=== PATIENT | female | born 1935 | race Caucasian/White ===

== ENCOUNTER 2016-04-28 05:53 | Outpatient (CLI) | payer MEDICARE ==
[~2016-04-28] VITALS: Ht 162.6 cm; Wt 103.6 kg
[~2016-04-28 05:53] MED LIST: ACET-461 PO; ASP81CT PO; ASP81TEC PO; ATEN25TA PO; ATEN50TA PO; ATN25T PO; Atorvastatin Calcium PO; BUDE6HFA IH; CALC-80 PO; CEFD300C3 PO; CEPH500C; CHOL50003 PO; CITA10TA70 PO; CLCX200C; D50KC PO; DIPH1TAB25 PO; DIPH1TAB29 PO; ESCT10T; FEXO180T PO; FISH OIL 1,2001 EAC1 PO; FLC1T PO; FOLI0.4T2 PO; FOLI1TAB11 PO; GMFB600T; HYDR-3714 PO; HYDR-3812 PO; IRON150C6 PO; LMTL2.5TRX PO; MTX2.5T PO; MULT-608 PO; NITR-65 PO; OMEG1CAP58 PO; ONDA4TAB11 PO; ONDA8TAB2; PHEN200T27 PO; ROPI0.5T2; SENN1TAB76 PO; TRHC5025; TRIA1TAB2 PO; VIT B12 PO; WARF2.5T PO; WARF5TAB PO; WARF7.5T PO; WRF10T PO; WRF5T PO
--- OUTSIDE RECORDS SUMMARY | 2016-04-28 05:57 | XMS REPORT | Continuity of Care Document ---
Author Author [facility] Organization [facility] Address Unknown Phone Unavailable Care Team Providers Care Safemaker Name Role Phone GUMARO HILL MD PCP Insurance Providers Payer Name Policy Number Subscriber Name Relationship Wps Medicare [id number] Jessi Loay 18 Self / Same As Patient Blue Cross [facility] Supp [id number] Jessi Loya Self / Same As Patient Advance Directives Directive Response Recorded Date/Time Advance Directives No 02/03/14 5:55pm Health Care Power of Zoogler No 02/03/14 5:55pm Organ Donor No 02/03/14 5:55pm Resuscitation Status Full Code 02/03/14 5:55pm Problems Medical Problems Problem Onset Date Status Right upper quadrant pain Unknown Active Nausea Unknown Active Biliary sludge Unknown Active Medications Medication Dose Route Sig Days/Qty Instructions Order Date Discontinued Date Status Celecoxib 06/04/07 12/04/09 Discontinued Methotrexate 10 Mg PO WEEKLY ON Mondays06/04/07 Active Warfarin Sodium 5 Mg PO MON,MON,MON,SUN 06/04/07 04/08/10 Discontinued Warfarin Sodium 7.5 Mg PO ,,Mon06/04/07 04/08/10 Discontinued Gemfibrozil 06/04/07 12/04/09 Discontinued Escitalopram Oxalate 06/04/07 12/04/09 Discontinued Atenolol 1 Tab PO THREE TIMES A DAY 06/04/07 12/04/09 Discontinued Triamterene/HCTZ 06/04/07 12/04/09 Discontinued Triamterene/Hctz 37.5 Mg PO DAILY 12/04/09 Active Fexofenadine HCl 1 Tab PO TWICE A DAY 12/04/09 12/04/09 Discontinued Diphenhydra/Phenyleph/Acetamin 1 Each PO DAILY 12/04/09 12/04/09 Discontinued Atenolol 50 Mg PO TWICE A DAY 12/04/09 Active Atenolol 25 Mg PO EVENING 12/04/09 12/05/09 Discontinued Citalopram Hydrobromide 10 Mg PO DAILY 12/04/09 Active Folic Acid 2 Each PO DAILY 12/04/09 04/08/10 Discontinued Calcium Carbonate/Vitamin D3 1 Each PO TWICE A DAY 12/04/09 Active Colbert-3 Fatty Acids/Fish Oil 1 Each PO TWICE A DAY 12/04/09 Active Diphenoxylate/Atropine 1 Ea PO TWICE A DAY PRN 12/04/09 Active [Vit B12] 1,000 Mcg PO DAILY 12/04/09 Active Folic Acid/Mv,Fe,Other Min 1 Mg PO DAILY 12/04/09 04/08/10 Discontinued Acetaminophen 500 - 1000 Mg PO EVERY 4HRS PRN 04/08/10 Active Multivitamins 1 Tab PO DAILY 04/08/10 05/01/12 Discontinued Colbert-3/Colbert-6/Colbert-9 Fatty Acids (Lovaza) 1 Each PO 04/08/10 Discontinued Senna 1 Ea PO TWICE A DAY 04/08/10 05/01/12 Discontinued Folic Acid 1 Mg PO DAILY 04/08/10 Active Warfarin Sodium 7.5 Mg PO Garcia,Tu,Th,Sa 04/08/10 Active Warfarin Sodium 5 Mg PO [email or web address] 05/01/12 Active Cholecalciferol 5,000 Unit PO DAILY 05/01/12 Active Ergocalciferol 50,000 Unit PO 2X month 05/01/12 Active Aspirin 81 Mg PO DAILY 05/29/12 Active Ondansetron 4 Mg PO EVERY 6 HOURS PRN NAUSEA/VOMITING 10 Qty 01/28/14 Active Hydrocodone Bit/Acetaminophen 0.5-1 Tab PO EVERY 4HRS PRN PAIN 14 Qty 01/28/14 Active Social History Social History Problem Response Recorded Date/Time Alcohol Use Occasionally Uses 02/03/2014 6:07pm Recreational Drug Use No 02/03/2014 6:07pm Recent Foreign Travel No 02/03/2014 6:07pm Recent Infectious Disease Exposure No 02/03/2014 6:07pm Hospitalization with Isolation Denies 02/04/2014 4:04pm Sexually Transmitted Disease No 02/03/2014 6:07pm HIV/AIDS No 02/03/2014 6:07pm Smoking Status Former Smoker 02/03/2014 5:57pm Do you dip or chew tobacco? No 02/03/2014 5:57pm Query Response Start Date Stop Date Smoking Status Former Smoker 02/13/1977 Hospital Discharge Instructions Patient Instructions Physician Instructions New, Converted or Re-Newed RX: RX on Chart Plan of Care/Instructions/FU: Dressings off in a.m.(02/04). Incentive spirometry for at least 1 week. Follow up in 3 weeks. Activity as Tolerated: Yes Discharge Diet: Regular Diet Plan of Care Discharge Date 02/04/14 3:25pm Disposition 01 HOME, SELF-CARE Instructions/Education Provided Laparoscopic Cholecystectomy (DC) Forms Provided PDI Surgical Prescriptions See Medications Section Referrals JOSESITO VERONICA MD (Unspecified) Address: [address] [place] [address] Reason(s) for Referral: FOLLOW UP APPOINTMENT: February AT 2:15PM WITH DR. VERONICA. Functional Status Query Response Date Recorded Patient Orientation Person Place Time Situation Normal For Age February 04, 2014 4:04pm Allergies, Adverse Reactions, Alerts Allergen Type Severity Reaction Status Last Updated No Known Drug Allergies Active 06/04/07 Immunizations Name Given Type Date of Pneumonia Vaccine 02/14/08 Historical Date of Influenza Vaccine 11/27/13 Historical Vital Signs Acute Vital Signs Vital Response Date/Time Temperature (Fahrenheit) 97.7 degrees F (97.6 - 99.5) Temperature (Calculated Celsius) 36.18280 degrees C (36.4 - 37.5) Temperature Source Tympanic Pulse Rate (adult) 53 bpm (60 - 90) Respiratory Rate 18 bpm (12 - 24) O2 Sat by Pulse Oximetry 92 % (88 - 100) Blood Pressure 121/65 mm Hg Pain Pain Intensity 1 Height (Feet) 5 feet Height (Inches) 4.00 inches Height (Calculated Centimeters) 162.880656 cm Weight (Pounds) 216 pounds Weight (Ounces) 6.0 oz Weight (Calculated Grams) 28801.050 gm Weight (Calculated Kilograms) 98.959577 kilograms Calculated BMI 37.07 Results Laboratory Results Test Name Result Units Flags Reference Collection Date/Time Result Date/ Time Comments White Blood Count 3.5 10^3/uL L 4.3-11.0 01/28/2014 11:38am 01/28/2014 11 :57am Red Blood Count 4.34 10^6/uL L 4.35-5.85 01/28/2014 11:38am 01/28/2014 11 :57am Hemoglobin 13.7 G/DL 11.5-16.0 01/28/2014 11:38am 01/28/2014 11:57am Hematocrit 42 % 35-52 01/28/2014 11:38am 01/28/2014 11:57am Mean Corpuscular Volume 96 FL 80-99 01/28/2014 11:38am 01/28/2014 11: 57am Mean Corpuscular Hemoglobin 32 PG 25-34 01/28/2014 11:38am 01/28/2014 11:57am Mean Corpuscular Hemoglobin Concent 33 G/DL 32-36 01/28/2014 11:38am 11:57am Red Cell Distribution Width 15.7 % H 10.0-14.5 01/28/2014 11:38am 2013 11:57am Platelet Count 121 10^3/uL L 130-400 01/28/2014 11:38am 01/28/2014 11: 57am Mean Platelet Volume 11.3 FL H 7.4-10.4 01/28/2014 11:38am 01/28/2014 11: 57am Neutrophils (%) (Auto) 56 % 42-75 01/28/2014 11:38am 01/28/2014 11: 57am Lymphocytes (%) (Auto) 34 % 12-44 01/28/2014 11:38am 01/28/2014 11: 57am Monocytes (%) (Auto) 9 % 0-12 01/28/2014 11:38am 01/28/2014 11:57am Eosinophils (%) (Auto) 1 % 0-10 01/28/2014 11:38am 01/28/2014 11:57am Basophils (%) (Auto) 1 % 0-10 01/28/2014 11:38am 01/28/2014 11:57am Neutrophils # (Auto) 1.9 X 10^3 1.8-7.8 01/28/2014 11:38am 01/28/2014 11:57am Lymphocytes # (Auto) 1.2 X 10^3 1.0-4.0 01/28/2014 11:38am 01/28/2014 11:57am Monocytes # (Auto) 0.3 X 10^3 0.0-1.0 01/28/2014 11:38am 01/28/2014 11: 57am Eosinophils # (Auto) 0.0 10^3/uL 0.0-0.3 01/28/2014 11:38am 01/28/2014 11:57am Basophils # (Auto) 0.0 10^3/uL 0.0-0.1 01/28/2014 11:38am 01/28/2014 11 :57am Prothrombin Time 22.1 SEC H 12.2-14.7 01/28/2014 11:38am 01/28/2014 12: 04pm INR Comment 2.0 H 0.8-1.4 01/28/2014 11:38am 01/28/2014 12:04pm INTERPRETIVE DATA SUGGESTED THERAPEUTIC RANGE FOR INR'S: VENOUS THROMBOSIS, PULMONARY EMBOLISM, OR PREVENTION OF SYSTEMIC EMBOLISM (EG. IN ATRIAL FIBRILLATION): 2.0 - 3.0 MECHANICAL PROSTHETIC HEART VALVES: 2.5 - 3.5* *NOTE: INR'S UP TO 4.5 MAY BE NECESSARY IN SELECTED GROUPS OF HIGH RISK PATIENTS. [employer] [place] COL[employer] OF CHEST PHYSICIANS CONSENSUS CONFERENCE ON ANTITHROMBOTIC THERAPY (2000). Activated Partial Thromboplast Time 37 SEC H 24-35 01/28/2014 11:38am 12:04pm Urine Color YELLOW 01/28/2014 11:08am 01/28/2014 12:04pm Urine Clarity CLEAR 01/28/2014 11:08am 01/28/2014 12:04pm Urine pH 7 5-9 01/28/2014 11:08am 01/28/2014 12:04pm Urine Specific [place] 1.010 * 1.016-1.022 01/28/2014 11:08am 2013 12:04pm Urine Protein NEGATIVE NEGATIVE 01/28/2014 11:08am 01/28/2014 12: 04pm Urine Glucose (UA) NEGATIVE NEGATIVE 01/28/2014 11:08am 01/28/2014 12 :04pm Urine RBC (Auto) NEGATIVE NEGATIVE 01/28/2014 11:08am 01/28/2014 12: 04pm Urine Ketones NEGATIVE NEGATIVE 01/28/2014 11:08am 01/28/2014 12: 04pm Urine Nitrite NEGATIVE NEGATIVE 01/28/2014 11:08am 01/28/2014 12: 04pm Urine Bilirubin NEGATIVE NEGATIVE 01/28/2014 11:08am 01/28/2014 12: 04pm Urine Urobilinogen NORMAL MG/DL NORMAL 01/28/2014 11:08am 01/28/2014 12 :04pm Urine Leukocyte Esterase NEGATIVE NEGATIVE 01/28/2014 11:08am 2013 12:04pm Urine RBC NONE /HPF 01/28/2014 11:08am 01/28/2014 12:04pm Urine WBC NONE /HPF 01/28/2014 11:08am 01/28/2014 12:04pm Urine Bacteria NEGATIVE /HPF 01/28/2014 11:08am 01/28/2014 12:04pm Urine Squamous Epithelial Cells RARE /HPF 01/28/2014 11:08am 2013 12:04pm Urine Crystals NONE /LPF 01/28/2014 11:08am 01/28/2014 12:04pm Urine Casts NONE /LPF 01/28/2014 11:08am 01/28/2014 12:04pm Urine Mucus NEGATIVE /LPF 01/28/2014 11:08am 01/28/2014 12:04pm Urine Culture Indicated NO 01/28/2014 11:08am 01/28/2014 12:04pm Sodium Level 139 MMOL/L 135-145 01/28/2014 11:38am 01/28/2014 12:10pm Potassium Level 4.7 MMOL/L 3.6-5.0 01/28/2014 11:38am 01/28/2014 12: 10pm Chloride Level 102 MMOL/L 98-107 01/28/2014 11:38am 01/28/2014 12:10pm Carbon Dioxide Level 27 MMOL/L 21-32 01/28/2014 11:38am 01/28/2014 12: 10pm Blood Urea Nitrogen 18 MG/DL 7-18 01/28/2014 11:38am 01/28/2014 12: 10pm Creatinine 0.77 MG/DL 0.60-1.30 01/28/2014 11:38am 01/28/2014 12:10pm BUN/Creatinine Ratio 23 01/28/2014 11:38am 01/28/2014 12:10pm Estimat Glomerular Filtration Rate > 60 01/28/2014 11:38am 2013 12:10pm GFR INTERPRETIVE DATA UNITS FOR ESTIMATED GFR (eGFR): mL/min/1.73 M2 REFERENCE RANGE FOR ESTIMATED GFR (eGFR) eGFR NORMAL eGFR >60 MODERATELY DECREASED eGFR 30-59 SEVERLY DECREASED eGFR 15-29 KIDNEY FAILURE <15 (OR DIALYSIS) Glucose Level 100 MG/DL 70-105 01/28/2014 11:38am 01/28/2014 12:10pm Calcium Level 9.1 MG/DL 8.5-10.1 01/28/2014 11:38am 01/28/2014 12:10pm Total Bilirubin 0.7 MG/DL 0.1-1.0 01/28/2014 11:38am 01/28/2014 12: 10pm Alkaline Phosphatase 43 U/L 40-136 01/28/2014 11:38am 01/28/2014 12: 10pm Aspartate Amino Transf (AST/SGOT) 24 U/L 5-34 01/28/2014 11:38am 2013 12:10pm Alanine Aminotransferase (ALT/SGPT) 21 U/L 0-55 01/28/2014 11:38am 12:10pm Total Protein 6.7 G/DL 6.4-8.2 01/28/2014 11:38am 01/28/2014 12:10pm Albumin 3.9 G/DL 3.2-4.5 01/28/2014 11:38am 01/28/2014 12:10pm Lipase 14 U/L 8-78 01/28/2014 11:38am 01/28/2014 12:10pm Procedures Procedure Status Date Provider(s) Laparoscopic cholecystectomy completed 02/03/14 JOSESITO VERONICA MD Tracing only of electrocardiogram completed 02/03/14 JOSESITO VERONICA MD Encounters Encounter Location Date/Time Discharged Inpatient Via [facility] 02/03/14 5:11pm Registered Clinic [facility] 01/29/14 2:32pm Departed Emergency Room [facility] 01/28/14 11:02am Registered Clinic [facility] 01/24/14 9:52am
[2016-04-28] MEDS ORDERED: PARO20TA5 PO (10:45)
== END 2016-04-28 11:07 ==
LOC: PREOP 05:53
PROVIDERS: ATTEND Surgery
DX: Z01.818 Encounter for other preprocedural examination (principal); Z12.11 Encounter for screening for malignant neoplasm of colon

== ENCOUNTER 2016-05-02 10:23 | Day surgery (SDC) | payer MEDICARE ==
[~2016-05-02] VITALS: Ht 162.6 cm; Wt 103.6 kg
[~2016-05-02 10:23] MED LIST changes: +PARO20TA5 PO
--- OUTSIDE RECORDS SUMMARY | 2016-05-02 10:28 | XMS REPORT | Continuity of Care Document ---
Author Author [facility] Organization [facility] Address Unknown Phone Unavailable Care Team Providers Care Parachute Inspector Name Role Phone GUMARO HILL MD PCP Insurance Providers Payer Name Policy Number Subscriber Name Relationship Wps Medicare [id number] Jessi Loya 18 Self / Same As Patient Blue Cross [facility] Supp [id number] Jessi Loya Self / Same As Patient Advance Directives Directive Response Recorded Date/Time Advance Directives No 02/03/14 5:55pm Health Care Power of Stab Setter And Driller No 02/03/14 5:55pm Organ Donor No 02/03/14 [...] Each PO TWICE A DAY 12/04/09 Active [place]-3 Fatty Acids/Fish Oil 1 Each PO TWICE A DAY 12/04/09 Active Diphenoxylate/Atropine 1 Ea PO TWICE A DAY PRN 12/04/09 Active [Vit B12] 1,000 Mcg PO DAILY 12/04/09 Active Folic Acid/Mv,Fe,Other Min 1 Mg PO DAILY 12/04/09 04/08/10 Discontinued Acetaminophen 500 - 1000 Mg PO EVERY 4HRS PRN 04/08/10 Active Multivitamins 1 Tab PO DAILY 04/08/10 05/01/12 Discontinued [place]ier-3/Whittier-6/[place]ittier-9 Fatty Acids (Lovaza) 1 Each PO 04/08/10 [...] Section Referrals JOSESITO VERONICA MD (Unspecified) Address: [address] [place] [address] Reason(s) for Referral: FOLLOW UP APPOINTMENT: February [...] F (97.6 - 99.5) Temperature (Calculated Celsius) 36.25112 degrees C (36.4 - 37.5) Temperature Source Tympanic Pulse Rate (adult) 53 bpm (60 - 90) Respiratory Rate 18 bpm (12 - 24) O2 Sat by Pulse Oximetry 92 % (88 - 100) Blood Pressure 121/65 mm Hg Pain Pain Intensity 1 Height (Feet) 5 feet Height (Inches) 4.00 inches Height (Calculated Centimeters) 162.981448 cm Weight (Pounds) 216 pounds Weight (Ounces) 6.0 oz Weight (Calculated Grams) 14147.050 gm Weight (Calculated Kilograms) 98.572412 kilograms Calculated BMI 37.07 Results Laboratory Results [...] SELECTED GROUPS OF HIGH RISK PATIENTS. [employer] [place] [employer] CONSENSUS CONFERENCE ON ANTITHROMBOTIC THERAPY (2000). Activated Partial Thromboplast Time 37 SEC H 24-35 01/28/2014 11:38am 12:04pm Urine Color YELLOW 01/28/2014 11:08am 01/28/2014 12:04pm Urine Clarity CLEAR 01/28/2014 11:08am 01/28/2014 12:04pm Urine pH 7 5-9 01/28/2014 11:08am 01/28/2014 12:04pm Urine Specific [place] 1.010 * 1.016-1.022 01/28/2014 11:08am 2013 12:04pm [...] Encounters Encounter Location Date/Time Discharged Inpatient [facility] 02/03/14 5:11pm Registered Clinic [facility] 01/29/14 2:32pm Departed Emergency Room Via [facility] 01/28/14 11:02am Registered Clinic [facility] 01/24/14 9:52am
--- OUTSIDE RECORDS SUMMARY | 2016-05-02 10:29 | XMS REPORT | Continuity of Care Document ---
Author Author [facility] Organization [facility] Address Unknown Phone Unavailable Care Team Providers Care Application Tester Name Role Phone GUMARO HILL MD PCP Insurance Providers Payer Name Policy Number Subscriber Name Relationship Wps Medicare [id number] Jessi Loya 18 Self / Same As Patient Blue Cross [facility] Supp [id number] Jessi Loya Self / Same As Patient Advance Directives Directive Response Recorded Date/Time Advance Directives No 02/03/14 5:55pm Health Care Power of Shop Girl No 02/03/14 5:55pm Organ Donor No 02/03/14 [...] Each PO TWICE A DAY 12/04/09 Active Melbeta-3 Fatty Acids/Fish Oil 1 Each PO TWICE A DAY 12/04/09 Active Diphenoxylate/Atropine 1 Ea PO TWICE A DAY PRN 12/04/09 Active [Vit B12] 1,000 Mcg PO DAILY 12/04/09 Active Folic Acid/Mv,Fe,Other Min 1 Mg PO DAILY 12/04/09 04/08/10 Discontinued Acetaminophen 500 - 1000 Mg PO EVERY 4HRS PRN 04/08/10 Active Multivitamins 1 Tab PO DAILY 04/08/10 05/01/12 Discontinued Melbeta-3/Melbeta-6/Melbeta-9 Fatty Acids (Lovaza) 1 Each PO 04/08/10 [...] Section Referrals JOSESITO VERONICA MD (Unspecified) Address: [address] [place] [address] Reason(s) for Referral: FOLLOW UP APPOINTMENT: February [...] F (97.6 - 99.5) Temperature (Calculated Celsius) 36.19973 degrees C (36.4 - 37.5) Temperature Source Tympanic Pulse Rate (adult) 53 bpm (60 - 90) Respiratory Rate 18 bpm (12 - 24) O2 Sat by Pulse Oximetry 92 % (88 - 100) Blood Pressure 121/65 mm Hg Pain Pain Intensity 1 Height (Feet) 5 feet Height (Inches) 4.00 inches Height (Calculated Centimeters) 162.001645 cm Weight (Pounds) 216 pounds Weight (Ounces) 6.0 oz Weight (Calculated Grams) 69291.050 gm Weight (Calculated Kilograms) 98.068132 kilograms Calculated BMI 37.07 Results Laboratory Results [...] SELECTED GROUPS OF HIGH RISK PATIENTS. [employer] [place] [employer] CONSENSUS CONFERENCE ON ANTITHROMBOTIC THERAPY (2000). Activated Partial Thromboplast Time 37 SEC H 24-35 01/28/2014 11:38am 12:04pm Urine Color YELLOW 01/28/2014 11:08am 01/28/2014 12:04pm Urine Clarity CLEAR 01/28/2014 11:08am 01/28/2014 12:04pm Urine pH 7 5-9 01/28/2014 11:08am 01/28/2014 12:04pm Urine Specific [place] 1.010 * 1.016-1.022 01/28/2014 11:08am 2013 12:04pm [...] Encounter Location Date/Time Discharged Inpatient [facility] 02/03/14 5:11pm Registered Clinic [facility] 01/29/14 2:32pm Departed Emergency Room [facility] 01/28/14 11:02am Registered Clinic [facility] 01/24/14 9:52am
[2016-05-02 10:45] VITALS: BP 128/76
[2016-05-02] MEDS ORDERED: NS IV 500 ML 500 ML IV PRN (10:45)
[2016-05-02] MEDS ORDERED: FLUMAZENIL (ROMAZICON) 0.1 MG/ML 5 ML VIAL INJ PRN (10:45)
[2016-05-02] MEDS ORDERED: NALOXONE 0.4 MG/ML 1 ML (NARCAN) VIAL IVP PRN (10:45)
[2016-05-02] MEDS ORDERED: fentaNYL INJECTION 100 MCG/2 ML AMP ONE ×2 (10:56)
[2016-05-02] MEDS ORDERED: MIDAZOLAM 2 MG/2 ML (VERSED) VIAL ONE ×4 (10:56)
--- NOTE | 2016-05-02 11:00 | Pre-Op Note & Conscious Sedat ---
Pre-Operative Progress Note H&P Reviewed The H&P was reviewed, patient examined and no changes noted. Date H&P Reviewed: May 02, 2016 Time H&P Reviewed: 10:59 Pre-Op Diagnosis: screening Conscious Sedation Pre-Proced ASA Class: 2 Airway Mallampati Classification: ([place] appropriate class) I. II. III, IV Lungs Heart ASA score ASA 1: a normal healthy patient ASA 2: a patient with a mild systemic disease (mid diabetes, controlled hypertension, obesity ASA 3: a patient with a severe systemic disease that limits activity (angina , COPD, prior Myocardial infarction) ASA 4: a patient with an incapacitating disease that is a constant threat to life (CHF, renal failure) ASA 5: a moribund patient not expected to survive 24 hrs. (ruptured aneurysm) ASA 6: a declared brain patient whose organs are being harvested. For emergent operations, add the letter E after the classification Grade 1 Sedation Plan: Discussed options with patient/fam Note The patient is an appropriate candidate to undergo the planned procedure, sedation, and anesthesia. The patient immediately re-assessed prior to indication. JOSESITO VERONICA MD May 02, 2016 10:59 am
[2016-05-02] MEDS: fentaNYL INJECTION 100 MCG/2 ML AMP IVP PRN ×4 (11:30→11:44)
[2016-05-02] MEDS: MIDAZOLAM 2 MG/2 ML (VERSED) VIAL IVP PRN ×3 (11:31→11:41)
--- NOTE | 2016-05-02 11:54 | Progress Note-Post Operative ---
Post-Operative Progess Note Pre-Operative Diagnosis screening Post-Operative Diagnosis scattered diverticula Post-Op Procedure Note Date of Procedure: May 02, 2016 Name of Procedure: colonoscopy to cecum Anesthesia Type sedation JOSESITO VERONICA MD May 02, 2016 11:54 am
--- NOTE | 2016-05-02 11:55 | Discharge Inst-Simple/Standard ---
Discharge Inst-Standard Discharge Medications New, Converted or Re-Newed RX: Other Patient Instructions/Follow Up Plan of Care/Instructions/FU: please provide printed information on high fiber diet and diverticulosis Activity as Tolerated: Yes Discharge Diet: No Restrictions JOSESITO VERONICA MD May 02, 2016 11:55 am
[2016-05-02 12:15] VITALS: BP 117/62
[2016-05-02 12:45] VITALS: BP 129/58
[2016-05-02 13:00] VITALS: BP 129/58
--- NOTE | 2016-05-03 09:27 | PROCEDURE REPORT ---
PROCEDURE PHYSICIAN: JOSESITO VERONICA DATE OF PROCEDURE: 05/02/2016 PROCEDURE: Screening colonoscopy. SURGEON: Dr. Veronica. INDICATION FOR THE PROCEDURE: This lady came in for screening colonoscopy. She denied any family history of colon cancer or polyps. Informed consent was obtained after reviewing the procedure in detail. DESCRIPTION OF PROCEDURE: She was placed in left lateral decubitus position and her vital signs were monitored. Conscious sedation was achieved using Versed and fentanyl. Digital rectal examination was unremarkable. The colonoscope was then introduced into the rectum and advanced all the way up to the cecum. It was then withdrawn slowly and the mucosa examined in a systematic fashion. FINDINGS: 1. Scattered diverticulae. 2. No polyps were found. She tolerated the procedure well and was taken back to the nursing area in a stable condition. IMPRESSION: 1. Screening colonoscopy. 2. No polyps. Job ID: [id number] Dictated Date: 05/02/2016 11:49:52 Processing Analyst Date: 05/03/2016 09:24:24 / james JADE
== END 2016-05-02 13:00 | disposition home or self-care (01) ==
LOC: ENDO 10:23
PROVIDERS: ATTEND Surgery
DX: Z12.11 Encounter for screening for malignant neoplasm of colon (principal); K57.90 Diverticulosis of intestine, part unspecified, without perforation or abscess without bleeding

== ENCOUNTER 2016-07-26 19:20 | Emergency (ER) | payer MEDICARE ==
[~2016-07-26] VITALS: Ht 162.6 cm; Wt 104.3 kg
--- NOTE | 2016-07-26 20:10 | Diagnostic Imaging Report ---
Clinical indication: Patient status post fall with knot over left eye. Exams: 1: Axial Head CT without IV contrast. 2: Axial Maxillofacial CT scan without IV contrast with sagittal and coronal reformations. Comparison: CT scan of the head and cervical spine dated 03/25/2015. Findings: Head CT: There is no evidence of acute cerebral infarct, intracranial hemorrhage, or gross mass effect. Again seen focal and patchy areas of low-attenuation white matter changes seen throughout both cerebral hemispheres, likely representing chronic small vessel ischemic disease. There is normal watson-white matter distinction. The brain parenchymal volume appears appropriate for patient's age. There is no significant midline shift or herniation. There is no evidence of hydrocephalus. The basal cisterns are unremarkable. Maxillofacial CT: There is subtle bony irregularity involving the bilateral nasal bones near the nasomaxillary suture regions which may represent a fracture of unknown age. This area was not imaged on the prior CT scan. Clinical correlation for pain in this region would help better evaluate. Otherwise, there is no maxillofacial fracture. There is interval development of a small amount of extracranial soft tissue swelling in the left periorbital region. There is no associated skull fracture. There is no globe or retrobulbar abnormality. Otherwise, the skull, extracranial soft tissue, and orbits are unremarkable. There is a small mucous retention cyst and/or polyp in the sphenoid sinus again seen which is partially calcified. Mastoid air cells show no acute finding. Impression: 1: Again seen age-related brain parenchymal changes with chronic small vessel ischemic disease. There is no evidence of acute intracranial process or intracranial hemorrhage. 2: There is small amount of extracranial soft tissue swelling in the left periorbital region. There is no adjacent skull fracture or acute globe abnormality. 3: There is subtle bony disruption involving the bilateral nasal bones in the region of the bilateral nasal maxillary sutures. These likely represent fractures of unknown age. Clinical correlation for pain in this region would help better evaluate. 4: Again seen small polyp or mucous retention cyst involving the sphenoid sinus. Dictated by: Dictated on workstation # [id number]
--- NOTE | 2016-07-26 20:26 | ED Head Injury ---
General Chief Complaint: Trauma-Non Activation Stated Complaint: FALL Nursing Triage Note: PT TO ED PER EMS W/ C/O LT FACE PAIN R/T FALL. SEE TRAUMA ASSESSMENT Source: patient, EMS Exam Limitations: no limitations History of Present Illness Time seen by provider: 19:20 Initial Comments 80-year-old female patient presents to the emergency department with complaints tripping and falling onto her left face. Complains of swelling, bruising and pain to the left forehead/eyebrow. Also complains of pain to the left hand and bilateral knees. Denies loss of consciousness, dizziness, n/v, neck pain or back pain. Location Injury Occurred: HOME Occurred: just prior to arrival Location: frontal (left forehead/eyebrow) Method of Injury: fell Loss of Consciousness: no loss of consciousness Allergies and Home Medications Allergies Coded Allergies: No Known Drug Allergies (Verified , 06/04/07) Home Medications Acetaminophen 500 Mg Tablet, 500-1,000 MG PO Q4H PRN for PAIN, (Reported) Aspirin 81 Mg Chew, 81 MG PO DAILY, (Reported) Atenolol 50 Mg Tablet, 50 MG PO BID, (Reported) Calcium Carbonate/Vitamin D3 1 Each Tablet, 1 EACH PO BID, (Reported) Cholecalciferol 5,000 Unit Tablet, 5,000 UNIT PO DAILY, (Reported) Diphenoxylate HCl/Atropine 1 Each Tablet, 1 TAB PO TID PRN for DIARRHEA, ( Reported) Ergocalciferol 50,000 Unit Capsule, 50,000 UNIT PO 2X month, (Reported) [place]-3 Fatty Acids/Fish Oil 1 Each Capsule, 1 EACH PO BID, (Reported) Paroxetine HCl 20 Mg Tablet, 20 MG PO DAILY, (Reported) Warfarin Sodium 2.5 Mg Tablet, 7.5 MG PO SUN,E,,SAT, (Reported) take 1 1/2 of 5mg tab for total of 7.5mg Warfarin Sodium 5 Mg Tablet, 5 MG PO Mon, (Reported) Constitutional: No dizziness, No weakness Eyes: See HPI, Denies Blurred Vision, Denies Drainage, Pain (left eyebrow), Denies Photophobia, Denies Vision Changes Ears, Nose, Mouth, Throat: denies ear pain, denies ear discharge, denies nose pain, denies nose discharge, denies epistaxis, denies mouth pain, denies throat pain Respiratory: no symptoms reported Cardiovascular: no symptoms reported Gastrointestinal: no symptoms reported Genitourinary: no symptoms reported Musculoskeletal: see HPI, No back pain, joint pain, No neck pain Skin: change in color (bruising to the left eyebrow/forehead, left hand, and knees) Psychiatric/Neurological: Denies Cognitive Dysfunction, Denies Headache, Denies Numbness, Denies [place] Seizures, Denies Tingling, Denies Tonic Clonic Seizures, Denies Unable to Move Lower Ext, Denies Unable to Move Upper Ext, Denies Weakness All Other Systems Reviewed Negative Unless Noted: Yes (Negative excepted noted.) Past Bdbwqgg-Qivnvu-Yocosl Hx Patient Social History Alcohol Use: Denies Use Recreational Drug Use: No Smoking Status: Never a Smoker Former Smoker/When Quit: Feb 13, 1966 Recent Foreign Travel: No Contact w/Someone Who Travel: No Recent Infectious Disease Expo: No Recent Hopitalizations: No Immunizations Up To Date Date of Pneumonia Vaccine: Feb 14, 2008 Date of Influenza Vaccine: Dec 07, 2015 Seasonal Allergies Seasonal Allergies: No Surgeries HX Surgeries: Yes (R THR, R ANKLE ORIF, CYST NECK, Lt TKR) Surgeries: Cardiac, CABG, Gallbladder, Joint Replacement, Orthopedic Respiratory Hx Respiratory Disorders: No Cardiovascular Hx Cardiac Disorders: Yes (SINUS NODE DYSFUCTION HX) Cardiac Disorders: Atrial Fibrillation, Coronary Artery Disease, High Cholesterol, Hypertension Neurological Hx Neurological Disorders: No 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 System Hx 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 Disorders: No Sexually Transmitted Disease: No HIV/AIDS: No Female 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 Disorders: Denies 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 Genitourinary Hx Genitourinary Disorders: Yes Genitourinary Disorders: Bladder Infection Gastrointestinal Hx Gastrointestinal Disorders: Yes Gastrointestinal Disorders: Gastroesophageal Reflux, Irritable Bowel Musculoskeletal Hx Musculoskeletal Disorders: Yes (FX R ANKLE, R Hip Replacement, Lt knee) Musculoskeletal Disorders: Arthritis, Rheumatoid Arthritis, Fractures Endocrine Hx Endocrine Disorders: No HEENT HX ENT Disorders: Yes HEENT Disorders: Cataract Loss of Vision: Denies Hearing Impairment: Denies Cancer Hx Cancer: No Psychosocial Hx Psychiatric Problems: Yes Behavioral Health Disorders: Depression Integumentary HX Skin/Integumentary Disorder: No Blood Transfusions Hx Blood Disorders: No Adverse Reaction to a Blood Tr: No Reviewed Nursing Assessment Reviewed/Agree w Nursing PMH: Yes Family Medical History Significant Family History: Heart Disease, Cancer, Hypertension, Stroke Family Medial History: Cardiovascular disease G8 SISTER Completed stroke 19 MOTHER G8 SISTER FH: blood disorder 19 FATHER FH: lung cancer G8 SISTER FH: ovarian cancer G8 SISTER FHx: obesity G8 SISTER G8 SISTER G8 SISTER Hypertension 19 MOTHER Physical Exam Vital Signs Vital Sign - Last 12Hours 07/26/16 19:20 Temp 97.0 Pulse 63 Resp 18 B/P (MAP) 195/93 Pulse Ox 97 O2 Delivery Room Air Capillary Refill : Less Than 3 Seconds General Appearance: WD/WN, no apparent distress HEENT: PERRL/EOMI, normal ENT inspection, TMs normal, pharynx normal, other ( swelling, tenderness, and ecchymosis left supraorbital ridge.) Neck: non-tender, full range of motion, supple, normal inspection Cardiovascular: normal peripheral pulses, regular rate, rhythm, no murmur Respiratory: lungs clear, normal breath sounds, no respiratory distress Gastrointestinal: normal bowel sounds, non tender, soft, No distended Back: normal inspection, no vertebral tenderness Extremities: normal range of motion, normal capillary refill, pelvis stable, other (left hand shows ecchymosis to the martinez surface with soft tissue tenderness only. bilateral anterior knees show mild ecchymosis and tenderness w /o deformity.) Psychiatric: alert, oriented x 3, other (appropriate affect) Crainal Nerves: normal hearing, normal speech, PERRL Coordination/Gait: normal finger to nose, negative Romberg's sign, other ( patient walks with a limp.) Motor/Sensory: no motor deficit, no sensory deficit, no pronator drift Skin: ecchymosis (left hand shows ecchymosis to the martinez surface with soft tissue tenderness only. bilateral anterior knees show mild ecchymosis and tenderness w/o deformity. ecchymosis, swelling and tenderness left supraorbital ridge.) Darleen Coma Score Best Eye Response: (4) Open Spontaneously Best Verbal Response: (5) Oriented Best Motor Response: (6) Obeys Commands [place] Total: 15 Progress/Results/Core Measures Results/Orders My Orders Orders - NICKOLAS SCHREIBER Ct Head/Maxillofacial Wo (07/26/16 19:33) Knee, 3 Views, Bilateral (07/26/16 19:33) Vital Signs/I&O Vital Sign - Last 12Hours 07/26/16 19:20 Temp 97.0 Pulse 63 Resp 18 B/P (MAP) 195/93 Pulse Ox 97 O2 Delivery Room Air Blood Pressure Mean: 127 Departure Impression Impression: Primary Impression: Minor head injury without loss of consciousness Qualified Codes: S09.90XA - Unspecified injury of head, initial encounter Additional Impressions: Contusion of hand(s) Contusion of knee, right Contusion of knee, left Disposition: 01 HOME, SELF-CARE Condition: Improved Departure-Patient Inst. Decision time for Depature: 21:28 Referrals: GUMARO HILL MD (PCP) Primary Care Physician Patient Instructions: Contusion (DC), Minor Head Injury (DC) Add. Discharge Instructions: All discharge instructions reviewed with patient and/or family. Voiced understanding. Continue usual home medications. Tylenol Extra Strength over- the-counter as directed for pain. Follow-up with Dr. Hill tomorrow in his office, call first thing in the morning for appointment time. Ice pack for 20 minute intervals 2-3 days as needed for pain. Then use a heating pad or pack if needed. No heavy lifting, pushing, pulling, twisting, bending, climbing, or activities which may result and head injury 7 days after headache resolves. Return to the emergency department immediately for worsened pain, dizziness, changes in vision, slurred speech, changes in behavior, neck pain, back pain, shortness of air, chest pain, seizure, vomiting, bowel incontinence, bladder incontinence, or any other concerns. NICKOLAS SCHREIBER Jul 26, 2016 20:26
--- NOTE | 2016-07-26 21:15 | Diagnostic Imaging Report ---
INDICATION: Fall. Knee pain. COMPARISON: Left knee dated 10/12/2014 FINDINGS: 3 views of both knees are obtained. Left knee: There are postoperative changes of prior left knee arthroplasty. No unusual lucency or reaction is seen about the prosthetic components which appear stable in alignment. No acute fracture or new osseous abnormality is demonstrated. Right knee: No acute fracture, malalignment or osseous destructive process is seen. Joint spaces appear preserved. Soft tissues appear unremarkable. IMPRESSION: 1. No acute fracture or acute osseous abnormality is seen bilaterally. 2. Stable postoperative changes of prior left knee arthroplasty Dictated by: Dictated on workstation # [id number]
[2016-07-26 21:58] VITALS: BP 210/94
== END 2016-07-26 21:58 | disposition home or self-care (01) ==
LOC: EDUNIT# 19:21 → ER 19:24
DX: S60.221A Contusion of right hand, initial encounter (principal); S60.222A Contusion of left hand, initial encounter; S80.01XA Contusion of right knee, initial encounter; S80.02XA Contusion of left knee, initial encounter; S09.90XA Unspecified injury of head, initial encounter; I48.91 Unspecified atrial fibrillation; I25.10 Atherosclerotic heart disease of native coronary artery without angina pectoris; I10 Essential (primary) hypertension; M06.9 Rheumatoid arthritis, unspecified; Z79.01 Long term (current) use of anticoagulants; Z95.1 Presence of aortocoronary bypass graft; Z79.82 Long term (current) use of aspirin; W01.0XXA Fall on same level from slipping, tripping and stumbling without subsequent striking against object, initial encounter
CPT/HCPCS: 70450; 70486; 99283

== ENCOUNTER → 2016-09-15 | Outpatient (CLI) | payer MEDICARE ==
--- NOTE | 2016-09-15 13:48 | Diagnostic Imaging Report ---
PROCEDURE: US Thyroid. TECHNIQUE: Multiple real-time grayscale images were obtained of the thyroid in various projections. INDICATION: Abnormal thyroid function test. COMPARISON: None. DISCUSSION: The thyroid gland is normal in echotexture and size. The right thyroid measures 2.7 x 1.4 x 1.2 cm. The left thyroid measures 2.2 x 1.4 x 0.9 cm. There is a solid round hypoechoic nodule within the posterior mid right thyroid gland which measures 0.8 x 1.3 x 1.2 cm. This could represent an partially exophytic thyroid nodule or an adjacent posterior parathyroid adenoma. At a minimum, recommend six-month sonographic followup to document stability. A nuclear medicine thyroid uptake scan could also be performed to assess for a hot or cold nodule. If the patient has symptoms of hyperparathyroidism, a parathyroid uptake scan could also be performed. No abnormal adjacent lymph nodes identified. IMPRESSION: 1. Solid hypoechoic nodule along the posterior aspect of the right thyroid gland could represent an exophytic thyroid nodule or an adjacent parathyroid adenoma. See above discussion and recommendations. Dictated by: Dictated on workstation # [id number]
== END ==
LOC: RAD 12:20
PROVIDERS: ATTEND Allergy & Immunology
DX: E04.1 Nontoxic single thyroid nodule (principal); R94.6 Abnormal results of thyroid function studies
CPT/HCPCS: 76536

== ENCOUNTER 2016-09-29 10:30 | Outpatient (RCR) | payer MEDICARE | END 2016-09-29 11:22 | disposition home or self-care (01) | DX: R53.1 Weakness (principal); F32.9 Major depressive disorder, single episode, unspecified; M81.0 Age-related osteoporosis without current pathological fracture; Z96.651 Presence of right artificial knee joint; Z96.652 Presence of left artificial knee joint ==

== ENCOUNTER → 2016-10-27 | Outpatient (CLI) | payer MEDICARE | LOC: CARD 13:29 | PROVIDERS: ATTEND Nurse Practitioner Family | DX: I25.10 Atherosclerotic heart disease of native coronary artery without angina pectoris (principal); I10 Essential (primary) hypertension; I48.0 Paroxysmal atrial fibrillation; E78.5 Hyperlipidemia, unspecified; I35.8 Other nonrheumatic aortic valve disorders; Z79.01 Long term (current) use of anticoagulants | CPT/HCPCS: 93306 ==

== ENCOUNTER → 2017-03-28 | Outpatient (CLI) | payer MEDICARE ==
[~2017-03-28] MED LIST changes: +ACHD5005 PO; -HYDR-3812 PO
--- NOTE | 2017-03-28 15:23 | Diagnostic Imaging Report ---
PROCEDURE: US Thyroid. TECHNIQUE: Multiple real-time grayscale images were obtained of the thyroid in various projections. INDICATION: Thyroid nodule. Correlation is made with prior thyroid ultrasound from 09/15/2016. FINDINGS: The right lobe of the thyroid measures 2.6 x 1.0 x 1.3 cm and left lobe measures 2.2 x 1.1 x 0.8 cm. The previously noted solid nodule in the right lobe of the thyroid measures 1.5 x 1.2 x 1.0 cm compared with 1.3 x 1.2 x 0.8 cm. No new thyroid mass is identified. IMPRESSION: Mild increase in size of right lobe solid thyroid nodule when compared with examination from 09/15/2016. Fine-needle aspiration could be performed for further evaluation, if clinically indicated. Dictated by: Dictated on workstation # [id number]
== END ==
LOC: RAD 13:50
DX: E04.1 Nontoxic single thyroid nodule (principal)
CPT/HCPCS: 76536

== ENCOUNTER 2017-07-12 16:20 | Outpatient (RCR) | payer MEDICARE | END 2017-07-12 16:52 | disposition home or self-care (01) | PROVIDERS: ATTEND Orthopaedic Surgery | DX: M25.811 Other specified joint disorders, right shoulder (principal) ==

== ENCOUNTER 2017-12-11 13:50 | Outpatient (RCR) | payer MEDICARE | END 2017-12-28 08:41 | disposition home or self-care (01) | PROVIDERS: ATTEND Nurse Practitioner Family | DX: Z47.1 Aftercare following joint replacement surgery (principal); Z96.651 Presence of right artificial knee joint ==

== ENCOUNTER → 2018-01-09 | Outpatient (CLI) | payer MEDICARE ==
--- NOTE | 2018-01-10 13:34 | Diagnostic Imaging Report ---
INDICATION: Thyroid nodule. TECHNIQUE: Patient was administered 194 ?Ci of I-123 orally and a 4-hour and 24-hour thyroid uptake was performed. Thyroid scan was also performed. COMPARISON: Correlation is made with prior thyroid ultrasound from 03/28/2017. FINDINGS: 4-hour uptake is 12% and 24-hour uptake is 31%. 24-hour uptake is upper limits to slightly increased with normal ranges of 10-30%. The scan does demonstrate fairly homogeneous uptake of activity throughout both lobes of the thyroid gland. There is questionable mild photopenia along the lower pole of the right lobe which likely corresponds to the known solid nodule at this location on prior ultrasound. No other areas of hot or cold nodules are seen. IMPRESSION: Fairly normal thyroid uptake. There is questionable cold defect at the lower pole of the right lobe corresponding to the solid nodule noted sonographically. A repeat thyroid ultrasound and possible thyroid FNA could be performed for further evaluation. Dictated by: Dictated on workstation # [id number]
== END ==
LOC: CARD 11:46
DX: E04.1 Nontoxic single thyroid nodule (principal)
CPT/HCPCS: 78014

== ENCOUNTER → 2018-03-02 | Outpatient (CLI) | payer MEDICARE ==
--- NOTE | 2018-03-02 14:04 | Diagnostic Imaging Report ---
INDICATION: Lump in the left breast. COMPARISON: 01/18/2018 and 12/21/2011. TECHNIQUE: Unilateral left 2D and 3D diagnostic mammography was performed including CC, MLO, and 90 degree lateral views with CAD. FINDINGS: A BB marker was placed at the area of palpable abnormality in the left breast. There are scattered fibroglandular densities in the left breast. The overall parenchymal pattern appears to be stable. There are benign-appearing parenchymal and vascular calcifications. No mass or malignant appearing microcalcifications are seen. The left axilla is unremarkable. IMPRESSION: No mammographic features suspicious for malignancy. Even so, sonographic interrogation of the area of palpable abnormality in the left breast is recommended and will be performed today. ACR BI-RADS Category 0: Incomplete. (Needs additional imaging evaluation). Result letter will be mailed to the patient. Note: At least 10% of breast cancer is not imaged by mammography. Dictated by: Dictated on workstation # [id number]
--- NOTE | 2018-03-02 18:11 | Diagnostic Imaging Report ---
INDICATION: Lump in the left breast. EXAMINATION: Sonographic interrogation of the area of lump at the 3 o'clock location in the left breast was performed. FINDINGS: No sonographic abnormality is seen. No solid or cystic mass is detected. IMPRESSION: No sonographic abnormality is seen. Clinical followup is recommended. ACR BI-RADS Category 1: Negative. Result letter will be mailed to the patient. Note: At least 10% of breast cancer is not imaged by mammography. Dictated by: Dictated on workstation # [id number]
== END ==
LOC: RAD 12:51
PROVIDERS: ATTEND Nurse Practitioner Family
DX: N63.20 Unspecified lump in the left breast, unspecified quadrant (principal); D48.62 Neoplasm of uncertain behavior of left breast
CPT/HCPCS: 76642

== ENCOUNTER 2018-03-16 13:42 | Outpatient (RCR) | payer MEDICARE | END 2018-03-17 | disposition home or self-care (01) | LOC: CR3 13:42 | DX: Z29.8 Encounter for other specified prophylactic measures (principal) ==

== ENCOUNTER 2018-04-24 06:00 | Outpatient (RCR) | payer MEDICARE | END 2018-04-26 | disposition home or self-care (01) | LOC: CR3 06:00 | DX: Z29.8 Encounter for other specified prophylactic measures (principal) ==

== ENCOUNTER 2018-05-25 13:22 | Outpatient (RCR) | payer MEDICARE | END 2018-05-27 | disposition home or self-care (01) | LOC: CR3 13:22 | DX: Z29.8 Encounter for other specified prophylactic measures (principal) ==

== ENCOUNTER 2018-05-29 06:00 | Outpatient (RCR) | payer MEDICARE | END 2018-06-28 | disposition home or self-care (01) | LOC: CR3 06:00 | DX: Z29.8 Encounter for other specified prophylactic measures (principal) ==

== ENCOUNTER → 2018-06-12 | Outpatient (CLI) | payer MEDICARE ==
[~2018-06-12] VITALS: Ht 162.6 cm; Wt 95.7 kg
[~2018-06-12] MED LIST changes: +CATHETER FLUSH 10 ML SYR IV PRN; +REGADENOSON 0.4 MG/5 ML SYR (LEXISCAN) IV ONE
[2018-06-12 09:34] VITALS: BP 157/87
[2018-06-12 09:39] VITALS: BP 150/82
--- NOTE | 2018-06-14 15:29 | STRESS TEST ---
DATE OF SERVICE: 06/12/2018 RESTING AND POST REGADENOSON TECHNETIUM-99M TETROFOSMIN SPECT CT IMAGING ORDERING PHYSICIAN: Dr. Sadler. PRIMARY PHYSICIAN: Dr. Vallejo. CLINICAL DIAGNOSIS: Coronary artery disease. Baseline images were carried out after injection of 10.71 mCi of technetium-99m Tetrofosmin. This was followed by 0.4 mg of Regadenoson and 28.4 mCi of technetium-99m Tetrofosmin for stress imaging. The electrocardiogram showed sinus rhythm at baseline. The electrocardiogram did not change significantly with Regadenoson infusion. The patient noted some neck discomfort and flushing with Regadenoson infusion, which resolved in a few minutes. Overall, she tolerated the procedure well. Review of images at rest and following stress does not indicate distinct perfusion defects consistent with significant myocardial ischemia or infarction. Gated images show normal global left ventricular systolic function with normal regional wall motion. Left ventricular ejection fraction is calculated to be 65%. Left ventricular end diastolic volume is 57 mL. TID is absent (1.06). CONCLUSIONS: 1. No evidence of any significant myocardial ischemia or infarction on this study. 2. Normal regional wall motion. 3. Normal global left ventricular systolic function with a calculated ejection fraction of 65%. Job ID: [id number] DocumentID: [id number] Dictated Date: 06/14/2018 13:03:27 Solid Waste Collection Worker Date: 06/14/2018 15:28:53 Dictated By: ZIA SADLER MD, MA, FACP, FACC,
== END ==
LOC: CARD 08:02
PROVIDERS: ATTEND Internal Medicine Cardiovascular Disease
DX: I25.10 Atherosclerotic heart disease of native coronary artery without angina pectoris (principal); I77.9 Disorder of arteries and arterioles, unspecified; I10 Essential (primary) hypertension; E78.5 Hyperlipidemia, unspecified; I48.0 Paroxysmal atrial fibrillation; Z79.01 Long term (current) use of anticoagulants
CPT/HCPCS: 78452; 93017

== ENCOUNTER 2018-11-10 08:31 | Emergency (ER) | payer MEDICARE ==
[~2018-11-10] VITALS: Ht 162.5 cm; Wt 84.1 kg
[~2018-11-10 08:31] MED LIST changes: -CATHETER FLUSH 10 ML SYR IV PRN; -REGADENOSON 0.4 MG/5 ML SYR (LEXISCAN) IV ONE
[2018-11-10] MEDS ORDERED: NS IV 500 ML 500 ML IV ONE (08:55)
[2018-11-10 09:03] LABS: BASOPHILS % (AUTO) 0 % (0-10); EOSINOPHILS % (AUTO) 0 % (0-10); HEMATOCRIT 44 % (35-52); HEMOGLOBIN 14.2 G/DL (11.5-16.0); LYMPHOCYTES # (AUTO) 1.3 X 10^3 (1.0-4.0); LYMPHOCYTES % (AUTO) 25 % (12-44); MEAN CORPUSCULAR HEMOGLOBIN 30 PG (25-34); MEAN CORPUSCULAR HGB CONC 33 G/DL (32-36); MEAN CORPUSCULAR VOLUME 91 FL (80-99); MEAN PLATELET VOLUME 11.3 FL (7.4-10.4); MONOCYTES # (AUTO) 0.4 X 10^3 (0.0-1.0); MONOCYTES % (AUTO) 7 % (0-12); NEUTROPHILS # (AUTO) 3.4 X 10^3 (1.8-7.8); NEUTROPHILS % (AUTO) 67 % (42-75); PLATELET COUNT 125 10^3/uL (130-400); RED CELL DISTRIBUTION WIDTH 15.7 % (10.0-14.5); WHITE BLOOD COUNT 5.1 10^3/uL (4.3-11.0)
--- NOTE | 2018-11-10 09:04 | ED Abdominal Pain ---
General Chief Complaint: Abdominal/GI Problems Stated Complaint: ABD PAIN Nursing Triage Note: Pt to ED with c/o abdominal pain, R flank pain, and nausea. Pt reports being prescribed Bactrim on Mon for UTI. Pt no longer has dysuria but reports abdominal pain has worsened. Sepsis Screen: No Definite Risk Source of Information: Patient Exam Limitations: No Limitations (IVETT FELIPE STUDENT) History of Present Illness Date Seen by Provider: Nov 10, 2018 Time Seen by Provider: 08:50 Initial Comments The patient is a wd/wn 82 y/o female who is here with a chief complaint of abdominal pain. She states that she was diagnosed with a UTI on monday and was started on trimethoprim/sulfamethoxazole. She reports feeling stomach discomfort since then with nausea. Last night she began experiencing abdominal pain that starts in her upper epigastric area and radiates to her right flank. She states that it is a constant crampy pain at 4/10. She also mentions that she was recently diagnosed with "a fatty liver" and that she has a liver cyst that has been present for many years. She has also been experiencing mild diarrhea. She denies chest pain, palpitations, shortness of breath, or recent fevers. Timing/Duration: 3-4 Days Severity/Quality: Mild Location: Epigastric, Flank Radiation: Flank Associated Symptoms: No Fever/Chills; Nausea/Vomiting (IVETT FELIPE STUDENT) Initial Comments In addition to taking the antibiotic discussed above, patient does take Tylenol arthritis 2 tablets 3 times a day for pain. 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 She is on warfarin. Pain seems to be onset with onset of trimethoprim/sulfamethoxazole antibiotic. Timing/Duration: 3-4 Days Severity/Quality: Mild, Aching Location: Epigastric Radiation: Flank Activities at Onset: None Modifying Factors: Worsens With Eating; Improves With Resting Associated Symptoms: No Back Pain, No Chest Pain, No Fever/Chills; Nausea/Vomiting; No Swelling/Mass in Abdomen, No Weakness (KENYON ACKERMAN MD) Allergies and Home Medications Allergies Coded Allergies: No Known Drug Allergies (Verified , 06/04/07) Home Medications Acetaminophen 500 Mg Tablet, 500-1,000 MG PO Q4H PRN for PAIN, (Reported) Aspirin 81 Mg Chew, 81 MG PO DAILY, (Reported) Atenolol 50 Mg Tablet, 50 MG PO BID, (Reported) Calcium Carbonate/Vitamin D3 1 Each Tablet, 1 EACH PO BID, (Reported) Cholecalciferol 5,000 Unit Tablet, 5,000 UNIT PO DAILY, (Reported) Diphenoxylate HCl/Atropine 1 Each Tablet, 1 TAB PO TID PRN for DIARRHEA, (Reported) Ergocalciferol 50,000 Unit Capsule, 50,000 UNIT PO 2X month, (Reported) [place]-3 Fatty Acids/Fish Oil 1 Each Capsule, 1 EACH PO BID, (Reported) Paroxetine HCl 20 Mg Tablet, 20 MG PO DAILY, (Reported) Warfarin Sodium 2.5 Mg Tablet, 7.5 MG PO SUN,E,,SAT, (Reported) take 1 1/2 of 5mg tab for total of 7.5mg Warfarin Sodium 5 Mg Tablet, 5 MG PO Mon, (Reported) Patient Home Medication List Home Medication List Reviewed: Yes (KENYON ACKERMAN MD) Review of Systems Review of Systems Constitutional: No fever, No malaise EENTM: No Blurred Vision, No Double Vision Respiratory: Denies Cough, Denies Shortness of Air Cardiovascular: Denies Chest Pain, Denies Palpitations Gastrointestinal: Abdominal Pain, Diarrhea, Nausea Genitourinary: Denies Burning, Denies Frequency (IVETT FELIPE STUDENT) Constitutional: see HPI EENTM: No Symptoms Reported Respiratory: No Symptoms Reported Cardiovascular: Denies Lightheadedness Gastrointestinal: Abdominal Pain, Diarrhea, Nausea; Denies Vomiting Genitourinary: See HPI; Denies Pain Musculoskeletal: no symptoms reported (KENYON ACKERMAN MD) All Other Systems Reviewed Negative Unless Noted: Yes (KENYON ACKERMAN MD) Past Guytpxp-Hfveoz-Awtaew Hx Past Med/Social Hx: Reviewed Nursing Past Med/Soc Hx (KENYON ACKERMAN MD) Patient Social History Alcohol Use: Denies Use Recreational Drug Use: No Smoking Status: Never a Smoker Former Smoker, Quit: Apr 28, 1974 2nd Hand Smoke Exposure: No Recent Foreign Travel: No Contact w/Someone Who Travel: No Recent Infectious Disease Expo: No Recent Hopitalizations: No Physical Abuse: No Sexual Abuse: No (IVETT FELIPE STUDENT) Immunizations Up To Date Date of Pneumonia Vaccine: Feb 14, 2008 Date of Influenza Vaccine: Dec 07, 2015 (IVETT FELIPE STUDENT) Seasonal Allergies Seasonal Allergies: No (IVETT FELIPE STUDENT) Past Medical History Surgeries: Yes (R THR, R ANKLE ORIF, CYST NECK, Lt TKR) Cardiac, CABG, Gallbladder, Joint Replacement, Orthopedic Respiratory: No Cardiac: Yes (SINUS NODE DYSFUCTION HX) Atrial Fibrillation, Coronary Artery Disease, High Cholesterol, Hypertension Neurological: No 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 Disorders: No 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 Sexually Transmitted Disease: No HIV/AIDS: No Bladder Infection Gastrointestinal: Yes Gastroesophageal Reflux, Irritable Bowel Musculoskeletal: Yes (FX R ANKLE, R Hip Replacement, Lt knee) Arthritis, Rheumatoid Arthritis, Fractures Endocrine: No Cataract Loss of Vision: Denies Hearing Impairment: Denies Cancer: No Psychosocial: Yes Depression Integumentary: No Blood Disorders: No Adverse Reaction/Blood Tranf: No (IVETT FELIPE STUDENT) Family Medical History Reviewed Nursing Family Hx (KENYON ACKERMAN MD) Cardiovascular disease G8 SISTER Completed stroke 19 MOTHER G8 SISTER FH: blood disorder 19 FATHER FH: lung cancer G8 SISTER FH: ovarian cancer G8 SISTER FHx: obesity G8 SISTER G8 SISTER G8 SISTER Hypertension 19 MOTHER Heart Disease, Cancer, Hypertension, Stroke (IVETT FELIPE STUDENT) Physical Exam Vital Signs Vital Signs - First Documented 11/10/18 08:31 Temp 36.5 Pulse 62 Resp 15 B/P (MAP) 134/66 (88) Pulse Ox 94 O2 Delivery Room Air (KENYON ACKERMAN MD) Vital Signs Capillary Refill : Less Than 3 Seconds (IVETT FELIPE STUDENT) Height/Weight/BMI Height: 5'4.00" Weight: 211lbs. 0.0oz. [id number]; 31.00 BMI Method:Stated General Appearance: WD/WN, no apparent distress Respiratory: chest non-tender, lungs clear, normal breath sounds Cardiovascular: regular rate, rhythm, no edema, systolic murmur Gastrointestinal: normal bowel sounds, soft, tenderness Back: normal inspection, no CVA tenderness, no vertebral tenderness Neurologic/Psychiatric: alert, normal mood/affect, oriented x 3 Skin: normal color, warm/dry (IVETT FELIPE MED STUDENT) Neck: full range of motion, supple Respiratory: lungs clear, normal breath sounds Cardiovascular: regular rate, rhythm, no edema Gastrointestinal: soft, tenderness (mild right upper quadrant) Extremities: non-tender, normal inspection Back: normal inspection, no CVA tenderness, no vertebral tenderness Neurologic/Psychiatric: alert, oriented x 3 Skin: normal color, warm/dry (KENYON ACKERMAN MD) Progress/Results/Core Measures Results/Orders Lab Results Laboratory Tests Test 11/10/18 08:40 11/10/18 09:59 Range/Units White Blood Count 5.1 4.3-11.0 10^3/uL Red Blood Count 4.77 4.35-5.85 10^6/uL Hemoglobin 14.2 11.5-16.0 G/DL Hematocrit 44 35-52 % Mean Corpuscular Volume 91 80-99 FL Mean Corpuscular Hemoglobin 30 25-34 PG Mean Corpuscular Hemoglobin Concent 33 32-36 G/DL Red Cell Distribution Width 15.7 H 10.0-14.5 % Platelet Count 125 L 130-400 10^3/uL Mean Platelet Volume 11.3 H 7.4-10.4 FL Neutrophils (%) (Auto) 67 42-75 % Lymphocytes (%) (Auto) 25 12-44 % Monocytes (%) (Auto) 7 0-12 % Eosinophils (%) (Auto) 0 0-10 % Basophils (%) (Auto) 0 0-10 % Neutrophils # (Auto) 3.4 1.8-7.8 X 10^3 Lymphocytes # (Auto) 1.3 1.0-4.0 X 10^3 Monocytes # (Auto) 0.4 0.0-1.0 X 10^3 Eosinophils # (Auto) 0.0 0.0-0.3 10^3/uL Basophils # (Auto) 0.0 0.0-0.1 10^3/uL Prothrombin Time 27.4 H 12.2-14.7 SEC INR Comment 2.4 H 0.8-1.4 Activated Partial Thromboplast Time 45 H 24-35 SEC Sodium Level 142 135-145 MMOL/L Potassium Level 4.2 3.6-5.0 MMOL/L Chloride Level 108 H 98-107 MMOL/L Carbon Dioxide Level 27 21-32 MMOL/L Anion Gap 7 5-14 MMOL/L Blood Urea Nitrogen 18 7-18 MG/DL Creatinine 0.77 0.60-1.30 MG/DL Estimat Glomerular Filtration Rate > 60 BUN/Creatinine Ratio 23 Glucose Level 92 70-105 MG/DL Calcium Level 9.1 8.5-10.1 MG/DL Corrected Calcium 9.0 8.5-10.1 MG/DL Total Bilirubin 0.7 0.1-1.0 MG/DL Aspartate Amino Transf (AST/SGOT) 364 H 5-34 U/L Alanine Aminotransferase (ALT/SGPT) 228 H 0-55 U/L Alkaline Phosphatase 86 40-136 U/L Total Protein 6.9 6.4-8.2 GM/DL Albumin 4.1 3.2-4.5 GM/DL Lipase 12 8-78 U/L Urine Color YELLOW Urine Clarity CLEAR Urine pH 6 5-9 Urine Specific [place] 1.010 L 1.016-1.022 Urine Protein NEGATIVE NEGATIVE Urine Glucose (UA) NEGATIVE NEGATIVE Urine Ketones NEGATIVE NEGATIVE Urine Nitrite NEGATIVE NEGATIVE Urine Bilirubin NEGATIVE NEGATIVE Urine Urobilinogen NORMAL NORMAL MG/DL Urine Leukocyte Esterase 1+ H NEGATIVE Urine RBC (Auto) 1+ H NEGATIVE Urine RBC 0-2 /HPF Urine WBC 2-5 /HPF Urine Squamous Epithelial Cells 5-10 /HPF Urine Renal Epithelial Cells 0-2 /HPF Urine Crystals NONE /LPF Urine Bacteria TRACE /HPF Urine Casts NONE /LPF Urine Mucus NEGATIVE /LPF Urine Culture Indicated YES (KENYON ACKERMAN MD) My Orders Orders - KENYON ACKERMAN MD Cbc With Automated Diff (11/10/18 08:55) Comprehensive Metabolic Panel (11/10/18 08:55) Lipase (11/10/18 08:55) Ua Culture If Indicated (11/10/18 08:55) Ed Iv/Invasive Line Start (11/10/18 08:55) Ns Iv 500 Ml (Sodium Chloride 0.9%) (11/10/18 08:55) Protime With Inr (11/10/18 09:41) Partial Thromboplastin Time (11/10/18 09:41) Urine Culture (11/10/18 09:59) (KENYON ACKERMAN MD) Medications Given in ED Current Medications Medications Dose Ordered Sig/Caryn Route Start Time Stop Time Status Last Admin Dose Admin Sodium Chloride 500 ml @ 0 mls/hr Q0M ONCE IV 11/10/18 08:55 11/10/18 08:57 DC 11/10/18 09:02 500 MLS/HR (KENYON ACKERMAN MD) Vital Signs/I&O 11/10/18 08:31 Temp 36.5 Pulse 62 Resp 15 B/P (MAP) 134/66 (88) Pulse Ox 94 O2 Delivery Room Air (KENYON ACKERMAN MD) Blood Pressure Mean: 88 Progress Progress Note : Time: 09:05 Progress Note The patient is resting comfortably in the exam room. She will be administered IV fluids. Initial evaluation will consist of UA, CBC, CMP and lipase. (IVETT FELIPE MED STUDENT) Progress Note : Progress Note I have seen and evaluated the patient and agree with above except as indicated. I have directed the plan of care. IV, labs, normal saline 500 mL bolus, UA ordered. Monitor patient. 1110: Overall no significant findings. Still question urinary tract infection. I do believe the Bactrim as part of the problem with stomach pain so we will switch that to Keflex for 3 more days. I will send a prescription out to [facility]. I have asked her to follow back up with her doctor on Monday or Monday for recheck and further evaluation. We did discuss the multiple things that she is on that may cause liver dysfunction including her vitamins and Tylenol dosing and she will try to decrease her Tylenol. She will recheck her vitamins. She can discuss this with Dr. Hill and I will send a copy of the chart over to him. Discharged home with return precautions. Patient verbalize understanding instructions and agreement with plan. (KENYON ACKERMAN MD) Departure Impression Primary Impression: Epigastric abdominal pain Additional Impression: Urinary tract infection without hematuria Qualified Codes: N30.00 - Acute cystitis without hematuria Disposition: 01 HOME, SELF-CARE Condition: Improved Departure-Patient Inst. Decision time for Depature: 11:11 (KENYON ACKERMAN MD) Referrals: GUMARO HILL MD (PCP/Family) Primary Care Physician Patient Instructions: Acute Abdomen (Belly Pain), Adult (DC), Urinary Tract Infection, Adult (DC) Add. Discharge Instructions: All discharge instructions reviewed with patient and/or family. Voiced understanding. Stop the Bactrim (trimethoprim sulfamethoxazole). You'll start new antibiotic as prescribed. Follow-up with your doctor on Monday or Monday for recheck and further evaluation. You should limit your Tylenol/acetaminophen to no greater than 2000 mg (4 tablets) daily and discuss this further with your doctor. Return for worsening, fever, vomiting, weakness, breathing problems or other concerns as needed. IVETT FELIPE MED STUDENT Nov 10, 2018 09:04 KENYON ACKERMAN MD Nov 10, 2018 10:29
[2018-11-10 09:17] LABS: ALANINE AMINOTRANSFERASE 228 U/L (0-55); ALBUMIN 4.1 GM/DL (3.2-4.5); ALKALINE PHOSPHATASE 86 U/L (40-136); BILIRUBIN,TOTAL 0.7 MG/DL (0.1-1.0); BUN/CREATININE RATIO 23; CALCIUM 9.1 MG/DL (8.5-10.1); CARBON DIOXIDE 27 MMOL/L (21-32); CHLORIDE 108 MMOL/L (98-107); CREATININE SERUM 0.77 MG/DL (0.60-1.30); GFR ESTIMATED > 60; GLUCOSE 92 MG/DL (70-105); LIPASE 12 U/L (8-78); POTASSIUM 4.2 MMOL/L (3.6-5.0); SODIUM 142 MMOL/L (135-145); TOTAL PROTEIN 6.9 GM/DL (6.4-8.2)
[2018-11-10 09:53] LABS: INR 2.4 (0.8-1.4); PROTHROMBIN TIME PATIENT 27.4 SEC (12.2-14.7)
[2018-11-10 10:11] LABS: BILIRUBIN,URINE NEGATIVE (NEGATIVE); CLARITY,URINE CLEAR; COLOR,URINE YELLOW; GLUCOSE, URINE (UA) NEGATIVE (NEGATIVE); KETONES,URINE NEGATIVE (NEGATIVE); LEUKOCYTE ESTERASE ,URINE 1+ (NEGATIVE); NITRITE,URINE NEGATIVE (NEGATIVE); PH,URINE 6 (5-9); PROTEIN,URINE NEGATIVE (NEGATIVE); UROBILINOGEN,URINE NORMAL (NORMAL)
[2018-11-10 10:19] LABS: BACTERIA,URINE TRACE /HPF; RBC,URINE 0-2 /HPF; RENAL EPITHELIAL CELLS,URINE 0-2 /HPF
[2018-11-10 11:18] VITALS: BP 146/72
[2018-11-10] MEDS ORDERED: CEPH500T PO (11:19)
== END 2018-11-10 11:25 | disposition home or self-care (01) ==
LOC: EDUNIT# 08:31 → ER 08:32
DX: R10.13 Epigastric pain (principal); N39.0 Urinary tract infection, site not specified; I10 Essential (primary) hypertension; E78.00 Pure hypercholesterolemia, unspecified; I25.10 Atherosclerotic heart disease of native coronary artery without angina pectoris; I48.91 Unspecified atrial fibrillation; F32.9 Major depressive disorder, single episode, unspecified; K21.9 Gastro-esophageal reflux disease without esophagitis; K58.9 Irritable bowel syndrome, unspecified; M06.9 Rheumatoid arthritis, unspecified; Z96.641 Presence of right artificial hip joint; Z96.652 Presence of left artificial knee joint; Z79.01 Long term (current) use of anticoagulants; Z79.82 Long term (current) use of aspirin; Z87.891 Personal history of nicotine dependence; Z95.1 Presence of aortocoronary bypass graft; Z82.49 Family history of ischemic heart disease and other diseases of the circulatory system; Z80.1 Family history of malignant neoplasm of trachea, bronchus and lung; Z80.41 Family history of malignant neoplasm of ovary
CPT/HCPCS: 36415; 80053; 81000; 83690; 85025; 85610; 85730; 87088; 96360

== ENCOUNTER 2019-01-20 18:00 | Observation (INO) | payer MEDICARE ==
[~2019-01-20] VITALS: Ht 162 cm; Wt 95.3 kg
[~2019-01-20 18:00] MED LIST changes: +CEPH500T PO
[2019-01-20] MEDS ORDERED: FLUO10CA30 PO (18:14)
[2019-01-20] MEDS ORDERED: ROSU10TA28 (18:14)
[2019-01-20] MEDS ORDERED: ONDANSETRON 4 MG/2 ML (SDV) Z0FRAN ONE (18:35)
[2019-01-20] MEDS ORDERED: ONDANSETRON 4 MG/2 ML (SDV) Z0FRAN IVP ONE (18:45)
--- NOTE | 2019-01-20 18:48 | ED Fall/Injury ---
General Chief Complaint: Trauma-Non Activation Stated Complaint: FALL Nursing Triage Note: fall, hematoma Source: patient Exam Limitations: no limitations History of Present Illness Date Seen by Provider: Jan 20, 2019 Time Seen by Provider: 18:27 Initial Comments Here with report of fall at home. Apparently she had taken out the trash and was walking back and tripped on some gravel. She fell to the ground onto her knees and on her head. She has multiple abrasions to the knees but has large hematoma to the left forehead. Patient is on Coumadin. She did press her life assist button and EMS responded. No report of loss of consciousness. She has had nausea and vomiting since. She is also hypertensive which is not normal for her. States she had an episode of diarrhea prior to the event and she states that usually from her diverticulitis and she had just eaten Occurred: just prior to arrival Severity: moderate Injuries/Pain Location: head, lower extremity Context: tripped Loss of Consciousness: no loss of consciousness Associated Symptoms (Fall): No Abdominal Pain, No Chest Pain, No Confusion; Headache, Nausea/Vomiting; No Shortness of Air, No Slurred Speech Allergies and Home Medications Allergies Coded Allergies: No Known Drug Allergies (Verified , 06/04/07) Home Medications Acetaminophen 500 Mg Tablet, 500-1,000 MG PO Q4H PRN for PAIN, (Reported) Aspirin 81 Mg Chew, 81 MG PO DAILY, (Reported) Atenolol 50 Mg Tablet, 50 MG PO BID, (Reported) Calcium Carbonate/Vitamin D3 1 Each Tablet, 1 EACH PO BID, (Reported) Cholecalciferol 5,000 Unit Tablet, 5,000 UNIT PO DAILY, (Reported) [place]-3 Fatty Acids/Fish Oil 1 Each Capsule, 1 EACH PO BID, (Reported) Warfarin Sodium 2.5 Mg Tablet, 7.5 MG PO SUN,E,TH,SAT, (Reported) take 1 1/2 of 5mg tab for total of 7.5mg Warfarin Sodium 5 Mg Tablet, 5 MG PO Mon, (Reported) Patient Home Medication List Home Medication List Reviewed: Yes Review of Systems Review of Systems Constitutional: see HPI; No chills, No fever Eyes: Other (swelling involving the forehead on the left and left upper lid) Ears, Nose, Mouth, Throat: denies ear pain; nose pain; denies epistaxis Respiratory: No cough, No short of breath Cardiovascular: no symptoms reported Gastrointestinal: No abdominal pain; diarrhea, nausea, vomiting Genitourinary: no symptoms reported Musculoskeletal: joint pain; No muscle pain Skin: change in color, lesions Psychiatric/Neurological: Headache; Denies Weakness All Other Systems Reviewed Negative Unless Noted: Yes Past Qzgpnjq-Wdjtcy-Lpbgdz Hx Past Med/Social Hx: Reviewed Nursing Past Med/Soc Hx Patient Social History Alcohol Use: Denies Use Recreational Drug Use: No Smoking Status: Former Smoker Former Smoker, Quit: Apr 28, 1974 2nd Hand Smoke Exposure: No Recent Foreign Travel: No Contact w/Someone Who Travel: No Recent Infectious Disease Expo: No Recent Hopitalizations: No Physical Abuse: No Sexual Abuse: No Mistreated: No Fear: No Immunizations Up To Date Date of Pneumonia Vaccine: Feb 14, 2008 Date of Influenza Vaccine: Dec 07, 2015 Seasonal Allergies Seasonal Allergies: No Past Medical History Surgeries: Yes (R THR, R ANKLE ORIF, CYST NECK, Lt TKR) Cardiac, CABG, Gallbladder, Joint Replacement, Orthopedic Respiratory: No Cardiac: Yes (SINUS NODE DYSFUCTION HX) Atrial Fibrillation, Coronary Artery Disease, High Cholesterol, Hypertension Neurological: No : No 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 Disorders: No 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 Sexually Transmitted Disease: No HIV/AIDS: No Genitourinary: Yes Bladder Infection Gastrointestinal: Yes Gastroesophageal Reflux, Irritable Bowel Musculoskeletal: Yes (FX R ANKLE, R Hip Replacement, Lt knee) Arthritis, Rheumatoid Arthritis, Fractures Endocrine: No HEENT: Yes Cataract Loss of Vision: Denies Hearing Impairment: Denies Cancer: No Psychosocial: Yes Depression Integumentary: No Blood Disorders: No Adverse Reaction/Blood Tranf: No Family Medical History Reviewed Nursing Family Hx Cardiovascular disease G8 SISTER Completed stroke 19 MOTHER G8 SISTER FH: blood disorder 19 FATHER FH: lung cancer G8 SISTER FH: ovarian cancer G8 SISTER FHx: obesity G8 SISTER G8 SISTER G8 SISTER Hypertension 19 MOTHER Heart Disease, Cancer, Hypertension, Stroke Physical Exam Vital Signs Vital Signs - First Documented 01/20/19 18:00 Temp 36.7 Pulse 56 Resp 16 B/P (MAP) 213/94 (133) Pulse Ox 95 O2 Delivery Room Air Capillary Refill : Less Than 3 Seconds Height, Weight, BMI Height: 5'4.00" Weight: 211lbs. 0.0oz. [id number]; 32.00 BMI Method:Stated General Appearance: WD/WN, no apparent distress HEENT: PERRL/EOMI, TMs normal, pharynx normal, other (large hematoma encompassing the left side of the for head and left upper lid. Tender to the bridge of the nose especially on the left side. There is swelling there as well. No epistaxis.) Neck: other (remains in c-collar) Cardiovascular: regular rate, rhythm, no murmur Respiratory: lungs clear, normal breath sounds Gastrointestinal: non tender, soft Back: normal inspection, no CVA tenderness, no vertebral tenderness Extremities: non-tender, normal inspection Neurologic/Psychiatric: alert, oriented x 3 Skin: warm/dry, ecchymosis [place] Coma Score Best Eye Response: (4) Open Spontaneously Best Verbal Response: (5) Oriented Best Motor Response: (6) Obeys Commands Progress/Results/Core Measures Results/Orders My Orders Orders - KENYON ACKERMAN MD Cbc With Automated Diff (01/20/19 18:23) Comprehensive Metabolic Panel (01/20/19 18:23) Protime With Inr (01/20/19 18:23) Partial Thromboplastin Time (01/20/19 18:23) Ekg Tracing (01/20/19 18:23) Ct Head/Face/Cervical Wo (01/20/19 18:35) Ondansetron Injection (Zofran Injectio (01/20/19 18:45) Ondansetron Injection (Zofran Injectio (01/20/19 18:35) Fentanyl Injection (Sublimaze Injection (01/20/19 18:54) Hydralazine Injection (Apresoline Inject (01/20/19 19:45) Medications Given in ED Current Medications Medications Dose Ordered Sig/Caryn Route Start Time Stop Time Status Last Admin Dose Admin Hydralazine HCl 10 mg ONCE ONCE IV 01/20/19 19:45 01/20/19 19:46 DC 01/20/19 19:48 10 MG Ondansetron HCl 8 mg ONCE ONCE IVP 01/20/19 18:45 01/20/19 18:46 DC 01/20/19 18:40 8 MG Vital Signs/I&O 01/20/19 18:00 Temp 36.7 Pulse 56 Resp 16 B/P (MAP) 213/94 (133) Pulse Ox 95 O2 Delivery Room Air Blood Pressure Mean: 133 POS Progress Progress Note : Progress Note Seen and evaluated. CT head, face and neck ordered. Labs including PT/INR ordered. Patient was quite hypertensive when she got here and EKG was done. Zofran 8 mg IV ordered. Monitor patient. 1909: Labs reviewed. Unfortunately, there was a registration issue initially and her labs were signed to a different account. I was able to print off of the labs and those are resulted below. CBC: WBC 3.8, hemoglobin 13.5, platelets 120. CMP: Sodium 143, potassium 3.5, chloride 106, BUN 20, creatinine 0.7, glucose 1:30 with essentially normal LFTs. PT 20.6 and INR 2.6. Patient had episodes of vomiting on return from CT scan. Fentanyl 25 g IV ordered. Monitor patient. 1934: Hydralazine 10 mg IV ordered for persistent hypertension. She has had another episode of vomiting despite 8 mg of Zofran and 25 g of fentanyl. She states she is actually feeling better. C-collar cleared as she has negative CT scan of the neck. She is much more comfortable after that was removed. I did discuss the case with Dr. Greenberg, she will need admission due to the persistent vomiting after head injury. At this point, we will monitor for improvement in her blood pressure. If this improves then surgical floor admission indicated. If we cannot get that controlled, then ICU will be considered. Monitor patient. 2042: Blood pressure is well controlled now after hydralazine. We will admit to fourth floor surgical. I did discuss the case with Dr. Engle and he will see the patient in consult as well. Admit, observation status. Patient agrees with plan. Initial ECG Impression Date: Jan 20, 2019 Initial ECG Impression Time: 18:07 Initial ECG Rate: 51 Initial ECG Rhythm: S.Tach Initial ECG Comparisson: Unchanged Comment Sinus rhythm with left ventricular hypertrophy. No evidence of ST elevation HI. Leftward axis. Similar to previous of 2014. Interpreted by me. Diagnostic Imaging Diagonstic Imaging: CT Plain Films/CT/US/NM/MRI: facial bones, c-spine, head Comments [place] POS NAME: SEDA LOYAALLEN [facility] REC#: [id number] PT STATUS: REG ER : 1935 PHYSICIAN: KENYON ACKERMAN MD ADMIT DATE: 01/20/19/ER Draft POSDate of Exam:01/20/19 CT HEAD/FACE/CERVICAL WO PROCEDURE: CT head, face, and cervical spine without contrast. TECHNIQUE: Multiple contiguous axial images were obtained through the head, neck, and facial bones without the use of intravenous contrast. Sagittal and coronal reformations through the cervical spine and facial bones were also performed. Auto Exposure Controls were utilized during the CT exam to meet ALARA standards for radiation dose reduction. INDICATION: Fall on blood thinners. COMPARISON: CT head and face from 07/26/2016. FINDINGS: CT HEAD: No intracranial hyperdense hemorrhage or space-occupying mass. No hydrocephalus or midline shift. [place]-white matter differentiation is well-preserved. No acute skull fracture. Large left frontal/supraorbital subcutaneous hematoma. Paranasal sinuses and mastoid air cells are clear. CT face: There are acute nondepressed fractures of bilateral nasal bones. No fracture frontal sinus of the maxilla or the osseous nasal septum. The anterior nasal spine remains intact. No fracture of the orbits. Zygomatic arches are intact. Frontal sinus mendez are also intact. Pterygoid plates are intact. Globes are symmetric without rupture. No retrobulbar hematoma. Bilateral cataract surgery. No fracture of the mandible. CT cervical spine: No acute fracture or traumatic malalignment in the cervical spine. Diffuse degenerative disc disease throughout the cervical spine. There are no areas of high-grade spinal stenosis. Multilevel mild neural foraminal narrowing due to facet and uncovertebral joint hypertrophy. Lung apices are clear. No cervical lymphadenopathy. IMPRESSION: 1. No acute intracranial hemorrhage or skull fracture. Large left frontal/supraorbital scalp hematoma. 2. Acute fracture of the bilateral nasal bones are nondisplaced/depressed. No additional fracture in the mid face or mandible. 3. No fracture or malalignment in the cervical spine. Dictated on workstation # [id number] Dict: 01/20/191857 Trans: 01/20/191905 OLEG [id number] Interpreted by: PIETER MADSEN MD Electronically signed by: Departure Communication (Admissions) Time/Spoke to Admitting Phy: 19:32 Time/Spoke to Consulting Phy: 20:43 Impression Primary Impression: Head injury Qualified Codes: S09.90XA - Unspecified injury of head, initial encounter Additional Impressions: Uncontrolled hypertension Nausea and vomiting Qualified Codes: R11.2 - Nausea with vomiting, unspecified Disposition: ADMITTED INPATIENT Condition: Stable Admissions Decision to Admit Reason: Admit from ER (Trauma) Decision to Admit/Date: Jan 20, 2019 Time/Decision to Admit Time: 19:32 Departure-Patient Inst. Referrals: GUMARO HILL MD (PCP/Family) Primary Care Physician KENYON ACKERMAN MD Jan 20, 2019 18:48 POS
[2019-01-20] MEDS ORDERED: fentaNYL INJECTION 100 MCG/2 ML AMP IVP STA (18:54)
--- NOTE | 2019-01-20 19:00 | NUR ---
pt reports diarrhea, declined to be cleaned at this time d/t nausea. erp informed new orders recieved
--- NOTE | 2019-01-20 19:08 | Diagnostic Imaging Report ---
PROCEDURE: CT head, face, and cervical spine without contrast. TECHNIQUE: Multiple contiguous axial images were obtained through the head, neck, and facial bones without the use of intravenous contrast. Sagittal and coronal reformations through the cervical spine and facial bones were also performed. Auto Exposure Controls were utilized during the CT exam to meet ALARA standards for radiation dose reduction. INDICATION: Fall on blood thinners. COMPARISON: CT head and face from 07/26/2016. FINDINGS: CT HEAD: No intracranial hyperdense hemorrhage or space-occupying mass. No hydrocephalus or midline shift. Hadley-white matter differentiation is well-preserved. No acute skull fracture. Large left frontal/supraorbital subcutaneous hematoma. Paranasal sinuses and mastoid air cells are clear. CT face: There are acute nondepressed fractures of bilateral nasal bones. No fracture frontal sinus of the maxilla or the osseous nasal septum. The anterior nasal spine remains intact. No fracture of the orbits. Zygomatic arches are intact. Frontal sinus mendez are also intact. Pterygoid plates are intact. Globes are symmetric without rupture. No retrobulbar hematoma. Bilateral cataract surgery. No fracture of the mandible. CT cervical spine: No acute fracture or traumatic malalignment in the cervical spine. Diffuse degenerative disc disease throughout the cervical spine. There are no areas of high-grade spinal stenosis. Multilevel mild neural foraminal narrowing due to facet and uncovertebral joint hypertrophy. Lung apices are clear. No cervical lymphadenopathy. IMPRESSION: 1. No acute intracranial hemorrhage or skull fracture. Large left frontal/supraorbital scalp hematoma. 2. Acute fracture of the bilateral nasal bones are nondisplaced/depressed. No additional fracture in the mid face or mandible. 3. No fracture or malalignment in the cervical spine. Dictated by: Dictated on workstation # [id number]
[2019-01-20] MEDS ORDERED: hydrALAZINE (APESOLINE) 20 MG/ML VIAL IV ONE (19:45)
--- NOTE | 2019-01-20 19:45 | NUR ---
pt declined to have linens changed.
--- NOTE | 2019-01-20 20:15 | NUR ---
admission plan discussed, pt declined pt gown at this time.
--- NOTE | 2019-01-20 21:35 | NUR ---
SHAWN LOYA admitted to room 411-1, with an admitting diagnosis of HEAD INJURY, HTN, AND N/V on 01/20/19 from [facility], accompanied by SON AND STAFF.SHAWN LOYA introduced to surroundings, call light, bed controls, phone, TV, temperature control, lights, meal times, smoking policy, visitor policy, side rail policy, bathrooms and showers. Patient Rights given to patient in the handbook. SHAWN LOYA verbalizes understanding that [facility] [place] is not responsible for the loss or damage to any personal effects or valuables that are kept in the patients posession during their hospitalization.
[2019-01-20] MEDS ORDERED: NS IV 1000 ML 1,000 ML ONE (21:56)
[2019-01-20] MEDS ORDERED: hydrALAZINE (APESOLINE) 20 MG/ML VIAL IV PRN (22:15)
[2019-01-20] MEDS ORDERED: fentaNYL INJECTION 100 MCG/2 ML AMP IV PRN (22:15)
[2019-01-20] MEDS ORDERED: ONDANSETRON 4 MG/2 ML (SDV) Z0FRAN IV PRN (22:15)
[2019-01-20] MEDS ORDERED: ACETAMINOPHEN 500 MG TAB (TYLENOL) PO PRN (22:15)
[2019-01-20] MEDS ORDERED: NS IV 1000 ML 1,000 ML IV SCH (22:15)
[2019-01-20] MEDS ORDERED: CATHETER FLUSH 10 ML SYR IV PRN (22:15)
[2019-01-20 22:28] VITALS: BP 122/58
[2019-01-21] VITALS: BP 161/76
[2019-01-21 01:02] LABS: BASOPHILS % (AUTO) 1 % (0-10); EOSINOPHILS # (AUTO) 0.1 10^3/uL (0.0-0.3); EOSINOPHILS % (AUTO) 1 % (0-10); HEMATOCRIT 41 % (35-52); HEMOGLOBIN 13.5 G/DL (11.5-16.0); LYMPHOCYTES # (AUTO) 2.1 X 10^3 (1.0-4.0); LYMPHOCYTES % (AUTO) 52 % (12-44); MEAN CORPUSCULAR HEMOGLOBIN 30 PG (25-34); MEAN CORPUSCULAR HGB CONC 33 G/DL (32-36); MEAN CORPUSCULAR VOLUME 92 FL (80-99); MEAN PLATELET VOLUME 11.5 FL (7.4-10.4); MONOCYTES # (AUTO) 0.4 X 10^3 (0.0-1.0); MONOCYTES % (AUTO) 10 % (0-12); NEUTROPHILS # (AUTO) 1.5 X 10^3 (1.8-7.8); NEUTROPHILS % (AUTO) 37 % (42-75); PLATELET COUNT 124 10^3/uL (130-400); RED CELL DISTRIBUTION WIDTH 15.5 % (10.0-14.5)
[2019-01-21 01:14] LABS: INR 2.6 (0.8-1.4); PROTHROMBIN TIME PATIENT 28.7 SEC (12.2-14.7)
[2019-01-21 01:16] LABS: ALANINE AMINOTRANSFERASE 21 U/L (0-55); ALKALINE PHOSPHATASE 40 U/L (40-136); BILIRUBIN,TOTAL 0.5 MG/DL (0.1-1.0); BUN/CREATININE RATIO 26; CALCIUM 9.3 MG/DL (8.5-10.1); CARBON DIOXIDE 23 MMOL/L (21-32); CHLORIDE 107 MMOL/L (98-107); CREATININE SERUM 0.78 MG/DL (0.60-1.30); GFR ESTIMATED > 60; GLUCOSE 126 MG/DL (70-105); POTASSIUM 3.6 MMOL/L (3.6-5.0); SODIUM 143 MMOL/L (135-145); TOTAL PROTEIN 6.4 GM/DL (6.4-8.2)
[2019-01-21 04:00] VITALS: BP 172/77
[2019-01-21 05:43] LABS: BASOPHILS % (AUTO) 0 % (0-10); EOSINOPHILS % (AUTO) 0 % (0-10); HEMATOCRIT 39 % (35-52); HEMOGLOBIN 12.5 G/DL (11.5-16.0); LYMPHOCYTES # (AUTO) 1.2 X 10^3 (1.0-4.0); LYMPHOCYTES % (AUTO) 23 % (12-44); MEAN CORPUSCULAR HEMOGLOBIN 30 PG (25-34); MEAN CORPUSCULAR HGB CONC 32 G/DL (32-36); MEAN CORPUSCULAR VOLUME 93 FL (80-99); MEAN PLATELET VOLUME 11.4 FL (7.4-10.4); MONOCYTES # (AUTO) 0.5 X 10^3 (0.0-1.0); MONOCYTES % (AUTO) 10 % (0-12); NEUTROPHILS # (AUTO) 3.6 X 10^3 (1.8-7.8); NEUTROPHILS % (AUTO) 67 % (42-75); PLATELET COUNT 116 10^3/uL (130-400); WHITE BLOOD COUNT 5.4 10^3/uL (4.3-11.0)
[2019-01-21 06:00] LABS: ALANINE AMINOTRANSFERASE 17 U/L (0-55); ALBUMIN 3.6 GM/DL (3.2-4.5); ALKALINE PHOSPHATASE 33 U/L (40-136); BILIRUBIN,TOTAL 0.3 MG/DL (0.1-1.0); BUN/CREATININE RATIO 27; CALCIUM 8.8 MG/DL (8.5-10.1); CARBON DIOXIDE 24 MMOL/L (21-32); CHLORIDE 109 MMOL/L (98-107); CREATININE SERUM 0.67 MG/DL (0.60-1.30); GFR ESTIMATED > 60; GLUCOSE 118 MG/DL (70-105); POTASSIUM 3.9 MMOL/L (3.6-5.0); SODIUM 143 MMOL/L (135-145); TOTAL PROTEIN 5.7 GM/DL (6.4-8.2)
[2019-01-21] MEDS: CATHETER FLUSH 10 ML SYR IV SCH ×2 (06:22→14:25)
[2019-01-21 08:00] VITALS: BP 156/73
[2019-01-21] MEDS ORDERED: ASPI-999 PO (11:14)
[2019-01-21] MEDS ORDERED: ACET-93 PO (11:14)
[2019-01-21] MEDS ORDERED: ATEN25TA PO (11:14)
[2019-01-21] MEDS ORDERED: CALC600T12 PO (11:14)
[2019-01-21] MEDS ORDERED: OMEG-14 PO (11:19)
[2019-01-21] MEDS ORDERED: CHOL10008 PO (11:19)
[2019-01-21] MEDS ORDERED: WARF-48 PO ×2 (11:19)
[2019-01-21] MEDS ORDERED: CYAN250010 PO (11:20)
[2019-01-21] MEDS ORDERED: VIT1CAPS44 PO (11:20)
[2019-01-21] MEDS ORDERED: DIPH1TAB PO (11:20)
[2019-01-21] MEDS ORDERED: CHOL500049 PO (11:25)
[2019-01-21 12:52] VITALS: BP 181/74
--- NOTE | 2019-01-21 13:54 | NUR ---
SPOKE WITH PT WELL CALLING [facility]KI AND [facility] AND GOING THRU THE EXT MED HISTORY TO COMPLETE THE MED REC. PT HAD A MED LIST WHICH HAD DUPLICATE MEDS AND DISCONTINUED MEDS. I WENT THRU THAT TO THE BEST OF MY ABILITY ALONG WITH GETTING CURRENT DATES FROM THE PHARMACIES. THE FOLLOWING ARE FILL DATES: 12-10-2018 LOMOTIL #90 12-10-2018 VITAMIN D 50,000 ALL OTHER MEDS SHOULD BE LISTED ON THE EXT MED HISTORY. ROSUVASTATIN WAS SHOWN IN THE EXT MED HISTORY- BUT THE PT NEVER PICKED IT UP DUE TO COST. OTC MEDS: APAP ASA CALCIUM VIT D VIT B12 FISH OIL PRESERVISION Addendum: 01/21/19 at 1401 by ALEXIA BARAKAT [facility] THIS PT DID NOT HAVE A MED LIST- THIS WAS MY ERROR. EVERYTHING ELSE ON THE NOTE IS CORRECT
--- NOTE | 2019-01-21 15:04 | Consultation - Hospitalist ---
HPI History of Present Illness: HPI/Chief Complaint Jessi Alanis is an 83-year-old female with past medical history of hypertension, coronary artery disease, paroxysmal atrial fibrillation, hyperlipidemia, who presented following a fall in her driveway. She states that she had been going on take her trash to the curb and on the way back she felt l krystina she was going to have diarrhea and was hurrying and tripped and fell face first into the asphalt. She was very surprised range elected herself milligrams morning. She has extensive bruising of her face. She denies any fevers, chills, chest pain, shortness of breath, cough, abdominal pain, nausea, vomiting, dysuria. She had one episode of diarrhea last night but has not had any since that time. This is been a chronic issue. Source: patient Exam Limitations: no limitations Date Seen 01/21/19 Attending Physician Maurisio Greenberg Rick D MD Referring Physician Date of Admission Jan 20, 2019 at 20:44 Home Medications & Allergies Home Medications Reviewed patient Home Medication Reconciliation performed by pharmacy medication reconciliations donor services technician and/or nursing. Patients Allergies have been reviewed. Allergies Allergies Coded Allergies No Known Drug Allergies (Verified06/04/07) Past Bfcbege-Alrheg-Nrepen Hx Past Med/Social Hx: Reviewed Nursing Past Med/Soc Hx Patient Social History Alcohol Use: Denies Use Recreational Drug Use: No Smoking Status: Former Smoker Former Smoker, Quit: Apr 28, 1974 2nd Hand Smoke Exposure: No Recent Foreign Travel: No Contact w/other who traveled: No Recent Hopitalizations: No Recent Infectious Disease Expo: No Immunizations Up To Date Date of Pneumonia Vaccine: Jan 20, 2017 Date of Influenza Vaccine: Nov 28, 2018 Seasonal Allergies Seasonal Allergies: No Past Medical History Surgeries: Cardiac, CABG, Gallbladder, Joint Replacement, Orthopedic Cardiac: Atrial Fibrillation, Coronary Artery Disease, High Cholesterol, Hypertension : No 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: No Sexually Transmitted Disease: No HIV/AIDS: No Female 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 Disorders: Denies Menopausal Genitourinary: Bladder Infection Gastrointestinal: Gastroesophageal Reflux, Irritable Bowel Musculoskeletal: Arthritis, Rheumatoid Arthritis, Fractures HEENT: Cataract Loss of Vision: Denies Hearing Impairment: Denies Psychosocial: Depression History of Blood Disorders: No Adverse Reaction to Blood Sinha: No Family History Reviewed Nursing Family Hx Cardiovascular disease G8 SISTER Completed stroke 19 MOTHER G8 SISTER FH: blood disorder 19 FATHER FH: lung cancer G8 SISTER FH: ovarian cancer G8 SISTER FHx: obesity G8 SISTER G8 SISTER G8 SISTER Hypertension 19 MOTHER Heart Disease, Cancer, Hypertension, Stroke Review of Systems Constitutional: no symptoms reported EENTM: eye pain, nose pain Respiratory: no symptoms reported Cardiovascular: no symptoms reported Gastrointestinal: no symptoms reported Genitourinary: no symptoms reported Musculoskeletal: no symptoms reported Skin: no symptoms reported Psychiatric/Neurological: No Symptoms Reported Physical Exam Physical Exam Vital Signs Vital Signs - First Documented 01/20/19 01/20/19 18:00 20:55 Temp 36.7 Pulse 56 Resp 16 B/P (MAP) 213/94 (133) Pulse Ox 95 O2 Delivery Room Air O2 Flow Rate 2.00 Capillary Refill : Less Than 3 SecondsLess Than 3 Seconds Height, Weight, BMI Height: 5'4.00" Weight: 211lbs. 0.0oz. 95.998748dw; 36.31 BMI Method:Stated General Appearance: No Apparent Distress, WD/WN HEENT: Pharynx Normal, Other (left eye swollen shut, raccoon eyes) Neck: Normal Inspection, Supple Respiratory: Lungs Clear, Normal Breath Sounds, No Respiratory Distress Cardiovascular: Regular Rate, Rhythm, No Edema, No Murmur Gastrointestinal: Normal Bowel Sounds, Non Tender, Soft Extremity: Normal Inspection, Non Tender, No Pedal Edema Neurologic/Psychiatric: Alert, Oriented x3, No Motor/Sensory Deficits, Normal Mood/Affect Skin: Warm/Dry, Ecchymosis Lymphatic: No Adenopathy Results Results/Procedures Labs Laboratory Tests 01/20/19 18:05 01/21/19 04:31 01/21/19 04:35 Patient resulted labs reviewed. Imaging: Reviewed Imaging Report Assessment/Plan Assessment and Plan Assess & Plan/Chief Complaint Fall from ground level Nasal fracture -Admitted to surgery -No surgical intervention planned HTN -Continue Atenolol Paroxysmal atrial fibrillation -Continue Atenolol and Warfarin CAD -Continue ASA DVT Prophylaxis: already receiving therapeutic anticoagulation Diagnosis/Problems Diagnosis/Problems (1) Closed fracture nasal bone Status: Acute Qualifiers: Encounter type: initial encounter Qualified Codes: S02.2XXA - Fracture of nasal bones, initial encounter for closed fracture (2) Fall from ground level Status: Acute (3) HTN (hypertension) Status: Chronic Qualifiers: Hypertension type: essential hypertension Qualified Codes: I10 - Essential (primary) hypertension (4) CAD (coronary artery disease) Status: Chronic (5) PAF (paroxysmal atrial fibrillation) Status: Chronic Clinical Quality Measures DVT/VTE Risk/Contraindication: Risk Factor Score Per Nursin RFS Level Per Nursing on Admit: 3=High SCARLET PLASCENCIA MD Jan 21, 2019 15:04 POS
--- NOTE | 2019-01-21 15:40 | Discharge Inst-Surgical ---
Discharge Inst-Surgical Depart Medication/Instructions New, Converted or Re-Newed RX: Other (No new meds needed, take home meds) Patient Instructions Follow up Appt: Make appointment with primary care, can follow up with me as needed. [phone] Instructions: No strenuous activity. May shower in 24 hours, no tub bath or soaking. Use incentive spirometer at home as directed. No Smoking Skin/Wound Care: May remove bandages in am. You need to leave the Dermabond on incision it will fall off on it's own. Symptoms to Report: Appetite Changes, Extremity Discoloration, Numbness/Tingling, Swelling Increased, Bleeding Excessive, Eyesight Changes, Pain Increased, Urine Color Change, Constipation(Persistent), Fever over 101 degree F, Pain/Pressure in chest, Urinating Difficulty, Cough Up/Vomit Blood, Heart Beat Irreg/Pounding, Pain/Pressure in jaw, Cramps in feet or legs, Lightheadedness, Pain/Pressure in shoulder, Diarrhea(Persistent), Memory Changes Suddenly, Questions/Concerns, Weight gain consecutive days, Dizziness/Fainting, Nausea/Vomiting, Shortness of Breath, Weight gain over 2 pounds If questions or concerns contact your physician Or seek help at emergency department. Activity Driving Instructions: No Driving/Refer to Dr. Herrera Discharge Diet: No Restrictions Diet After 24 Hours: Clear Liquid if Nauseous If Any Problems/Questions/Issu: Contact Your Physician, Go to Emergency Room Skin/Wound Care Infection Signs and Symptoms: Increased Redness, Foul Odor of Wound, Increased Drainage, Skin Itchy or Has a Rash, Increased Swelling, Temperature Above 101 F Bathing Instructions: Shower Ice Pack: Ice On and Off Site JOSAFAT BERNABE DO Jan 21, 2019 15:40 POS
[2019-01-21 15:52] VITALS: BP 133/58
--- NOTE | 2019-01-21 16:37 | NUR ---
Pastoral care visit.
[2019-01-21 16:43] VITALS: BP 133/58
[2019-01-21] MEDS ORDERED: warFARin 7.5 MG (COUMADIN) TAB PO SCH (18:00)
[2019-01-21] MEDS ORDERED: warFARin 5 MG (COUMADIN) TAB PO SCH (18:00)
[2019-01-21] MEDS ORDERED: ATENOLOL 25 MG (TENORMIN) TAB PO SCH (21:00)
[2019-01-22] MEDS ORDERED: ASPIRIN 81 MG CHEW (CHILDREN'S ASA) PO SCH (09:00)
[2019-01-22] MEDS ORDERED: FLUoxetine HCL 10 MG (PROzac) CAPSULE/TABLET PO SCH (09:00)
[2019-02-05] MEDS ORDERED: SIMV40TA25 PO (13:03)
== END 2019-01-21 15:36 | disposition home or self-care (01) ==
LOC: EDUNIT# 18:06 → ER 18:07 → UNDOADMOB 20:44 → 4TH 20:44 → UNDODISOB 01-21 17:30
PROVIDERS: ADMIT Surgery; ATTEND Surgery
DX: S09.90XA Unspecified injury of head, initial encounter (principal); I10 Essential (primary) hypertension; I25.10 Atherosclerotic heart disease of native coronary artery without angina pectoris; K21.9 Gastro-esophageal reflux disease without esophagitis; K58.9 Irritable bowel syndrome, unspecified; M06.9 Rheumatoid arthritis, unspecified; F32.9 Major depressive disorder, single episode, unspecified; I48.0 Paroxysmal atrial fibrillation; W19.XXXA Unspecified fall, initial encounter; Z79.82 Long term (current) use of aspirin; Z79.01 Long term (current) use of anticoagulants; Z79.899 Other long term (current) drug therapy; Z87.891 Personal history of nicotine dependence; Z95.1 Presence of aortocoronary bypass graft; Z90.49 Acquired absence of other specified parts of digestive tract; Z96.641 Presence of right artificial hip joint; Z80.1 Family history of malignant neoplasm of trachea, bronchus and lung; Z80.41 Family history of malignant neoplasm of ovary; Z82.3 Family history of stroke
CPT/HCPCS: 36415; 70450; 70486; 72125; 80053; 85025; 85610; 85730; 93005; 93041; 96374; 96375; G0378

== ENCOUNTER 2019-02-05 05:40 | Outpatient (CLI) | payer MEDICARE ==
[~2019-02-05] VITALS: Ht 162.6 cm; Wt 95.3 kg
[~2019-02-05 05:40] MED LIST changes: +ACET-93 PO; +ASPI-999 PO; +CALC600T12 PO; +CHOL10008 PO; +CHOL500049 PO; +CYAN250010 PO; +DIPH1TAB PO; +FLUO10CA19 PO; +OMEG-14 PO; +ROSU10TA28; +VIT1CAPS44 PO; +WARF-48 PO
[2019-02-05 13:00] VITALS: BP 122/61
[2019-02-05] MEDS ORDERED: SIMV40TA4 PO (13:03)
== END 2019-02-05 13:15 | disposition home or self-care (01) ==
LOC: PREOP 05:40
PROVIDERS: ATTEND Otolaryngology Otolaryngology/Facial Plastic Surgery
DX: Z01.818 Encounter for other preprocedural examination (principal)
CPT/HCPCS: 87081

== ENCOUNTER 2019-02-07 08:40 | Day surgery (SDC) | payer MEDICARE ==
[2019-02-07] VITALS (9 sets, daily range): BP systolic 119–175; BP diastolic 67–104
[~2019-02-07] VITALS: Ht 162 cm; Wt 95.3 kg
[~2019-02-07 08:40] MED LIST changes: +SIMV40TA4 PO
[2019-02-07] MEDS ORDERED: LACTATED RINGERS 1,000 ML IV PRN (08:45)
[2019-02-07] MEDS ORDERED: LIDOCAINE PF 1% 5 ML (XYLOCAINE) AMP ONE (09:32)
[2019-02-07 09:46] LABS: BASOPHILS % (AUTO) 0 % (0-10); EOSINOPHILS % (AUTO) 1 % (0-10); HEMATOCRIT 38 % (35-52); HEMOGLOBIN 11.9 G/DL (11.5-16.0); LYMPHOCYTES # (AUTO) 1.3 X 10^3 (1.0-4.0); LYMPHOCYTES % (AUTO) 35 % (12-44); MEAN CORPUSCULAR HEMOGLOBIN 30 PG (25-34); MEAN CORPUSCULAR HGB CONC 32 G/DL (32-36); MEAN CORPUSCULAR VOLUME 94 FL (80-99); MONOCYTES # (AUTO) 0.3 X 10^3 (0.0-1.0); MONOCYTES % (AUTO) 8 % (0-12); NEUTROPHILS % (AUTO) 56 % (42-75); PLATELET COUNT 120 10^3/uL (130-400); WHITE BLOOD COUNT 3.6 10^3/uL (4.3-11.0)
[2019-02-07 09:58] LABS: INR 1.5 (0.8-1.4)
[2019-02-07 10:03] LABS: BUN/CREATININE RATIO 33; CALCIUM 9.1 MG/DL (8.5-10.1); CARBON DIOXIDE 22 MMOL/L (21-32); CHLORIDE 111 MMOL/L (98-107); CREATININE SERUM 0.63 MG/DL (0.60-1.30); GFR ESTIMATED > 60; GLUCOSE 95 MG/DL (70-105); SODIUM 143 MMOL/L (135-145)
[2019-02-07] MEDS ORDERED: COCAINE HCL 4% 2 ML SYR ONE (11:41)
[2019-02-07] MEDS ORDERED: MUPIROCIN 2% OINT 22 GM (BACTROBAN) TUBE ONE (11:41)
[2019-02-07] MEDS ORDERED: LIDOCAINE/EPI 1%-1:100,000 (XYLOCAINE) 20ML ONE (11:41)
[2019-02-07] MEDS ORDERED: PHENYLEPHRINE 0.5% NASAL SPR (NEO-SYNEPHRINE) REG ONE (11:41)
--- NOTE | 2019-02-07 12:22 | Progress Note-Pre Operative ---
Pre-Operative Progress Note H&P Reviewed The H&P was reviewed, patient examined and no changes noted. Date Seen by Provider: Feb 07, 2019 Time Seen by Provider: 12:20 Date H&P Reviewed: Feb 07, 2019 Time H&P Reviewed: 12:20 Pre-Operative Diagnosis: Displaced Nasal Fracture OLIVER TARIQ MD Feb 07, 2019 12:22
[2019-02-07] MEDS ORDERED: fentaNYL INJECTION 100 MCG/2 ML AMP ONE (12:35)
[2019-02-07] MEDS ORDERED: MIDAZOLAM 2 MG/2 ML (VERSED) VIAL ONE (12:35)
[2019-02-07] MEDS ORDERED: proPOfol 200 MG/20 ML (DIPRIVAN) VIAL IV ONE (12:53)
[2019-02-07] MEDS ORDERED: ISOFLURANE (FORANE) 15 ML/15 MIN INHALATION ONE (12:53)
[2019-02-07] MEDS ORDERED: ONDANSETRON 4 MG/2 ML (SDV) Z0FRAN ONE (12:53)
[2019-02-07] MEDS ORDERED: SUCCINYLCHOLINE INJ 100 MG/5 ML SYR ONE (12:53)
[2019-02-07] MEDS ORDERED: LIDOCAINE PF 2% 5 ML (XYLOCAINE) VIAL ONE (12:53)
--- NOTE | 2019-02-07 13:02 | Progress Note-Post Operative ---
Post-Operative Progess Note Surgeon (s)/Airbrush Artist (s) Surgeon OLIVER TARIQ MD Airbrush Artist n/a Pre-Operative Diagnosis Displaced Nasal Fracture Post-Operative Diagnosis same Post-Op Procedure Note Date of Procedure: Feb 07, 2019 Name of Procedure Performed: Closed Reduction of Nasal Fracture Description & Findings Description and Findings: n/a Anesthesia Type get Estimated Blood Loss minimal Packing none. Specimen(s) collected/removed none OLIVER TARIQ MD Feb 07, 2019 13:02
--- NOTE | 2019-02-07 13:12 | Anesthesia-General Post-Op ---
General Patient Condition Mental Status/LOC: Same as Preop Cardiovascular: Satisfactory Nausea/Vomiting: Absent Respiratory: Satisfactory Pain: Controlled Complications: Absent Post Op Complications Complications None Follow Up Care/Instructions Patient Instructions None needed. Anesthesia/Patient Condition Patient Condition Patient is doing well, no complaints, stable vital signs, no apparent adverse anesthesia problems. No complications reported per nursing. DEEPA REED CRNA Feb 07, 2019 13:12
[2019-02-07] MEDS ORDERED: ONDANSETRON 4 MG/2 ML (SDV) Z0FRAN IVP PRN (13:15)
[2019-02-07] MEDS ORDERED: fentaNYL INJECTION 100 MCG/2 ML AMP IVP ONE (13:15)
[2019-02-07] MEDS ORDERED: ACETAMINOPHEN 325 MG TABLET PO PRN (13:15)
[2019-02-07] MEDS ORDERED: MEPERIDINE (DEMEROL) INJ 50 MG/ML IVP ONE (13:15)
[2019-02-07] MEDS ORDERED: HYDROcodone/APAP 5 MG/325 MG (LORTAB) TAB PO PRN (13:15)
[2019-02-07] MEDS ORDERED: morphine INJ 10 MG/ML 1ML (SYR OR VIAL) IVP ONE (13:15)
[2019-02-07] MEDS ORDERED: HYDR-3812 PO (13:28)
== END 2019-02-07 14:45 | disposition home or self-care (01) ==
LOC: SDC 08:40
PROVIDERS: ATTEND Otolaryngology Otolaryngology/Facial Plastic Surgery
DX: S02.2XXA Fracture of nasal bones, initial encounter for closed fracture (principal); I10 Essential (primary) hypertension; I25.119 Atherosclerotic heart disease of native coronary artery with unspecified angina pectoris; I48.91 Unspecified atrial fibrillation; K21.9 Gastro-esophageal reflux disease without esophagitis; Z79.899 Other long term (current) drug therapy; Z95.1 Presence of aortocoronary bypass graft
CPT/HCPCS: 36415; 80048; 85025; 85610

== ENCOUNTER → 2020-04-23 | Outpatient (CLI) | payer MEDICARE ==
[~2020-04-23] MED LIST changes: -CALC600T12 PO; +CLC600T PO; -FLUO10CA19 PO; +FLUO10CA31 PO; +SIMV40TA25 PO; -SIMV40TA4 PO
--- NOTE | 2020-04-23 18:21 | Diagnostic Imaging Report ---
INDICATION: Routine screening. COMPARISON: 01/18/2018. TECHNIQUE: 2D and 3D bilateral screening mammography was performed with CAD. FINDINGS: Scattered fibroglandular densities are identified bilaterally. Benign parenchymal and vascular calcifications are identified in both breasts. There is a density in the far posterior right breast near the chest wall on the MLO view. Additional views are recommended. No correlate on the CC view is seen. No malignant appearing microcalcifications are identified. The axillae are unremarkable. IMPRESSION: Right breast density. Additional views are recommended for further evaluation. ACR BI-RADS Category 0: Incomplete. (Needs additional imaging evaluation). Result letter will be mailed to the patient. Note: At least 10% of breast cancer is not imaged by mammography. Dictated by: Dictated on workstation # [id number]
== END ==
LOC: RAD 10:17
DX: Z12.31 Encounter for screening mammogram for malignant neoplasm of breast (principal)
CPT/HCPCS: 77063; 77067

== ENCOUNTER → 2020-09-02 | Outpatient (CLI) | payer MEDICARE ==
[~2020-09-02] MED LIST changes: +CALC600T91 PO; -CLC600T PO; +GADOBUTROL 15 MMOL/15 ML (GADAVIST) VIAL IV ONE
--- NOTE | 2020-09-02 16:03 | Diagnostic Imaging Report ---
EXAMINATION: MRI BREAST BILAT W W/O CON INDICATION: Further evaluation of right breast asymmetry seen on recent screening mammogram. TECHNIQUE: Utilizing a 1.5 Rhina magnet, the patient was placed in the prone position with a dedicated breast coil in place. Axial STIR, T2 fat sat, T1 and T1 fat-sat images are obtained without contrast. Postcontrast high-resolution dynamic images are also obtained. Pre and post contrasted images are then evaluated with [email or web address] for evaluation of possible angiogenesis. 9 mL of Gadavist gadolinium contrast material was administered intravenously. COMPARISON: Recent screening mammogram performed on 04/23/2020. Comparison is also made to prior diagnostic left mammogram and ultrasound performed on 03/02/2018 and prior screening mammograms performed in 2017 and 2011. FINDINGS: RIGHT BREAST: The breast is composed almost entirely of fat. There is minimal background parenchymal enhancement. There is an irregular 6 mm enhancing mass in the far posterior breast near 1:00 approximately 11 cm posterior to the nipple (image 83 series 801). This demonstrates heterogeneous enhancement, with some washout noted and likely corresponds to the asymmetry seen on recent screening mammogram. There is a 5 mm overall enhancing mass in the 3:00 periareolar region approximately 3 cm posterior to the nipple (image 126 series 801). This mass is T1 iso-hypointense and peripherally hyperintense on T2 images. It demonstrates predominantly persistent-type enhancement on kinetic analysis. This likely corresponds to a stable focal asymmetry in the lower inner right breast that has been present on mammogram dating back to 2011. Inferior to this near 5:00 approximately 3.5 cm from the nipple near the medial skin surface, there is a 4 mm enhancing focus (image 146 series 802). This focus is T1 isointense and T2 hyperintense, demonstrating predominantly persistent-type enhancement on kinetic analysis. No definite mammographic correlate is found for this focus. No other suspicious mass or non-mass enhancement There is no axillary or internal mammary adenopathy. LEFT BREAST: The breast is composed almost entirely of fat. There is minimal background parenchymal enhancement. There is no suspicious mass or non-mass enhancement. There is no axillary or internal mammary adenopathy. Other: Multiple nonenhancing T2 hyperintense lesions are demonstrated in the liver, presumably cysts. The patient is status post median sternotomy. IMPRESSION: Irregular enhancing mass in the upper inner breast at far posterior depth is felt to correspond to the mammographic asymmetry seen on recent screening mammogram and is suspicious for malignancy. As previously reported, further evaluation of this finding is recommended with additional diagnostic mammographic views as well as dedicated right breast ultrasound. If no sonographic correlate is found, stereotactic guided biopsy should be pursued as this finding is likely too far posterior for successful MR guided biopsy. Additional areas of enhancement in the left breast in the 3:00 periareolar region and 5:00 breast near the skin surface are indeterminate. These findings are probably benign, with the 3:00 lesion likely present on prior mammograms dating back to 2011. Further evaluation of these areas with 2nd look (MRI directed ultrasound) is recommended. If no sonographic correlate is found for these areas, short interval follow-up breast MRI in 6 months is recommended to demonstrate stability. MRI guided biopsy of these areas could be considered, as clinically warranted, depending biopsy results of the more suspicious finding in the 1:00 region. BI-RADS Category 4: Suspicious RECOMMENDATIONS: Further evaluation with diagnostic mammogram and right breast ultrasound, as detailed above. Ultrasound/stereotactic guided biopsy of suspicious finding in the 1:00 far posterior right breast. Dictated by: Dictated on workstation # [id number]
== END ==
LOC: RAD 12:43
DX: N63.12 Unspecified lump in the right breast, upper inner quadrant (principal)
CPT/HCPCS: 77049

== ENCOUNTER → 2021-03-01 | Outpatient (CLI) | payer MEDICARE ==
[~2021-03-01] MED LIST changes: -FLUO10CA31 PO; +FLUO10CA33 PO; -GADOBUTROL 15 MMOL/15 ML (GADAVIST) VIAL IV ONE
== END ==
LOC: CARD 13:25
PROVIDERS: ATTEND Nurse Practitioner Family
DX: I35.0 Nonrheumatic aortic (valve) stenosis (principal); I51.7 Cardiomegaly
CPT/HCPCS: 93306

== ENCOUNTER 2021-05-04 07:54 | Emergency (ER) | payer MEDICARE ==
[~2021-05-04] VITALS: Ht 160 cm; Wt 93.4 kg
--- NOTE | 2021-05-04 09:10 | ED Cardiac General ---
History of Present Illness General Chief Complaint: Cardiac/General Problems Stated Complaint: HEADACHE - HIGH BP Nursing Triage Note: ARRIVED VIA AMB WITH COMPLAINTS OF HYPTERTENSION AND FEELING HER PULSE IN HER HEAD SINCE YESTERDAY. Source: patient Exam Limitations: no limitations History of Present Illness Date Seen by Provider: May 04, 2021 Time Seen by Provider: 08:50 Initial Comments Patient ER by private man chief complaint 2 days of headache, hypertension with a high of 200/110 and feeling her pulse in her head and ears. She has a history of coronary disease status post two-vessel CABG known to Dr. Sadler and primary care by Dr. Hill. She denies a history of hypertension and only takes atenolol for her history of rapid heart rate. She does have hyperlipidemia but no diabetes and not having any chest pain shortness of air or exertional dyspnea. No fevers chills cough diarrhea nausea or vomiting. No history of stroke, weakness numbness tingling loss of control of bowel or bladder, facial asymmetry, slurred speech. She thinks she has been having problems with her balance for the past 3 days. Allergies and Home Medications Allergies Coded Allergies: No Known Drug Allergies (Verified , 06/04/07) Patient Home Medication List Home Medication List Reviewed: Yes Acetaminophen (Acetaminophen) 500 Mg Tablet, 500-1,000 MG PO Q8H PRN for PAIN- MILD (1-4), (Reported) Entered as Reported by: ALEXIA BARAKAT on 01/21/19 111 Atenolol (Atenolol) 25 Mg Tablet, 25 MG PO BID, (Reported) Entered as Reported by: ALEXIA BARAKAT on 01/21/19 111 Calcium Carbonate (Calcium) 600 Mg Tablet, 600 MG PO BID, (Reported) Entered as Reported by: ALEXIA BARAKAT on 01/21/19 111 Cholecalciferol (Vitamin D3) (Vitamin D3) 1,000 Unit Tab.chew, 3,000 UNIT PO DAILY, (Reported) Entered as Reported by: ALEXIA BARAKAT on 01/21/19 1119 Cholecalciferol (Vitamin D3) (Vitamin D3) 50,000 Unit Capsule, 50,000 UNIT PO EVERY 2 WEEKS, (Reported) Entered as Reported by: ALEXIA BARAKAT on 01/21/19 1125 Cyanocobalamin (Vitamin B-12) (Vitamin B12) 2,500 Mcg Tablet, 2,500 MCG PO D AILY, (Reported) Entered as Reported by: ALEXIA BARAKAT on 01/21/19 1120 Diphenoxylate HCl/Atropine (Lomotil 2.5-0.025 mg Tablet) 1 Each Tablet, 1 EACH PO TID PRN for DIARRHEA, (Reported) Entered as Reported by: ALEXIA BARAKAT on 01/21/19 1120 Fluoxetine HCl (Fluoxetine HCl) 10 Mg Capsule, 10 MG PO DAILY, (Reported) Entered as Reported by: NICHOLAS RENAE on 01/20/19 1814 Hydrocodone Bit/Acetaminophen (Lortab 5 Mg Tablet) 1 Each Tablet, 1 TAB PO Q4- 6HR Prescribed by: CATHI MOONEY on 02/07/19 1328 [place]-3 Fatty Acids/Fish Oil (Eql Fish Oil 1,200 mg Softgel) 1 Each Capsule, 1 EACH PO BID, (Reported) Entered as Reported by: ALEXIA BARAKAT on 01/21/19 1119 Simvastatin (Simvastatin) 40 Mg Tablet, 40 MG PO HS, (Reported) Entered as Reported by: RICO SUAREZ on 02/05/19 1303 Vit C/E/Zn/Coppr/Lutein/Zeaxan (Preservision Areds 2 Softgel) 1 Each Capsule, 1 EACH PO BID, (Reported) Entered as Reported by: ALEXIA BARAKAT on 01/21/19 1120 Review of Systems Review of Systems Constitutional: No chills, No diaphoresis EENTM: No Blurred Vision, No Double Vision Respiratory: Denies Cough, Denies Orthopnea Gastrointestinal: Denies Abdomen Distended, Denies Abdominal Pain Genitourinary: Denies Burning, Denies Discharge Musculoskeletal: No back pain, No joint pain Skin: No change in color, No dryness Psychiatric/Neurological: Denies Anxiety, Denies Depressed All Other Systems Reviewed Negative Unless Noted: Yes Past Lqcrwxl-Zcspxz-Bbrutm Hx Patient Social History Tobacco Use?: No Use of E-Cig and/or Vaping dev: No Substance use?: No Seasonal Allergies Seasonal Allergies: No Past Medical History Surgeries: Yes (R THR, R ANKLE ORIF, CYST NECK, BILAT TKR, ) Cardiac, CABG, Gallbladder, Joint Replacement, Orthopedic Respiratory: No Cardiac: Yes (SINUS NODE DYSFUCTION HX) Atrial Fibrillation, Coronary Artery Disease, High Cholesterol, Hypertension Neurological: No 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 Disorders: No Female 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 Disorders: 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 Sexually Transmitted Disease: No HIV/AIDS: No Genitourinary: Yes Bladder Infection Gastrointestinal: Yes Gastroesophageal Reflux, Irritable Bowel Musculoskeletal: Yes (FX R ANKLE, R Hip Replacement, Lt knee) Arthritis, Rheumatoid Arthritis, Fractures Endocrine: No HEENT: Yes Cataract Loss of Vision: Denies Hearing Impairment: Denies Cancer: No Psychosocial: Yes Depression Integumentary: No Blood Disorders: No Adverse Reaction/Blood Tranf: No Family Medical History Cardiovascular disease G8 SISTER Completed stroke 19 MOTHER G8 SISTER FH: blood disorder 19 FATHER FH: lung cancer G8 SISTER FH: ovarian cancer G8 SISTER FHx: obesity G8 SISTER G8 SISTER G8 SISTER Hypertension 19 MOTHER Heart Disease, Cancer, Hypertension, Stroke Physical Exam Vital Signs Vital Signs - First Documented 05/04/21 08:30 Temp 36.3 Pulse 68 Resp 16 B/P (MAP) 194/79 (117) Pulse Ox 96 O2 Delivery Room Air Capillary Refill : Less Than 3 Seconds Height, Weight, BMI Height: 5'4.00" Weight: 211lbs. 0.0oz. [id number]; 36.00 BMI Method:Stated General Appearance: No Apparent Distress, Obese HEENT: PERRL/EOMI, Pharynx Normal; No Moist Mucous Membranes (Dry oral mucosa) Neck: Full Range of Motion, Normal Inspection Respiratory: Lungs Clear, Normal Breath Sounds, No Accessory Muscle Use, No Respiratory Distress Cardiovascular: Regular Rate, Rhythm, No Edema, Normal Peripheral Pulses Extremity: Normal Capillary Refill, Normal Inspection, Normal Range of Motion, Non Tender Neurologic/Psychiatric: Alert, Oriented x3 Skin: Normal Color, Warm/Dry Progress/Results/Core Measures Results/Orders Lab Results Laboratory Tests Test 05/04/21 08:46 Range/Units White Blood Count 4.0 L 4.3-11.0 10^3/uL Red Blood Count 4.83 3.80-5.11 10^6/uL Hemoglobin 14.2 11.5-16.0 g/dL Hematocrit 44 35-52 % Mean Corpuscular Volume 91 80-99 fL Mean Corpuscular Hemoglobin 29 25-34 pg Mean Corpuscular Hemoglobin Concent 32 32-36 g/dL Red Cell Distribution Width 14.8 H 10.0-14.5 % Platelet Count 118 L 130-400 10^3/uL Mean Platelet Volume 11.7 9.0-12.2 fL Immature Granulocyte % (Auto) 0 % Neutrophils (%) (Auto) 61 42-75 % Lymphocytes (%) (Auto) 29 12-44 % Monocytes (%) (Auto) 9 0-12 % Eosinophils (%) (Auto) 1 0-10 % Basophils (%) (Auto) 0 0-10 % Neutrophils # (Auto) 2.4 1.8-7.8 10^3/uL Lymphocytes # (Auto) 1.1 1.0-4.0 10^3/uL Monocytes # (Auto) 0.4 0.0-1.0 10^3/uL Eosinophils # (Auto) 0.0 0.0-0.3 10^3/uL Basophils # (Auto) 0.0 0.0-0.1 10^3/uL Immature Granulocyte # (Auto) 0.0 0.0-0.1 10^3/uL Percent Immature Platelet Fraction 7.2 0.0-7.6 % Sodium Level 143 135-145 MMOL/L Potassium Level 4.0 3.6-5.0 MMOL/L Chloride Level 106 98-107 MMOL/L Carbon Dioxide Level 24 21-32 MMOL/L Anion Gap 13 5-14 MMOL/L Blood Urea Nitrogen 13 7-18 MG/DL Creatinine 0.67 0.60-1.30 MG/DL Estimat Glomerular Filtration Rate 86 BUN/Creatinine Ratio 19 Glucose Level 104 70-105 MG/DL Calcium Level 9.6 8.5-10.1 MG/DL Corrected Calcium 9.7 8.5-10.1 MG/DL Magnesium Level 1.9 1.6-2.4 MG/DL Total Bilirubin 0.9 0.1-1.0 MG/DL Aspartate Amino Transf (AST/SGOT) 24 5-34 U/L Alanine Aminotransferase (ALT/SGPT) 18 0-55 U/L Alkaline Phosphatase 44 40-136 U/L Troponin I < 0.028 <0.028 NG/ML C-Reactive Protein High Sensitivity 0.14 0.00-0.50 MG/DL Total Protein 7.1 6.4-8.2 GM/DL Albumin 3.9 3.2-4.5 GM/DL My Orders Orders - MATTY CM Cbc With Automated Diff (05/04/21 09:06) Comprehensive Metabolic Panel (05/04/21 09:06) Hs C Reactive Protein (05/04/21 09:06) Troponin I Yue (05/04/21 09:06) Ekg Tracing (05/04/21 09:06) Continuous Ekg Monitoring (05/04/21 09:06) Magnesium (05/04/21 09:06) Chest 1 View, Ap/Pa Only (05/04/21 09:06) Ct Angio Head/Neck (05/04/21 09:22) Iohexol Injection (Omnipaque 350 Mg/Ml 1 (05/04/21 09:45) Received Contrast (Hold Metformin- Contr (05/04/21 09:45) Sodium Chloride Flush (Catheter Flush Sy (05/04/21 09:45) Ns (Ivpb) (Sodium Chloride 0.9% Ivpb Bag (05/04/21 09:45) Medications Given in ED Current Medications Medications Dose Ordered Sig/Caryn Route Start Time Stop Time Status Last Admin Dose Admin Iohexol 75 ml ONCE ONCE IV 05/04/21 09:45 05/04/21 09:46 DC 05/04/21 09:52 75 ML Sodium Chloride 10 ml NEEDED PRN IV 05/04/21 09:45 05/04/21 09:53 10 ML Sodium Chloride 100 ml ONCE ONCE IV 05/04/21 09:45 05/04/21 09:46 DC 05/04/21 09:53 80 ML Vital Signs/I&O 05/04/21 08:30 Temp 36.3 Pulse 68 Resp 16 B/P (MAP) 194/79 (117) Pulse Ox 96 O2 Delivery Room Air Blood Pressure Mean: 117 Progress Progress Note #1: Time: 09:16 Progress Note Echocardiogram from February of this year demonstrates EF of 60 to 65% with no regional wall motion. Mild concentric hypertrophy. She is not had any ultrasound or imaging of her carotid or vertebral arteries. With hypertension and no neurologic symptoms about tinnitus will consider getting a CT angiogram to rule out aneurysm or other adventitious findings. Progress Note #2: Time: 11:31 Progress Note The patient's asymptomatic her blood pressure has stayed in the 1 7180 range. This is a significant drop from presentation. Plan to give her 20 mg lisinopril start her on lisinopril and have her follow-up in [address] Sadler or Dr. Hill for risk factor mitigation for stroke and heart attack. Discussed with her the vessels in her head that have some narrowing and encouraged her to continue taking her aspirin and aggressively pursue treatment of her hypertension. She should consider another statin since she did not tolerate the statin she was on. She is already on fish oil. We encouraged her to take co- Q10. Initial ECG Impression Date: May 04, 2021 Initial ECG Impression Time: 08:50 Initial ECG Rate: 60 Initial ECG Rhythm: Normal Sinus Initial ECG Intervals: Normal Initial ECG Impression: Normal Initial ECG Comparisson: Unchanged Comment Normal sinus rhythm without clinically relevant ST changes. Left ventricular hypertrophy. Diagnostic Imaging Diagonstic Imaging: Xray Plain Films/CT/US/NM/MRI: chest Comments [facility] [place] [place] NAME: [facility] REC#: [id number] PT STATUS: REG ER : 1935 PHYSICIAN: MATTY CM MD ADMIT DATE: 05/04/21/ER Draft Date of Exam:05/04/21 CHEST 1 VIEW, AP/PA ONLY INDICATION: htn pablo COMPARISON: 04/15/2015 FINDINGS: Single frontal view of the chest demonstrates normal heart size and pulmonary vascularity. The lungs are well aerated and clear. No large pleural effusion or pneumothorax is seen. The visualized osseous structures show no acute abnormalities. Sternotomy wires are noted. IMPRESSION: 1. No acute cardiopulmonary process. Dictated on workstation # [id number] Dict: 05/04/21 0944 Trans: 05/04/21 0946 [facility] [id number] Interpreted by: JUAN F BARR MD Electronically signed by: Reviewed: Reviewed by Me Diagonstic Imaging: CT (a) Plain Films/CT/US/NM/MRI: head (neck) Comments [facility] [place] [place] [facility] [id number] PT STATUS: REG ER : 1935 PHYSICIAN: MATTY CM MD ADMIT DATE: 05/04/21/ER Signed Date of Exam:05/04/21 CT ANGIO HEAD/NECK PROCEDURE: CT angiography of the head and CT angiography of the neck with and without contrast. TECHNIQUE: Contiguous noncontrast images were obtained from the skull base through the vertex. After intravenous contrast administration, helical CT angiography of the neck was performed. Source data was reformatted into 3D MIP projections. Delayed post contrast acquisition was also obtained. Auto Exposure Controls were utilized during the CT exam to meet ALARA standards for radiation dose reduction. INDICATION: Headache. Hypertension. Comparison: 01/20/2019. FINDINGS: CTA Neck: The visualized portions of the aortic arch demonstrate no evidence of aneurysm or dissection. There is conventional branching pattern of the great vessels of the aorta. The brachiocephalic artery is normal in course and caliber. The right and left common carotid origins are unremarkable. The origin of the left subclavian artery is patent. The common carotid arteries and internal carotid arteries demonstrate a tortuous course. There is calcified atherosclerotic plaque in the bilateral carotid bulbs and proximal internal carotid arteries without flow-limiting stenosis. No evidence of dissection in the carotid systems. The external carotid arteries are patent and unremarkable. The left vertebral artery is dominant. The origin of the right vertebral artery is seen and is unremarkable. The origin of the left vertebral artery is seen and is unremarkable. There is no focal stenosis seen within the neck. There is no dissection. The vertebral arteries are well visualized to up to the level of the basilar artery. The osseous structures of the cervical spine are unremarkable. Included views through the lung apices demonstrate no focal consolidation. CTA brain: Atherosclerotic plaque is seen in the mendez of the bilateral terminal internal carotid arteries without significant stenosis. There is focal stenosis in the A2 segment of the left YASMINE of approximately 80%. The right YASMINE is widely patent. Luminal irregularity is seen in the bilateral MCA. There is narrowing of approximately 70% in the distal M1 segment of the right MCA. Luminal irregularity is seen in the P1 and P2 segments of the bilateral GAS MAKER HELPER. There is stenosis of approximately 70% in the P2 segment of the left GAS MAKER HELPER. No large vessel occlusion in the [place]. No evidence of aneurysm the [place]. In the posterior circulation, both of the vertebral arteries demonstrate normal opacification. Both the right and left PICA arteries are identified. The basilar artery is normal in course and caliber. The terminal branch vessels including the superior cerebellar arteries unremarkable. CT head: No large acute territorial ischemia, mass, or hemorrhage. No midline shift or mass effect. Decreased attenuation is seen in the periventricular and subcortical white matter. The ventricles and cortical sulci are symmetric. The basilar cisterns are patent and unremarkable. The calvarium is intact. Retained secretions are seen in the bilateral sphenoid sinuses. IMPRESSION: 1. No large vessel occlusion or aneurysm in the [place]. 2. Intracranial atherosclerotic plaque with varying degrees of stenosis in the A2 segment of the left YASMINE, distal M1 segment of the right MCA, and P2 segment of the left GAS MAKER HELPER. 3. No stenosis or dissection the bilateral carotid and vertebral arteries. 4. No large acute territorial ischemia. No acute hemorrhage or mass. 5. Scattered chronic microvascular disease. Dictated by: Dictated on workstation # [id number] Dict: 05/04/21 1009 Trans: 05/04/21 1024 CV [id number] Interpreted by: ARTHUR SULLIVAN DO Electronically signed by: ARTHUR SULLIVAN DO 05/04/21 1024 Reviewed: Reviewed by Me Departure Impression Primary Impression: Hypertensive urgency Disposition: HOME, SELF-CARE Condition: Stable Departure-Patient Inst. Decision time for Depature: 11:32 Referrals: ZIA SADLER MD [facility] GUMARO HILL MD (PCP/Family) Primary Care Physician Patient Instructions: Malignant Hypertension (DC), Medicines for High Blood P ressure Add. Discharge Instructions: Start taking lisinopril 20 mg daily. If you want for the first 3 days you can take 10 mg and then increase to 20 mg. Follow-up with either the primary care doctor or perioperative manager in 1 to 2 weeks for recheck of your blood pressure. Return to the ER promptly if you are having severe pain, chest pain, shortness of air, difficulty speaking walking or weakness/numbness on 1 side of your body or face. All discharge instructions reviewed with patient and/or family. Voiced understanding. Scripts Lisinopril (Lisinopril) 20 Mg Tablet 20 MG PO DAILY for 14 Days, #14 TAB 0 Refills Prov: MATTY CM 05/04/21 Copy Copies To 1: ZIA SADLER MD [facility]; GUMARO HILL MD, TITUS J May 04, 2021 09:10
[2021-05-04 09:15] LABS: BASOPHILS % (AUTO) 0 % (0-10); HEMOGLOBIN 14.2 g/dL (11.5-16.0)
[2021-05-04 09:17] LABS: EOSINOPHILS % (AUTO) 1 % (0-10); HEMATOCRIT 44 % (35-52); LYMPHOCYTES # (AUTO) 1.1 10^3/uL (1.0-4.0); LYMPHOCYTES % (AUTO) 29 % (12-44); MEAN CORPUSCULAR HEMOGLOBIN 29 pg (25-34); MEAN CORPUSCULAR HGB CONC 32 g/dL (32-36); MEAN CORPUSCULAR VOLUME 91 fL (80-99); MEAN PLATELET VOLUME 11.7 fL (9.0-12.2); MONOCYTES # (AUTO) 0.4 10^3/uL (0.0-1.0); MONOCYTES % (AUTO) 9 % (0-12); NEUTROPHILS # (AUTO) 2.4 10^3/uL (1.8-7.8); NEUTROPHILS % (AUTO) 61 % (42-75); PLATELET COUNT 118 10^3/uL (130-400)
[2021-05-04 09:20] LABS: ALBUMIN 3.9 GM/DL (3.2-4.5); CHLORIDE 106 MMOL/L (98-107); SODIUM 143 MMOL/L (135-145)
[2021-05-04 09:21] LABS: CALCIUM 9.6 MG/DL (8.5-10.1)
[2021-05-04 09:22] LABS: GLUCOSE 104 MG/DL (70-105); TOTAL PROTEIN 7.1 GM/DL (6.4-8.2)
[2021-05-04 09:23] LABS: CARBON DIOXIDE 24 MMOL/L (21-32)
[2021-05-04 09:24] LABS: BILIRUBIN,TOTAL 0.9 MG/DL (0.1-1.0)
[2021-05-04 09:26] LABS: ALKALINE PHOSPHATASE 44 U/L (40-136); CREATININE SERUM 0.67 MG/DL (0.60-1.30); GFR ESTIMATED 86
[2021-05-04 09:27] LABS: BUN/CREATININE RATIO 19
[2021-05-04 09:29] LABS: ALANINE AMINOTRANSFERASE 18 U/L (0-55); MAGNESIUM 1.9 MG/DL (1.6-2.4)
[2021-05-04] MEDS ORDERED: HOLD METFORMIN - RECEIVED CONTRAST 20 ML VIAL IV SCH (09:45)
[2021-05-04] MEDS ORDERED: IOHEXOL 350 MG/ML 100 ML (OMNIPAQUE 350) VIAL IV ONE (09:45)
[2021-05-04] MEDS ORDERED: NS 100 ML (IVPB) BAG IV ONE (09:45)
[2021-05-04] MEDS ORDERED: CATHETER FLUSH 10 ML SYR IV PRN (09:45)
--- NOTE | 2021-05-04 09:46 | Diagnostic Imaging Report ---
INDICATION: htn pablo COMPARISON: 04/15/2015 FINDINGS: Single frontal view of the chest demonstrates normal heart size and pulmonary vascularity. The lungs are well aerated and clear. No large pleural effusion or pneumothorax is seen. The visualized osseous structures show no acute abnormalities. Sternotomy wires are noted. IMPRESSION: 1. No acute cardiopulmonary process. Dictated by: Dictated on workstation # [id number]
--- NOTE | 2021-05-04 10:22 | Diagnostic Imaging Report ---
PROCEDURE: CT angiography of the head and CT angiography of the neck with and without contrast. TECHNIQUE: Contiguous noncontrast images were obtained from the skull base through the vertex. After intravenous contrast administration, helical CT angiography of the neck was performed. Source data was reformatted into 3D MIP projections. Delayed post contrast acquisition was also obtained. Auto Exposure Controls were utilized during the CT exam to meet ALARA standards for radiation dose reduction. INDICATION: Headache. Hypertension. Comparison: 01/20/2019. FINDINGS: CTA Neck: The visualized portions of the aortic arch demonstrate no evidence of aneurysm or dissection. There is conventional branching pattern of the great vessels of the aorta. The brachiocephalic artery is normal in course and caliber. The right and left common carotid origins are unremarkable. The origin of the left subclavian artery is patent. The common carotid arteries and internal carotid arteries demonstrate a tortuous course. There is calcified atherosclerotic plaque in the bilateral carotid bulbs and proximal internal carotid arteries without flow-limiting stenosis. No evidence of dissection in the carotid systems. The external carotid arteries are patent and unremarkable. The left vertebral artery is dominant. The origin of the right vertebral artery is seen and is unremarkable. The origin of the left vertebral artery is seen and is unremarkable. There is no focal stenosis seen within the neck. There is no dissection. The vertebral arteries are well visualized to up to the level of the basilar artery. The osseous structures of the cervical spine are unremarkable. Included views through the lung apices demonstrate no focal consolidation. CTA brain: Atherosclerotic plaque is seen in the [place] of the bilateral terminal internal carotid arteries without significant stenosis. There is focal stenosis in the A2 segment of the left YASMINE of approximately 80%. The right YASMINE is widely patent. Luminal irregularity is seen in the bilateral MCA. There is narrowing of approximately 70% in the distal M1 segment of the right MCA. Luminal irregularity is seen in the P1 and P2 segments of the bilateral SHIFT SUPERVISOR. There is stenosis of approximately 70% in the P2 segment of the left SHIFT SUPERVISOR. No large vessel occlusion in the [place]. No evidence of aneurysm the [place]. In the posterior circulation, both of the vertebral arteries demonstrate normal opacification. Both the right and left PICA arteries are identified. The basilar artery is normal in course and caliber. The terminal branch vessels including the superior cerebellar arteries unremarkable. CT head: No large acute territorial ischemia, mass, or hemorrhage. No midline shift or mass effect. Decreased attenuation is seen in the periventricular and subcortical white matter. The ventricles and cortical sulci are symmetric. The basilar cisterns are patent and unremarkable. The calvarium is intact. Retained secretions are seen in the bilateral sphenoid sinuses. IMPRESSION: 1. No large vessel occlusion or aneurysm in the [place]. 2. Intracranial atherosclerotic plaque with varying degrees of stenosis in the A2 segment of the left YASMINE, distal M1 segment of the right MCA, and P2 segment of the left SHIFT SUPERVISOR. 3. No stenosis or dissection the bilateral carotid and vertebral arteries. 4. No large acute territorial ischemia. No acute hemorrhage or mass. 5. Scattered chronic microvascular disease. Dictated by: Dictated on workstation # [id number]
[2021-05-04] MEDS ORDERED: LISI20TA26 PO (11:35)
[2021-05-04] MEDS ORDERED: lisINopril 20 MG (PRINIVIL) TABLET PO ONE (11:45)
[2021-05-04 11:55] VITALS: BP 194/110
== END 2021-05-04 11:55 | disposition home or self-care (01) ==
LOC: EDUNIT# 07:54 → ER 07:55
DX: I16.0 Hypertensive urgency (principal); E66.9 Obesity, unspecified; Z68.36 Body mass index [BMI] 36.0-36.9, adult
CPT/HCPCS: 36415; 70496; 70498; 71045; 80053; 83735; 84484; 85025; 86141; 93005

== ENCOUNTER 2021-05-10 02:50 | Emergency (ER) | payer MEDICARE ==
[~2021-05-10 02:50] MED LIST changes: +LISI20TA26 PO
[2021-05-10] MEDS ORDERED: FLUT15.845 NS (04:53)
--- NOTE | 2021-05-10 04:53 | ED Cardiac General ---
History of Present Illness General Chief Complaint: Cardiac/General Problems Stated Complaint: HIGH BP Source: patient Exam Limitations: no limitations History of Present Illness Date Seen by Provider: May 10, 2021 Time Seen by Provider: 04:30 Initial Comments Patient to the ER by private conveyance from home with chief complaint that she feels a little like her head is swimming. She has some popping and pressure in her right ear. She also noted her blood pressure was elevated. No chest pain shortness of air nausea or vomiting. She forgot to take her lisinopril today. She just started lisinopril this last week and has been taking 20 mg a day. She has an appointment with both her heart doctor and her primary care doctor later today. Allergies and Home Medications Allergies Coded Allergies: No Known Drug Allergies (Verified , 06/04/07) Patient Home Medication List Home Medication List Reviewed: Yes Acetaminophen (Acetaminophen) 500 Mg Tablet, 500-1,000 MG PO Q8H PRN for PAIN- MILD (1-4), (Reported) Entered as Reported by: ALEXIA BARAKAT on 01/21/19 1114 Atenolol (Atenolol) 25 Mg Tablet, 25 MG PO BID, (Reported) Entered as Reported by: ALEXIA BARAKAT on 01/21/19 1114 Calcium Carbonate (Calcium) 600 Mg Tablet, 600 MG PO BID, (Reported) Entered as Reported by: ALEXIA BARAKAT on 01/21/19 1114 Cholecalciferol (Vitamin D3) (Vitamin D3) 1,000 Unit Tab.chew, 3,000 UNIT PO DAILY, (Reported) Entered as Reported by: ALEXIA BARAKAT on 01/21/19 1119 Cholecalciferol (Vitamin D3) (Vitamin D3) 50,000 Unit Capsule, 50,000 UNIT PO EVERY 2 WEEKS, (Reported) Entered as Reported by: ALEXIA BARAKAT on 01/21/19 1125 Cyanocobalamin (Vitamin B-12) (Vitamin B12) 2,500 Mcg Tablet, 2,500 MCG PO DAILY, (Reported) Entered as Reported by: ALEXIA BARAKAT on 01/21/19 1120 Diphenoxylate HCl/Atropine (Lomotil 2.5-0.025 mg Tablet) 1 Each Tablet, 1 EACH PO TID PRN for DIARRHEA, (Reported) Entered as Reported by: ALEXIA BARAKAT on 01/21/19 1120 Fluoxetine HCl (Fluoxetine HCl) 10 Mg Capsule, 10 MG PO DAILY, (Reported) Entered as Reported by: NICHOLAS RENAE on 01/20/19 1814 Hydrocodone Bit/Acetaminophen (Lortab 5 Mg Tablet) 1 Each Tablet, 1 TAB PO Q4- 6HR Prescribed by: CATHI MOONEY on 02/07/19 1328 Lisinopril (Lisinopril) 20 Mg Tablet, 20 MG PO DAILY Prescribed by: MATTY CM on 05/04/21 1135 [place]-3 Fatty Acids/Fish Oil (Eql Fish Oil 1,200 mg Softgel) 1 Each Capsule, 1 EACH PO BID, (Reported) Entered as Reported by: ALEXIA BARAKAT on 01/21/19 1119 Simvastatin (Simvastatin) 40 Mg Tablet, 40 MG PO HS, (Reported) Entered as Reported by: RICO SUAREZ on 02/05/19 1303 Vit C/E/Zn/Coppr/Lutein/Zeaxan (Preservision Areds 2 Softgel) 1 Each Capsule, 1 EACH PO BID, (Reported) Entered as Reported by: ALEXIA BARAKAT on 01/21/19 1120 Review of Systems Review of Systems Constitutional: No chills, No diaphoresis EENTM: No Blurred Vision, No Double Vision Respiratory: Denies Cough, Denies Orthopnea Cardiovascular: Denies Chest Pain, Denies Lightheadedness Gastrointestinal: Denies Constipated, Denies Diarrhea, Denies Nausea Genitourinary: Denies Burning, Denies Discharge Musculoskeletal: No back pain, No joint pain All Other Systems Reviewed Negative Unless Noted: Yes Past Dmfhbyh-Aiofvw-Hkgays Hx Patient Social History Tobacco Use?: No Use of E-Cig and/or Vaping dev: No Immunizations Up To Date First/Initial COVID19 Vaccinat: UNKNOWN DATE Second COVID19 Vaccination K[place]: UNKNOWN DATE Third COVID19 Vaccination Date: UNKNOWN DATE Seasonal Allergies Seasonal Allergies: No Past Medical History Surgeries: Yes (R THR, R ANKLE ORIF, CYST NECK, BILAT TKR, ) Cardiac, CABG, Gallbladder, Joint Replacement, Orthopedic Respiratory: No Cardiac: Yes (SINUS NODE DYSFUCTION HX) Atrial Fibrillation, Coronary Artery Disease, High Cholesterol, Hypertension Neurological: No 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 Disorders: No 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 Sexually Transmitted Disease: No HIV/AIDS: No Genitourinary: Yes Bladder Infection Gastrointestinal: Yes Gastroesophageal Reflux, Irritable Bowel Musculoskeletal: Yes (FX R ANKLE, R Hip Replacement, Lt knee) Arthritis, Rheumatoid Arthritis, Fractures Endocrine: No HEENT: Yes Cataract Loss of Vision: Denies Hearing Impairment: Denies Cancer: No Psychosocial: Yes Depression Integumentary: No Blood Disorders: No Adverse Reaction/Blood Tranf: No Family Medical History Cardiovascular disease G8 SISTER Completed stroke 19 MOTHER G8 SISTER FH: blood disorder 19 FATHER FH: lung cancer G8 SISTER FH: ovarian cancer G8 SISTER FHx: obesity G8 SISTER G8 SISTER G8 SISTER Hypertension 19 MOTHER Heart Disease, Cancer, Hypertension, Stroke Physical Exam Vital Signs Capillary Refill : Height, Weight, BMI Height: 5'4.00" Weight: 211lbs. 0.0oz. 95.068147im; 36.00 BMI Method:Stated General Appearance: No Apparent Distress, WD/WN HEENT: PERRL/EOMI, Pharynx Normal, Moist Mucous Membranes, TM Abnormal (R) (Mucoid effusion with retraction but no injection or erythema. No tenderness in the canal) Neck: Full Range of Motion, Normal Inspection Respiratory: Lungs Clear, Normal Breath Sounds, No Accessory Muscle Use, No Respiratory Distress Cardiovascular: Regular Rate, Rhythm, No Edema, Normal Peripheral Pulses Neurologic/Psychiatric: Alert, Oriented x3, No Motor/Sensory Deficits Skin: Normal Color, Warm/Dry Progress/Results/Core Measures Progress Progress Note : Time: 04:49 Progress Note Flonase 1 puff each nostril twice a day for 2 weeks to help relieve the mucoid effusion/labyrinthitis. Gave her her dose of lisinopril but before we even gave it her blood pressure was down to 167/84. She is not having any concerning symptoms. Follow-up with her primary care office today. Departure Impression Primary Impression: Acute otitis media with effusion of right ear Additional Impression: Hypertension Qualified Codes: I10 - Essential (primary) hypertension Disposition: 01 HOME, SELF-CARE Condition: Stable Departure-Patient Inst. Decision time for Depature: 04:50 Referrals: ZIA LORENZO MD FACP FACC CCDS GUMARO HILL MD (PCP/Family) Primary Care Physician Patient Instructions: Serous Otitis Media (DC) Add. Discharge Instructions: Continue taking lisinopril 20 mg a day until you meet with your doctor and then you can discuss any changes at your appointment today. Drink plenty of fluids. 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 Return to the ER for chest pain or shortness of air. All discharge instructions reviewed with patient and/or family. Voiced understanding. Scripts Fluticasone Propionate (Fluticasone Propionate) 15.8 Ml [place].susp 1 PUFF NS BID for 14 Days, #1 EA 0 Refills Prov: MATTY CM 05/10/21 Copy Copies To 1: GUMARO HILL MD, TITUS J May 10, 2021 04:53
[2021-05-10 05:17] VITALS: BP 167/84
== END 2021-05-10 05:17 | disposition home or self-care (01) ==
LOC: EDUNIT# 02:50 → ER 02:53
DX: H65.191 Other acute nonsuppurative otitis media, right ear (principal); I10 Essential (primary) hypertension
CPT/HCPCS: 99281

== ENCOUNTER 2021-07-23 10:38 | Emergency (ER) | payer MEDICARE ==
[~2021-07-23] VITALS: Ht 160 cm; Wt 93.8 kg
[~2021-07-23 10:38] MED LIST changes: +FLUT15.845 NS
--- NOTE | 2021-07-23 11:17 | ED Integumentary General ---
General Chief Complaint: Cardiac/General Problems Stated Complaint: RASH ON CHEST Source: patient Exam Limitations: no limitations History of Present Illness Date Seen by Provider: Jul 23, 2021 Time Seen by Provider: 11:11 Initial Comments Patient is a 85-year-old female who presents ED with a red itchy rash. Started on her chest about 1 month ago. Started having these red "bumps" started after she was outside. She reports itching. She states she went to urgent care on July 08 and was given triamcinolone 0.1% without much improvement. Few lesions are spread into the hands. Appears to be both sides of the chest. Denies of any purulent drainage, fever, chills, nausea, vomiting. No recent change in medication before the rash but was started on Bactrim for UTI this week. No oral lesions. Allergies and Home Medications Allergies Coded Allergies: No Known Drug Allergies (Verified , 06/04/07) Patient Home Medication List Home Medication List Reviewed: Yes Acetaminophen (Acetaminophen) 500 Mg Tablet, 500-1,000 MG PO Q8H PRN for PAIN- MILD (1-4), (Reported) Entered as Reported by: ALEXIA BARAKAT on 01/21/19 1114 Atenolol (Atenolol) 25 Mg Tablet, 25 MG PO BID, (Reported) Entered as Reported by: ALEXIA BARAKAT on 01/21/19 1114 Calcium Carbonate (Calcium) 600 Mg Tablet, 600 MG PO BID, (Reported) Entered as Reported by: ALEXIA BARAKAT on 01/21/19 1114 Cholecalciferol (Vitamin D3) (Vitamin D3) 1,000 Unit Tab.chew, 3,000 UNIT PO DAILY, (Reported) Entered as Reported by: ALEXIA BARAKAT on 01/21/19 1119 Cholecalciferol (Vitamin D3) (Vitamin D3) 50,000 Unit Capsule, 50,000 UNIT PO EVERY 2 WEEKS, (Reported) Entered as Reported by: ALEXIA BARAKAT on 01/21/19 1125 Cyanocobalamin (Vitamin B-12) (Vitamin B12) 2,500 Mcg Tablet, 2,500 MCG PO DAILY, (Reported) Entered as Reported by: ALEXAI BARAKAT on 01/21/19 1120 Diphenoxylate HCl/Atropine (Lomotil 2.5-0.025 mg Tablet) 1 Each Tablet, 1 EACH PO TID PRN for DIARRHEA, (Reported) Entered as Reported by: ALEXIA BARAKAT on 01/21/19 1120 Fluoxetine HCl (Fluoxetine HCl) 10 Mg Capsule, 10 MG PO DAILY, (Reported) Entered as Reported by: NICHOLAS RENAE on 01/20/19 1814 Fluticasone Propionate (Fluticasone Propionate) 15.8 Ml [place].susp, 1 PUFF NS BID Prescribed by: MATTY CM on 05/10/21 0453 Hydrocodone Bit/Acetaminophen (Lortab 5 Mg Tablet) 1 Each Tablet, 1 TAB PO Q4- 6HR Prescribed by: CATHI MOONEY on 02/07/19 1328 Lisinopril (Lisinopril) 20 Mg Tablet, 20 MG PO DAILY Prescribed by: MATTY CM on 05/04/21 1135 [place]-3 Fatty Acids/Fish Oil (Eql Fish Oil 1,200 mg Softgel) 1 Each Capsule, 1 EACH PO BID, (Reported) Entered as Reported by: ALEXIA BARAKAT on 01/21/19 1119 Simvastatin (Simvastatin) 40 Mg Tablet, 40 MG PO HS, (Reported) Entered as Reported by: RICO SUAREZ on 02/05/19 1303 Triamcinolone Acetonide (Triamcinolone Acetonide 0.5% Cream) 0.5 % Cream..g., 15 GM TP BID Prescribed by: MAYUR LESTER on 07/23/21 1119 Vit C/E/Zn/Coppr/Lutein/Zeaxan (Preservision Areds 2 Softgel) 1 Each Capsule, 1 EACH PO BID, (Reported) Entered as Reported by: ALEXIA BARAKAT on 01/21/19 1120 Review of Systems Review of Systems Constitutional: No chills, No diaphoresis, No malaise, No weakness EENTM: No ear pain, No blurred vision, No double vision Respiratory: No cough, No dyspnea on exertion Cardiovascular: No chest pain, No edema Gastrointestinal: No abdominal pain, No diarrhea, No nausea, No vomiting Musculoskeletal: No back pain, No joint pain Skin: change in color, pruritus, rash All Other Systems Reviewed Negative Unless Noted: Yes Past Jqtemcr-Fxoqym-Fosepp Hx Patient Social History Tobacco Use?: No Use of E-Cig and/or Vaping dev: No Substance use?: No Alcohol Use?: No Pt feels they are or have been: No Immunizations Up To Date Influenza Vaccine Up-to-Date: No; Not Current First/Initial COVID19 Vaccinat: UNKNOWN DATE Second COVID19 Vaccination Kole: UNKNOWN DATE Third COVID19 Vaccination Date: UNKNOWN DATE Seasonal Allergies Seasonal Allergies: No Past Medical History Surgeries: Yes (R THR, R ANKLE ORIF, CYST NECK, BILAT TKR, ) Cardiac, CABG, Gallbladder, Joint Replacement, Orthopedic Respiratory: No Cardiac: Yes (SINUS NODE DYSFUCTION HX) Atrial Fibrillation, Coronary Artery Disease, High Cholesterol, Hypertension Neurological: No 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 Disorders: No 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 Sexually Transmitted Disease: No HIV/AIDS: No Genitourinary: Yes Bladder Infection Gastrointestinal: Yes Gastroesophageal Reflux, Irritable Bowel Musculoskeletal: Yes (FX R ANKLE, R Hip Replacement, Lt knee) Arthritis, Rheumatoid Arthritis, Fractures Endocrine: No HEENT: Yes Cataract Loss of Vision: Denies Hearing Impairment: Denies Cancer: No Psychosocial: Yes Depression Integumentary: No Blood Disorders: No Adverse Reaction/Blood Tranf: No Family Medical History Cardiovascular disease G8 SISTER Completed stroke 19 MOTHER G8 SISTER FH: blood disorder 19 FATHER FH: lung cancer G8 SISTER FH: ovarian cancer G8 SISTER FHx: obesity G8 SISTER G8 SISTER G8 SISTER Hypertension 19 MOTHER Heart Disease, Cancer, Hypertension, Stroke Physical Exam Vital Signs Vital Signs - First Documented 07/23/21 11:05 Temp 36.8 Pulse 77 Resp 16 B/P (MAP) 141/82 (101) Pulse Ox 98 O2 Delivery Room Air Capillary Refill : General Appearance: WD/WN, no apparent distress HEENT: PERRL/EOMI, normal ENT inspection, TMs normal, pharynx normal Neck: non-tender, full range of motion, supple, normal inspection Cardiovascular: regular rate, rhythm, no edema, no gallop, no JVD Respiratory: chest non-tender, lungs clear, normal breath sounds, no respiratory distress, no accessory muscle use Gastrointestinal: normal bowel sounds, non tender, soft, no organomegaly Back: normal inspection, no CVA tenderness Extremities: normal range of motion, non-tender, normal inspection Skin: other (Erythematous papular vesicular rash to the chest. No purulent drainage. No surrounding redness or swelling) Progress/Results/Core Measures Results/Orders My Orders Orders - MAGNOLIA SCRUGGS Methylprednisolone Sod Succ (Solu-Medrol (07/23/21 11:30) Medications Given in ED Current Medications Medications Dose Ordered Sig/Caryn Route Start Time Stop Time Status Last Admin Dose Admin Methylprednisolone Sodium Succinate 80 mg ONCE ONCE IM 07/23/21 11:30 07/23/21 11:31 DC 07/23/21 11:41 80 MG Vital Signs/I&O 07/23/21 07/23/21 11:05 11:44 Temp 36.8 36.8 Pulse 77 77 Resp 16 16 B/P (MAP) 141/82 (101) 141/82 Pulse Ox 98 98 O2 Delivery Room Air Room Air Departure Communication (PCP) Patient appears to have a contact dermatitis to the chest. She states start abo ut a month ago was placed on triamcinolone 0.1% in June. She states the lesions had spread to a few areas of the right wrist. She reports itching. Denies of any oral lesions, fever. No evidence of cellulitis. Currently on Bactrim for UTI. Denies of any abdominal pain, urinary symptoms,, chest pain. rash is located bilateral chest. Does not appear to be shingles. No recent URI symptoms. States that started after being outside. Appears to be more contact. Discussed trying a higher dose of a topical steroid triamcinolone 0.5%. Apply twice daily. Was given dose of IM steroid here. She has no history of diabetes. Return precautions were discussed with patient. Outpatient follow-up with primary care physician 2 to 3 days for reevaluation. Return precaution were discussed with patient. Impression Primary Impression: Rash Disposition: 01 HOME, SELF-CARE Condition: Stable Departure-Patient Inst. Decision time for Depature: 11:17 Referrals: GUMARO HILL MD (PCP/Family) Primary Care Physician Patient Instructions: Skin Rash Scripts Triamcinolone Acetonide (Triamcinolone Acetonide 0.5% Cream) 0.5 % Cream..g. 15 GM TP BID, #2 EA Prov: MAGNOLIA SCRUGGS 07/23/21 MAGNOLIA SCRUGGS Jul 23, 2021 11:17
[2021-07-23] MEDS ORDERED: TRIA15CR TP (11:19)
[2021-07-23] MEDS ORDERED: methylPREDNISolone 40 MG/ML (Solu-MEDROL) VIAL IM ONE (11:30)
[2021-07-23 11:44] VITALS: BP 141/82
== END 2021-07-23 11:43 | disposition home or self-care (01) ==
LOC: EDUNIT# 10:38 → ER 10:40
DX: R21 Rash and other nonspecific skin eruption (principal)
CPT/HCPCS: 99284

== ENCOUNTER → 2021-08-20 | Outpatient (CLI) | payer MEDICARE ==
[~2021-08-20] MED LIST changes: +REGADENOSON 0.4 MG/5 ML SYR (LEXISCAN) IV ONE; +TRIA15CR TP
[2021-08-20] MEDS: CATHETER FLUSH 10 ML SYR IVP PRN ×2 (08:13→09:38)
[2021-08-20 09:36] VITALS: BP 181/106
--- NOTE | 2021-08-20 16:21 | STRESS TEST ---
DATE OF SERVICE: 08/20/2021 RESTING AND POST REGADENOSON TECHNETIUM-99M TETROFOSMIN SPECT CT IMAGING ORDERING PHYSICIAN: Esther Barney APRN PRIMARY PHYSICIAN: Dr. Balbuena. CLINICAL DIAGNOSES: Coronary artery disease. Baseline images were carried out after injection of 9.89 mCi of technetium-99m Tetrofosmin. This was followed by 0.4 mg regadenoson and 28 mCi of technetium-99m Tetrofosmin for stress imaging. The electrocardiogram showed sinus rhythm at baseline. It did not change significantly with the regadenoson infusion. The patient tolerated the procedure well. Review of images at rest and following stress does not indicate any distinct perfusion defects consistent with significant myocardial ischemia or infarction. Gated images show normal global left ventricular systolic function with normal regional wall motion. Left ventricular ejection fraction is calculated to be 67%. Left ventricular end-diastolic volume is 50 mL. TID is absent (1.09). CONCLUSIONS: 1. No evidence of any significant myocardial ischemia or infarction on this study. 2. Normal regional wall motion. 3. Normal global left ventricular systolic function with a calculated ejection fraction of 67%. Job ID: [id number] DocumentID: [id number] Dictated Date: 08/20/2021 12:53:26 Service Station Helper Date: 08/20/2021 16:19:04 Dictated By: ZIA LORENZO MD, MA, FACP, FACC,
== END ==
LOC: CARD 07:56
PROVIDERS: ATTEND Nurse Practitioner Family
DX: I25.10 Atherosclerotic heart disease of native coronary artery without angina pectoris (principal)
CPT/HCPCS: 78452; 93017; A9502

== ENCOUNTER 2022-01-09 01:36 | Inpatient (IN) | payer MEDICARE ==
[~2022-01-09] VITALS: Ht 160 cm; Wt 91.6 kg
[~2022-01-09 01:36] MED LIST changes: -REGADENOSON 0.4 MG/5 ML SYR (LEXISCAN) IV ONE
[2022-01-09] MEDS ORDERED: NS IV 1000 ML 1,000 ML IV SCH (02:00)
[2022-01-09 02:11] LABS: HEMATOCRIT 33 % (35-52); HEMOGLOBIN 10.3 g/dL (11.5-16.0); MEAN CORPUSCULAR HEMOGLOBIN 29 pg (25-34); MEAN CORPUSCULAR HGB CONC 32 g/dL (32-36); MEAN CORPUSCULAR VOLUME 90 fL (80-99)
[2022-01-09 02:13] LABS: BASOPHILS % (AUTO) 1 % (0-10); EOSINOPHILS # (AUTO) 0.1 10^3/uL (0.0-0.3); EOSINOPHILS % (AUTO) 2 % (0-10); LYMPHOCYTES # (AUTO) 1.7 10^3/uL (1.0-4.0); LYMPHOCYTES % (AUTO) 51 % (12-44); MONOCYTES # (AUTO) 0.2 10^3/uL (0.0-1.0); MONOCYTES % (AUTO) 7 % (0-12); NEUTROPHILS # (AUTO) 1.3 10^3/uL (1.8-7.8); NEUTROPHILS % (AUTO) 39 % (42-75); PLATELET COUNT 119 10^3/uL (130-400); WHITE BLOOD COUNT 3.3 10^3/uL (4.3-11.0)
[2022-01-09 02:17] LABS: INR 3.4 (0.8-1.4); PROTHROMBIN TIME PATIENT 34.6 SEC (12.2-14.7)
[2022-01-09 02:24] LABS: ALBUMIN 3.4 GM/DL (3.2-4.5); BILIRUBIN,TOTAL 0.5 MG/DL (0.1-1.0); CALCIUM 8.8 MG/DL (8.5-10.1); CREATININE SERUM 0.63 MG/DL (0.60-1.30); TOTAL PROTEIN 5.9 GM/DL (6.4-8.2)
--- NOTE | 2022-01-09 06:27 | ED GI ---
General Chief Complaint: Rect Problems Stated Complaint: LOWER GI BLEED, COUMADIN THERAPY Nursing Triage Note: Pt to ED 7 w/ c/o rectal bleeding x 2 days, advises it is worse tonight. Reports loose stools with clots, and dark black stool coming out, reports incontinence as well. Pt states she had a colonoscopy in [place] in October and was told she has hemmorrhoids. Source of Information: Patient (SOMEWHAT LIMITED HISTORIAN) History of Present Illness Date Seen by Provider: Jan 09, 2022 Time Seen by Provider: 01:40 Initial Comments PT ARRIVES VIA EMS FROM HOME C/O BRIGHT RED RECTAL BLEEDING FOR THE LAST 2 DAYS IS HAVING DIOMEDES RECTAL BLEEDING WITH CLOTS, AND IS BLEEDING WITHOUT PASSING ANY STOOL. INITIALLY SHE WAS PASSING LOOSE STOOLS MIXED WITH BRIGHT RED BLOOD, NOW IS JUST PASSING BLOOD CONSTANTLY SHE IS NOT HAVING PAIN WITH BM'S--JUST HAS ALOT OF SORENESS TO EXTERNAL PERIRECTAL AREA FROM WIPING FREQUENTLY AND CONSTANT IRRITATION FROM BLEEDING NO ABDOMINAL PAIN NO NAUSEA/VOMITING NO FEVER NO DIZZINESS OR SYNCOPE PT IS ON COUMADIN FOR CARDIAC ISSUES. SHE DID NOT TAKE HER DOSE TONIGHT BECAUSE OF THE BLEEDING, SHE ONLY TOOK 81 MG ASPIRIN. SHE IS NOT HAVING EXCESSIVE BRUISING, OR PETECHIAE OR BLEEDING FROM OTHER SITES. NO HISTORY OF SIMILAR. NO RECENT MEDICATION CHANGES. HAD A ROUTINE SCREENING COLONOSCOPY IN , IN [place]--WAS TOLD SHE ONLY HAD HEMORRHOIDS, OTHERWISE WAS NORMAL, AND WAS TOLD SHE WOULD NOT NEED ANY MORE COLONOSCOPIES. PCP: DR. CORBETT ( RECENTLY ESTABLISHED WITH HER, WAS A DR. HILL PT, UNTIL HIS EARLIER THIS YEAR) TIME CLOCK MECHANIC: DR. LORENZO. Allergies and Home Medications Allergies Coded Allergies: No Known Drug Allergies (Verified , 06/04/07) Patient Home Medication List Home Medication List Reviewed: Yes Acetaminophen (Acetaminophen) 500 Mg Tablet, 500-1,000 MG PO Q8H PRN for PAIN- MILD (1-4), (Reported) Entered as Reported by: ALEXIA BARAKAT on 01/21/19 1114 Atenolol (Atenolol) 25 Mg Tablet, 25 MG PO BID, (Reported) Entered as Reported by: ALEXIA BARAKAT on 01/21/19 1114 Calcium Carbonate (Calcium) 600 Mg Tablet, 600 MG PO BID, (Reported) Entered as Reported by: ALEXIA BARAKAT on 01/21/19 1114 Cholecalciferol (Vitamin D3) (Vitamin D3) 1,000 Unit Tab.chew, 3,000 UNIT PO DAILY, (Reported) Entered as Reported by: ALEXIA BARAKAT on 01/21/19 1119 Cholecalciferol (Vitamin D3) (Vitamin D3) 50,000 Unit Capsule, 50,000 UNIT PO EVERY 2 WEEKS, (Reported) Entered as Reported by: ALEXIA BARAKAT on 01/21/19 1125 Cyanocobalamin (Vitamin B-12) (Vitamin B12) 2,500 Mcg Tablet, 2,500 MCG PO DAILY, (Reported) Entered as Reported by: ALEXIA BARAKAT on 01/21/19 1120 Diphenoxylate HCl/Atropine (Lomotil 2.5-0.025 mg Tablet) 1 Each Tablet, 1 EACH PO TID PRN for DIARRHEA, (Reported) Entered as Reported by: ALEXIA BARAKAT on 01/21/19 1120 Fluoxetine HCl (Fluoxetine HCl) 10 Mg Capsule, 10 MG PO DAILY, (Reported) Entered as Reported by: NICHOLAS RENAE on 01/20/19 1814 Fluticasone Propionate (Fluticasone Propionate) 15.8 Ml [place].susp, 1 PUFF NS BID Prescribed by: MATTY CM on 05/10/21 0453 Hydrocodone Bit/Acetaminophen (Lortab 5 Mg Tablet) 1 Each Tablet, 1 TAB PO Q4- 6HR Prescribed by: CATHI MOONEY on 02/07/19 1328 Lisinopril (Lisinopril) 20 Mg Tablet, 20 MG PO DAILY Prescribed by: MATTY CM on 05/04/21 1135 [place]-3 Fatty Acids/Fish Oil (Eql Fish Oil 1,200 mg Softgel) 1 Each Capsule, 1 EACH PO BID, (Reported) Entered as Reported by: ALEXIA BARAKAT on 01/21/19 1119 Simvastatin (Simvastatin) 40 Mg Tablet, 40 MG PO HS, (Reported) Entered as Reported by: RICO SUAREZ on 02/05/19 1303 Triamcinolone Acetonide (Triamcinolone Acetonide 0.5% Cream) 0.5 % Cream..g., 15 GM TP BID Prescribed by: MAYUR LESTER on 07/23/21 1119 Vit C/E/Zn/Coppr/Lutein/Zeaxan (Preservision Areds 2 Softgel) 1 Each Capsule, 1 EACH PO BID, (Reported) Entered as Reported by: ALEXIA BARAKAT on 01/21/19 1120 Review of Systems Review of Systems Constitutional: no symptoms reported EENTM: No Symptoms Reported Respiratory: No Symptoms Reported Cardiovascular: No Symptoms Reported Gastrointestinal: See HPI; Denies Abdominal Pain, Denies Nausea; Rectal Bleeding; Denies Vomiting Genitourinary: No Symptoms Reported Musculoskeletal: no symptoms reported Skin: no symptoms reported Psychiatric/Neurological: No Symptoms Reported Endocrine: No Symptoms Reported Hematologic/Lymphatic: See HPI Past Bujxbjb-Cjquuo-Pjqtni Hx Patient Social History Tobacco Use?: No Substance use?: No Alcohol Use?: Yes Alcohol Frequency: Once in a while Pt feels they are or have been: No Immunizations Up To Date Influenza Vaccine Up-to-Date: Yes; Up-to-Date First/Initial COVID19 Vaccinat: UNKNOWN DATE Second COVID19 Vaccination [place]: UNKNOWN DATE Third COVID19 Vaccination Date: UNKNOWN DATE Seasonal Allergies Seasonal Allergies: No Past Medical History Surgeries: Yes (R THR, R ANKLE ORIF, CYST NECK, BILAT TKR, COLONOSCOPY 10/2021) Cardiac, CABG, Gallbladder, Joint Replacement, Orthopedic Respiratory: No Cardiac: Yes (SINUS NODE DYSFUCTION HX) Atrial Fibrillation, Coronary Artery Disease, Heart Murmur, High Cholesterol, Hypertension, Irregular Heartbeat, Valvular Heart Disease Neurological: No 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 Disorders: No Female 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 Disorders: Denies 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 Sexually Transmitted Disease: No HIV/AIDS: No Genitourinary: Yes Bladder Infection Gastrointestinal: Yes Gastroesophageal Reflux, Hemorrhoids, Irritable Bowel Musculoskeletal: Yes (FX R ANKLE, R Hip Replacement, Lt knee) Arthritis, Rheumatoid Arthritis, Fractures Endocrine: No HEENT: Yes Cataract Loss of Vision: Denies Hearing Impairment: Denies Cancer: No Psychosocial: Yes Depression Integumentary: No Blood Disorders: No Adverse Reaction/Blood Tranf: No Family Medical History Cardiovascular disease G8 SISTER Completed stroke 19 MOTHER G8 SISTER FH: blood disorder 19 FATHER FH: lung cancer G8 SISTER FH: ovarian cancer G8 SISTER FHx: obesity G8 SISTER G8 SISTER G8 SISTER Hypertension 19 MOTHER Heart Disease, Cancer, Hypertension, Stroke Physical Exam Vital Signs Vital Signs - First Documented 01/09/22 01:38 Temp 36.3 Pulse 68 Resp 24 B/P (MAP) 172/142 (152) Pulse Ox 97 O2 Delivery Room Air Capillary Refill : Height/Weight/BMI Height: 5'4.00" Weight: 211lbs. 0.0oz. [id number]; 36.00 BMI Method:Stated General Appearance: WD/WN, no apparent distress HEENT: No pale conjunctivae (R), No pale conjunctivae (L); other (NO BLEEDING FROM NOSE OR GUMS. ) Neck: normal inspection Respiratory: normal breath sounds, no respiratory distress, no accessory muscle use Cardiovascular: regular rate, rhythm, systolic murmur (2/6) Gastrointestinal: normal bowel sounds, non tender, soft, no organomegaly, no pulsatile mass Rectal: other (LARGE AMOUNT OF BRIGHT RED BLOOD WITH SMALL CLOTS, FROM RECTUM, ALL AROUND PERIRECTAL AREA AND IN HER BRIEF. ) Extremities: normal inspection, normal capillary refill Back: no CVA tenderness Neurologic/Psychiatric: coroner II-XII nml as tested, no motor/sensory deficits, alert, normal mood/affect, oriented x 3 Skin: normal color, warm/dry; No ecchymosis; other (NO EXCESSIVE BRUISING OR PETECHIAE. ) Progress/Results/Core Measures Results/Orders Lab Results Laboratory Tests Test 01/09/22 01:55 Range/Units White Blood Count 3.3 L 4.3-11.0 10^3/uL Red Blood Count 3.61 L 3.80-5.11 10^6/uL Hemoglobin 10.3 L 11.5-16.0 g/dL Hematocrit 33 L 35-52 % Mean Corpuscular Volume 90 80-99 fL Mean Corpuscular Hemoglobin 29 25-34 pg Mean Corpuscular Hemoglobin Concent 32 32-36 g/dL Red Cell Distribution Width 16.1 H 10.0-14.5 % Platelet Count 119 L 130-400 10^3/uL Mean Platelet Volume 11.0 9.0-12.2 fL Immature Granulocyte % (Auto) 0 % Neutrophils (%) (Auto) 39 L 42-75 % Lymphocytes (%) (Auto) 51 H 12-44 % Monocytes (%) (Auto) 7 0-12 % Eosinophils (%) (Auto) 2 0-10 % Basophils (%) (Auto) 1 0-10 % Neutrophils # (Auto) 1.3 L 1.8-7.8 10^3/uL Lymphocytes # (Auto) 1.7 1.0-4.0 10^3/uL Monocytes # (Auto) 0.2 0.0-1.0 10^3/uL Eosinophils # (Auto) 0.1 0.0-0.3 10^3/uL Basophils # (Auto) 0.0 0.0-0.1 10^3/uL Immature Granulocyte # (Auto) 0.0 0.0-0.1 10^3/uL Percent Immature Platelet Fraction 5.7 0.0-7.6 % Prothrombin Time 34.6 H 12.2-14.7 SEC INR Comment 3.4 H 0.8-1.4 Activated Partial Thromboplast Time 42 H 24-35 SEC Sodium Level 143 135-145 MMOL/L Potassium Level 4.0 3.6-5.0 MMOL/L Chloride Level 109 H 98-107 MMOL/L Carbon Dioxide Level 20 L 21-32 MMOL/L Anion Gap 14 5-14 MMOL/L Blood Urea Nitrogen 18 7-18 MG/DL Creatinine 0.63 0.60-1.30 MG/DL Estimat Glomerular Filtration Rate 86 BUN/Creatinine Ratio 29 Glucose Level 112 H 70-105 MG/DL Calcium Level 8.8 8.5-10.1 MG/DL Corrected Calcium 9.3 8.5-10.1 MG/DL Total Bilirubin 0.5 0.1-1.0 MG/DL Aspartate Amino Transf (AST/SGOT) 22 5-34 U/L Alanine Aminotransferase (ALT/SGPT) 17 0-55 U/L Alkaline Phosphatase 35 L 40-136 U/L Total Protein 5.9 L 6.4-8.2 GM/DL Albumin 3.4 3.2-4.5 GM/DL My Orders Orders - SURENDRA REED DO Ed Iv/Invasive Line Start (01/09/22 01:50) Monitor-Rhythm Ecg Trace Only (01/09/22 01:50) Cbc With Automated Diff (01/09/22 01:50) Comprehensive Metabolic Panel (01/09/22 01:50) Protime With Inr (01/09/22 01:50) Partial Thromboplastin Time (01/09/22 01:50) Ed Iv/Invasive Line Start (11/27/22 01:50) Ns Iv 1000 Ml (Sodium Chloride 0.9%) (01/09/22 02:00) Ct Abdomen/Pelvis W (01/09/22 02:44) Vital Signs/I&O 01/09/22 01:38 Temp 36.3 Pulse 68 Resp 24 B/P (MAP) 172/142 (152) Pulse Ox 97 O2 Delivery Room Air Blood Pressure Mean: 105 Progress Progress Note : Progress Note NO DETERIORATION IN PT'S CONDITION DURING ER STAY VITALS STABLE, CONTINUED TO HAVE CONSTANT, SLOW OOZING OF BLOOD FROM RECTUM DURING ER STAY. Diagnostic Imaging Comments CT ABDOMEN/PELVIS--PER [facility] VIA FAX AT [id number] -FINDINGS CONCERNING FOR SIGMOID COLITIS AND PROCTITIS, WHICH MAY BE INFECTIOUS OR INFLAMMATORY. -FINDINGS CONCERNING FOR CHOLEDOCHOLITHIASIS WITH POSSIBLE NON-CALCIFIED CALCULUS IN DISTAL COMMON BILE DUCT 8.3 X 6.5 X 5.6 MM -DIVERTICULOSIS OF ENTIRE COLON -FINDINGS CONCERNING FOR GASTRITIS. Reviewed: Reviewed by Vt Departure Communication (Admissions) [id number]--SPOKE WITH DR. ANGELO, COVERING FOR DR. CORBETT. ACCEPTS PT FOR ADMIT. WILL CONSULT SURGERY Impression Primary Impression: Rectal bleeding Additional Impressions: COUMADIN THERAPY SIGMOID COLITIS AND PROCTITIS Gastritis Diverticulosis Disposition: ADMITTED INPATIENT Condition: Stable Admissions Decision to Admit Reason: Admit from ER (General) Decision to Admit/Date: Jan 09, 2022 Time/Decision to Admit Time: 05:30 Departure-Patient Inst. Referrals: ROGELIO CORBETT DO (PCP/Family) Primary Care Physician SURENDRA REED DO Jan 09, 2022 06:27
[2022-01-09 06:30] VITALS: BP 146/64
[2022-01-09] MEDS ORDERED: D5 1/2 NS W/KCL 20 MEQ/L 1,000 ML IV ONE (06:42)
[2022-01-09] MEDS: D5 1/2 NS W/KCL 20 MEQ/L 1,000 ML IV SCH ×3 (06:47→20:56)
--- NOTE | 2022-01-09 07:02 | Diagnostic Imaging Report ---
EXAMINATION: CT abdomen and pelvis with intravenous contrast. TECHNIQUE: Multiple contiguous axial images were obtained through the abdomen and pelvis after the uneventful administration of intravenous contrast. All CT scans use one or more of the following dose optimizing techniques: automated exposure control, MA and/or KvP adjustment based on patient size and exam type or iterative reconstruction. HISTORY: Rectal bleeding COMPARISON: None available. FINDINGS: Limited views of the lower thorax are unremarkable. There are simple cysts in the liver. No suspicious liver lesions. There is mild biliary ductal dilation. Gallbladder is surgically absent. Pancreas is normal. Spleen is normal. Adrenal glands are normal. The kidneys are normal. There is no hydronephrosis. Urinary bladder is normal. There is mild rectal wall thickening. There is diverticulosis. No diverticulitis. No free fluid or air. No abdominal or pelvic lymphadenopathy. Aorta is normal in caliber without aneurysm. There are no suspicious osseus lesions. IMPRESSION: 1. Mild biliary ductal dilation. Preliminary report identified a noncalcified stone in the distal common bile duct. I am unable to visualize this. Consider MRCP for definitive confirmation. 2. Mild wall thickening and stranding about the rectum which may represent proctitis. Dictated by: Dictated on workstation # [id number]
[2022-01-09 08:03] VITALS: BP 156/73
--- NOTE | 2022-01-09 09:22 | History & Physicial ---
History of Present Illness History of Present Illness Reason for visit/HPI Pt is an 86 y/o female who is a new patient to Dr. Hassan's practice (former patient of Dr. Vallejo). She reports that she has history of Rheumatoid arthritis - has been recently started on a new biologic agent. However prior to these medication changes, she had started to have some GI tract problems. She reports that in October she had some rectal bleeding, has been to Dr. Dorian forbes or a colonoscope and she reports she was told she would never need another scope. She states that she has continued to have some rectal bleeding and last night she had "clots of blood" dropping from her rectum and blood in her depends. She reports that she does take coumadin and it has been "about a month" since her last INR - which is managed by Dr. Sadler. Date of Admission Jan 09, 2022 at 05:30 Date Seen by a Provider: Jan 09, 2022 Time Seen by a Provider: 10:00 Attending Physician Estefanía Hassan DO Admitting Physician Admitting Physician: Nina Khan MD Attending Physician: Estefanía Hassan DO Consult Dr. Greenberg Allergies and Home Medications Allergies Coded Allergies: No Known Drug Allergies (Verified , 06/04/07) Patient Home Medication List Home Medication List Reviewed: Yes (nursing reconcilliation not yet performed, pt does not have her medication ) Acetaminophen (Acetaminophen) 500 Mg Tablet, 500-1,000 MG PO Q8H PRN for PAIN- MILD (1-4), (Reported) Entered as Reported by: ALEXIA BARAKAT on 01/21/191113 Atenolol (Atenolol) 25 Mg Tablet, 25 MG PO BID, (Reported) Entered as Reported by: ALEXIA BARAKAT on 01/21/191113 Last Action: Reviewed Calcium Carbonate (Calcium) 600 Mg Tablet, 600 MG PO BID, (Reported) Entered as Reported by: ALEXIA BARAKAT on 01/21/191113 Last Action: Held Cholecalciferol (Vitamin D3) (Vitamin D3) 1,000 Unit Tab.chew, 3,000 UNIT PO DAILY, (Reported) Entered as Reported by: ALEXIA BARAKAT on 01/21/191118 Last Action: Held Cholecalciferol (Vitamin D3) (Vitamin D3) 50,000 Unit Capsule, 50,000 UNIT PO EVERY 2 WEEKS, (Reported) Entered as Reported by: ALEXIA BARAKAT on 01/21/19 112 Last Action: Held Cyanocobalamin (Vitamin B-12) (Vitamin B12) 2,500 Mcg Tablet, 2,500 MCG PO DAILY, (Reported) Entered as Reported by: ALEXIA BARAKAT on 01/21/19 112 Last Action: Held Diphenoxylate HCl/Atropine (Lomotil 2.5-0.025 mg Tablet) 1 Each Tablet, 1 EACH PO TID PRN for DIARRHEA, (Reported) Entered as Reported by: ALEXIA BARAKAT on 01/21/19 112 Last Action: Held Fluoxetine HCl (Fluoxetine HCl) 10 Mg Capsule, 10 MG PO DAILY, (Reported) Entered as Reported by: NICHOLAS RENAE on 01/20/19 181 Fluticasone Propionate (Fluticasone Propionate) 15.8 Ml [place].susp, 1 PUFF NS BID Prescribed by: MATTY CM on 05/10/21 0453 Hydrocodone Bit/Acetaminophen (Lortab 5 Mg Tablet) 1 Each Tablet, 1 TAB PO Q4- 6HR Prescribed by: CATHI MOONEY on 02/07/19 1328 Lisinopril (Lisinopril) 20 Mg Tablet, 20 MG PO DAILY Prescribed by: MATTY CM on 05/04/21 1135 [place]-3 Fatty Acids/Fish Oil (Eql Fish Oil 1,200 mg Softgel) 1 Each Capsule, 1 EACH PO BID, (Reported) Entered as Reported by: ALEXIA BARAKAT on 01/21/19 111 Last Action: Held Simvastatin (Simvastatin) 40 Mg Tablet, 40 MG PO HS, (Reported) Entered as Reported by: RICO SUAREZ on 02/05/19 1303 Last Action: Held Triamcinolone Acetonide (Triamcinolone Acetonide 0.5% Cream) 0.5 % Cream..g., 15 GM TP BID Prescribed by: MAYUR LESTER on 07/23/21 111 Last Action: Held Vit C/E/Zn/Coppr/Lutein/Zeaxan (Preservision Areds 2 Softgel) 1 Each Capsule, 1 EACH PO BID, (Reported) Entered as Reported by: ALEXIA BARAKAT on 01/21/19 1120 Last Action: Held Past Kfctzrk-Tbpdox-Ipmowr Hx Patient Social History Marrital Status: Number of living children: 4 Living Status: lives at home alone Employed/Student: retired Smoking Status: Former Smoker Former Smoker, Quit: Apr 28, 1974 2nd Hand Smoke Exposure: No Recent Hopitalizations: No Have you traveled recently?: No Alcohol Use?: No Pt feels they are or have been: No Immunizations Up To Date Date of Pneumonia Vaccine: Jan 20, 2017 Date of Influenza Vaccine: Nov 13, 2021 Seasonal Allergies Seasonal Allergies: No Surgeries Yes (R THR, R ANKLE ORIF, CYST NECK, BILAT TKR, COLONOSCOPY 10/2021) Cardiac, CABG (JIMENEZ to LAD), Gallbladder, Joint Replacement (hip), Orthopedic (ankle and hip), Tubal Ligation Respiratory No Cardiovascular Yes (SINUS NODE DYSFUCTION HX) Atrial Fibrillation, Coronary Artery Disease, Heart Murmur, High Cholesterol, Hypertension, Irregular Heartbeat, Valvular Heart Disease Neurological No 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 System Hx 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 Disorders: No Sexually Transmitted Disease: No HIV/AIDS: No Female 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 Disorders: 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 Genitourinary Yes Bladder Infection Gastrointestinal Yes Gastroesophageal Reflux, Hemorrhoids, Irritable Bowel Musculoskeletal Yes (FX R ANKLE, R Hip Replacement, Lt knee) Arthritis, Rheumatoid Arthritis, Fractures Endocrine History of Endocrine Disorders: No HEENT History of HEENT Disorders: Yes HEENT Disorders: Cataract Loss of Vision: Denies Hearing Impairment: Denies Cancer Yes Breast Psychosocial History of Psychiatric Problem: Yes Behavioral Health Disorders: Depression Integumentary History of Skin or Integumenta: No Blood Transfusions History of Blood Disorders: No Adverse Reaction to a Blood Tr: No Reviewed Nursing Assessment Reviewed/Agree w Nursing PMH: Yes Family Medical History Significant Family History: Heart Disease, Cancer, Hypertension, Stroke Other Significan Family Hx: ovarian CA, Breast CA, Lung CA, heart disease, father from stroke Family Hx: Cardiovascular disease G8 SISTER Completed stroke 19 MOTHER G8 SISTER FH: blood disorder 19 FATHER FH: lung cancer G8 SISTER FH: ovarian cancer G8 SISTER FHx: obesity G8 SISTER G8 SISTER G8 SISTER Hypertension 19 MOTHER Review of Systems Constitutional: No chills, No diaphoresis, No dizziness, No fever, No malaise, No weakness EENTM: No hearing loss, No throat pain Respiratory: No cough, No dyspnea on exertion, No short of breath Cardiovascular: No chest pain, No edema Gastrointestinal: No abdominal pain; constipation (chronic); No diarrhea, No loss of appetite; other (hematochezia with rectal pain) Genitourinary: incontinence Musculoskeletal: No back pain; joint pain Skin: no symptoms reported Psychiatric/Neurological: Denies Anxiety, Denies Depressed; Weakness All Other Systems Reviewed Negative Unless Noted: Yes Physical Exam Vital Signs Vital Signs - First Documented 01/09/22 01:38 Temp 36.3 Pulse 68 Resp 24 B/P (MAP) 172/142 (152) Pulse Ox 97 O2 Delivery Room Air Capillary Refill : Height, Weight, BMI Height: 5'4.00" Weight: 211lbs. 0.0oz. 95.410610zc; 35.78 BMI Method:Stated General Appearance: No Apparent Distress, WD/WN Eyes: Bilateral Eye Normal Inspection HEENT: PERRL/EOMI, Pharynx Normal Neck: Full Range of Motion, Non Tender, Supple Respiratory: Chest Non Tender, Lungs Clear, Normal Breath Sounds, No Accessory Muscle Use, No Respiratory Distress Cardiovascular: Regular Rate, Rhythm, Normal Peripheral Pulses, Systolic Murmur Gastrointestinal: Normal Bowel Sounds, Non Tender, Soft Rectal: Blood Streaked Stool, Tenderness (anal fissure, blood surrounding anus) Back: Normal Inspection Extremity: Normal Capillary Refill, Non Tender, No Calf Tenderness, No Pedal Edema Neurologic/Psychiatric: Alert, Oriented x3, No Motor/Sensory Deficits, Normal Mood/Affect Skin: Normal Color, Warm/Dry Lymphatic: No Adenopathy Assessment/Plan Assessment and Plan Rectal Bleeding Anemia Supratherapeutic INR Proctitis Leukopenia Thrombocytopenia Chronic Atrial fibrillation Hyperlipidemia Rheumatoid Arthritis on biologic agents Anal fissure Rectal Bleeding with Anemia and Proctitis and Anal fissure CT scan report as follows: Date of Exam:01/09/22 CT ABDOMEN/PELVIS W HISTORY: Rectal bleeding FINDINGS: Limited views of the lower thorax are unremarkable. There are simple cysts in the liver. No suspicious liver lesions. There is mild biliary ductal dilation. Gallbladder is surgically absent. Pancreas is normal. Spleen is normal. Adrenal glands are normal. The kidneys are normal. There is no hydronephrosis. Urinary bladder is normal. There is mild rectal wall thickening. There is diverticulosis. No diverticulitis. No free fluid or air. No abdominal or pelvic lymphadenopathy. Aorta is normal in caliber without aneurysm. There are no suspicious osseus lesions. IMPRESSION: 1. Mild biliary ductal dilation. Preliminary report identified a noncalcified stone in the distal common bile duct. I am unable to visualize this. Consider MRCP for definitive confirmation. 2. Mild wall thickening and stranding about the rectum which may represent proctitis. - consult has been placed to general surgical team - will order proctocort to anal tissue due to fissure. Supratherapeutic INR - check serial INR's daily - hold coumadin for now. Leukopenia with Thrombocytopenia - monitor labs - may need further follow up as outpatient. Chronic Atrial fibrillation - waiting on reconcilliation of her home medication regimen prior to restarting blood pressure or heart rate controlling medications. Hyperlipidemia - hold statins for now. Rheumatoid Arthritis on biologic agents DVT prophylaxis with SCD's holding anticoagulation due to bleeding from rectum GI prophylaxis with ppi therapy. Admission Diagnosis Rectal Bleeding Anemia Supratherapeutic INR Proctitis Leukopenia Thrombocytopenia Chronic Atrial fibrillation Hyperlipidemia Rheumatoid Arthritis on biologic agents Anal fissure Admission Status: Inpatient Order (span 2 midnights) Reason for Inpatient Admission: inpt admission for rectal bleeding, anemia NINA KHAN MD Jan 09, 2022 09:22
[2022-01-09 11:23] VITALS: BP 141/63
[2022-01-09 12:19] LABS: HEMOGLOBIN 9.7 g/dL (11.5-16.0)
[2022-01-09] MEDS: PANTOPRAZOLE 40 MG (PROTONIX) VIAL IV SCH (12:20)
[2022-01-09] MEDS: HYDROCORTISONE 2.5% CREAM (ANUSOL-HC) 30 GM TOP SCH ×2 (12:43→20:57)
--- NOTE | 2022-01-09 12:54 | Consultation - Surgery ---
KYLE RIVERO 01/09/22 1254: History of Present Illness History of Present Illness Patient Consulted On(emmanuel/time) 01/09/22 12:44 Date Seen by Provider: Jan 09, 2022 Time Seen by Provider: 09:25 History of Present Illness Patient being seen in consultation from [facility] for melena and hematochezia. 86 year old female with a past medical hx of A fib, CAD, Breast Cancer, IBS, HTN, HLD, Hemmorhoids presented to [facility] with a chief complaint of bleeding per rectum. Patient states that this problem started around six weeks ago. Patient had a colonoscopy in October in [place] for a similar issue that seemed to resolve after the colonoscopy. The colonoscopy was negative minus some hemmorhoids. Patient was told she would never need another colonoscopy. Then a couple of weeks after, she had really hard, painful bowel movement and her issues started again. Patient states she has had no abdominal pain, besides one random episode multiple weeks ago. Patient states that in the past few days it has started to get progressively worse. Initially she was having peanut butter stools that were really dark that patient was concerned was blood. It has since progressed to hematochezia with some clots passing. Patient states the only thing she has tried for this issue is lomotil BID. Patient has never had something like this happen before and has never been hospitalized for an issue like this before. Besides the aforemention episode. Patient is anti-coagulated with coumadin, but patient did not take a dose the evening before she came to the ER. Patient sees Dr. aSdler for all of her Cardiology issues. Allergies and Home Medications Allergies Coded Allergies: No Known Drug Allergies (Verified , 06/04/07) Patient Home Medication List Home Medication List Reviewed: Yes Acetaminophen (Acetaminophen) 500 Mg Tablet, 500-1,000 MG PO Q8H PRN for PAIN- MILD (1-4), (Reported) Entered as Reported by: ALEXIA BARAKAT on 01/21/191113 Atenolol (Atenolol) 25 Mg Tablet, 25 MG PO BID, (Reported) Entered as Reported by: ALEXIA BARAKAT on 01/21/191113 Last Action: Reviewed Calcium Carbonate (Calcium) 600 Mg Tablet, 600 MG PO BID, (Reported) Entered as Reported by: ALEXIA BARAKAT on 12/9/19 1114 Last Action: Held Cholecalciferol (Vitamin D3) (Vitamin D3) 1,000 Unit Tab.chew, 3,000 UNIT PO DAILY, (Reported) Entered as Reported by: ALEXIA BARAKAT on 01/21/19 111 Last Action: Held Cholecalciferol (Vitamin D3) (Vitamin D3) 50,000 Unit Capsule, 50,000 UNIT PO EVERY 2 WEEKS, (Reported) Entered as Reported by: ALEXIA BARAKAT on 01/21/19 112 Last Action: Held Cyanocobalamin (Vitamin B-12) (Vitamin B12) 2,500 Mcg Tablet, 2,500 MCG PO DAILY, (Reported) Entered as Reported by: ALEXIA BARAKAT on 01/21/19 112 Last Action: Held Diphenoxylate HCl/Atropine (Lomotil 2.5-0.025 mg Tablet) 1 Each Tablet, 1 EACH PO TID PRN for DIARRHEA, (Reported) Entered as Reported by: ALEXIA BARAKAT on 01/21/19 112 Last Action: Held Fluoxetine HCl (Fluoxetine HCl) 10 Mg Capsule, 10 MG PO DAILY, (Reported) Entered as Reported by: NICHOLAS RENAE on 01/20/19 1814 Fluticasone Propionate (Fluticasone Propionate) 15.8 Ml [place].susp, 1 PUFF NS BID Prescribed by: MATTY CM on 05/10/21 0453 Hydrocodone Bit/Acetaminophen (Lortab 5 Mg Tablet) 1 Each Tablet, 1 TAB PO Q4- 6HR Prescribed by: CATHI MOONEY on 02/07/19 1328 Lisinopril (Lisinopril) 20 Mg Tablet, 20 MG PO DAILY Prescribed by: MATTY CM on 05/04/21 1135 [place]-3 Fatty Acids/Fish Oil (Eql Fish Oil 1,200 mg Softgel) 1 Each Capsule, 1 EACH PO BID, (Reported) Entered as Reported by: ALEXIA BARAKAT on 01/21/19 111 Last Action: Held Simvastatin (Simvastatin) 40 Mg Tablet, 40 MG PO HS, (Reported) Entered as Reported by: RICO SUAREZ on 02/05/19 1303 Last Action: Held Triamcinolone Acetonide (Triamcinolone Acetonide 0.5% Cream) 0.5 % Cream..g., 15 GM TP BID Prescribed by: MAYUR LESTER on 07/23/21 1119 Last Action: Held Vit C/E/Zn/Coppr/Lutein/Zeaxan (Preservision Areds 2 Softgel) 1 Each Capsule, 1 EACH PO BID, (Reported) Entered as Reported by: ALEXIA BARAKAT on 01/21/19 1120 Last Action: Held Past Hvsulsr-Vmstcz-Aubhic Hx Patient Social History Smoking Status: Former Smoker Former Smoker, Quit: Apr 28, 1974 2nd Hand Smoke Exposure: No Recent Hopitalizations: No Alcohol Use?: No Have you traveled recently?: No Immunizations Up To Date Date of Pneumonia Vaccine: Jan 20, 2017 Date of Influenza Vaccine: Nov 13, 2021 Seasonal Allergies Seasonal Allergies: No Surgeries History of Surgeries: Yes (R THR, R ANKLE ORIF, CYST NECK, BILAT TKR, COLONOSCOPY 10/2021) Surgeries: Cardiac, CABG (JIMENEZ to LAD), Gallbladder, Joint Replacement (hip), Lumpectomy (mastectomy ), Orthopedic (ankle and hip), Tubal Ligation Respiratory History of Respiratory Disorde: No Cardiovascular History of Cardiac Disorders: Yes (SINUS NODE DYSFUCTION HX) Cardiac Disorders: Atrial Fibrillation, Coronary Artery Disease, Heart Murmur, High Cholesterol, Hypertension, Irregular Heartbeat, Valvular Heart Disease Neurological History of Neurological Disord: No 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 System Hx 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 Disorders: No Sexually Transmitted Disease: No HIV/AIDS: No Female 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 Disorders: Denies 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 Genitourinary History of Genitourinary Disor: Yes Genitourinary Disorders: Bladder Infection Gastrointestinal History of Gastrointestinal Di: Yes Gastrointestinal Disorders: Gastroesophageal Reflux, Hemorrhoids, Irritable Bowel Musculoskeletal History of Musculoskeletal Dis: Yes (FX R ANKLE, R Hip Replacement, Lt knee) Musculoskeletal Disorders: Arthritis, Rheumatoid Arthritis, Fractures Endocrine History of Endocrine Disorders: No HEENT History of HEENT Disorders: Yes HEENT Disorders: Cataract Loss of Vision: Denies Hearing Impairment: Denies Cancer History of Cancer: Yes Cancer: Breast Psychosocial History of Psychiatric Problem: Yes Behavioral Health Disorders: Depression Integumentary History of Skin or Integumenta: No Blood Transfusions History of Blood Disorders: No Adverse Reaction to a Blood Tr: No Reviewed Nursing Assessment Reviewed/Agree w Nursing PMH: Yes Family Medical History Significant Family History: Heart Disease, Cancer, Hypertension, Stroke, Other Conditions/Hx (aplastic anemia ) Family Medial History: Cardiovascular disease G8 SISTER Completed stroke 19 MOTHER G8 SISTER FH: blood disorder 19 FATHER FH: lung cancer G8 SISTER FH: ovarian cancer G8 SISTER FHx: obesity G8 SISTER G8 SISTER G8 SISTER Hypertension 19 MOTHER Review of Systems-General Constitutional: No chills, No diaphoresis EENTM: hearing loss; No blurred vision, No double vision Respiratory: No cough, No short of breath Cardiovascular: No chest pain, No palpitations Gastrointestinal: No abdominal pain, No constipation; melena (+ hematochezia ); No nausea, No vomiting Genitourinary: No discharge, No dysuria, No frequency Musculoskeletal: back pain, joint pain Skin: No change in color, No change in hair/nails Psychiatric/Neurological: Denies Anxiety, Denies Depressed Physical Exam-General Problems Physical Exam Vital Signs Vital Signs - First Documented 01/09/22 01:38 Temp 36.3 Pulse 68 Resp 24 B/P (MAP) 172/142 (152) Pulse Ox 97 O2 Delivery Room Air Capillary Refill : General Appearance: WD/WN, no apparent distress HEENT: PERRL/EOMI Neck: non-tender, supple Respiratory: chest non-tender, lungs clear, normal breath sounds, no respiratory distress, no accessory muscle use Cardiovascular: regular rate, rhythm (sounded SR at this time ), systolic murmur (blowing, radiates to carotids ) Gastrointestinal: soft, rebound (Slight LUQ tenderness and voluntary guarding ) Extremities: non-tender, no pedal edema, no calf tenderness Neurologic/Psychiatric: alert, normal mood/affect, oriented x 3 Skin: normal color, warm/dry Data Review Labs Laboratory Tests 01/09/22 01:55: White Blood Count 3.3L, Red Blood Count 3.61L, Hemoglobin 10.3L, Hematocrit 33L, Mean Corpuscular Volume 90, Mean Corpuscular Hemoglobin 29, Mean Corpuscular Hemoglobin Concent 32, Red Cell Distribution Width 16.1H, Platelet Count 119L, Mean Platelet Volume 11.0, Immature Granulocyte % (Auto) 0, Neutrophils (%) (Auto) 39L, Lymphocytes (%) (Auto) 51H, Monocytes (%) (Auto) 7, Eosinophils (%) (Auto) 2, Basophils (%) (Auto) 1, Neutrophils # (Auto) 1.3L, Lymphocytes # (Auto) 1.7, Monocytes # (Auto) 0.2, Eosinophils # (Auto) 0.1, Basophils # (Auto) 0.0, Immature Granulocyte # (Auto) 0.0, Percent Immature Platelet Fraction 5.7, Prothrombin Time 34.6H, INR Comment 3.4H, Activated Partial Thromboplast Time 42H, Sodium Level 143, Potassium Level 4.0, Chloride Level 109H, Carbon Dioxide Level 20L, Anion Gap 14, Blood Urea Nitrogen 18, Creatinine 0.63, Estimat Glomerular Filtration Rate 86, BUN/Creatinine Ratio 29, Glucose Level 112H, Calcium Level 8.8, Corrected Calcium 9.3, Total Bilirubin 0.5, Aspartate Amino Transf (AST/SGOT) 22, Alanine Aminotransferase (ALT/SGPT) 17, Alkaline Phosphatase 35L, Total Protein 5.9L, Albumin 3.4 01/09/22 12:10: Hemoglobin 9.7L, Hematocrit 30L Radiology [facility], [place] NAME: SHAWN LOYA [facility] REC#: [id number] PT STATUS: ADM IN : 1935 PHYSICIAN: SURENDRA REED DO ADMIT DATE: 01/09/22 Signed Date of Exam:01/09/22 CT ABDOMEN/PELVIS W EXAMINATION: CT abdomen and pelvis with intravenous contrast. TECHNIQUE: Multiple contiguous axial images were obtained through the abdomen and pelvis after the uneventful administration of intravenous contrast. All CT scans use one or more of the following dose optimizing techniques: automated exposure control, MA and/or KvP adjustment based on patient size and exam type or iterative reconstruction. HISTORY: Rectal bleeding COMPARISON: None available. FINDINGS: Limited views of the lower thorax are unremarkable. There are simple cysts in the liver. No suspicious liver lesions. There is mild biliary ductal dilation. Gallbladder is surgically absent. Pancreas is normal. Spleen is normal. Adrenal glands are normal. The kidneys are normal. There is no hydronephrosis. Urinary bladder is normal. There is mild rectal wall thickening. There is diverticulosis. No diverticulitis. No free fluid or air. No abdominal or pelvic lymphadenopathy. Aorta is normal in caliber without aneurysm. There are no suspicious osseus lesions. IMPRESSION: 1. Mild biliary ductal dilation. Preliminary report identified a noncalcified stone in the distal common bile duct. I am unable to visualize this. Consider MRCP for definitive confirmation. 2. Mild wall thickening and stranding about the rectum which may represent proctitis. Dictated by: Dictated on workstation # [id number] Dict: 01/09/22 0642 Trans: 01/09/22 1045 OLEG [id number] Interpreted by: SAMARA FLOYD MD Electronically signed by: SAMARA FLOYD MD 01/09/22 1045 Assessment/Plan Assessment/Plan Assessment/Plan GI Bleed Hematochezia Melena Proctitis Hemmorhoids - Unknown Internal vs External Umbilical Hernia IBS Acute Bloods Loss Anemia A Fib CAD Hx CABG Breast Cancer - Oral Chemotherapy no radiation Plan Trend H+H; Transfuse if Hgb <8 given Cardiac Hx unless otherwise stated by Cardio Stool culture if runny BM IVF Hold Anti-coags Up and Ambulating SCDs Clinical Quality Measures DVT/VTE Risk/Contraindication: Contraindications-Pharm: Other *list below* Other: defer anticoagulation due to GI bleeding JOSAFAT BERNABE DO 01/09/22 1335: History of Present Illness History of Present Illness Time Seen by Provider: 11:41 History of Present Illness Surgery asked to consult regarding GI bleed and anemia. When I saw pt she stated she had a colonoscopy in October and nothing was found. She states stool has been "dark" since then and saw bright red blood "a few days ago". She denies any rectal pain or abdominal pain at this time; st ates she had some abdominal pain 2 weeks ago that did not last very long. Denied runny stools, "more of a peanut butter consistency". Allergies and Home Medications Allergies Coded Allergies: No Known Drug Allergies (Verified , 06/04/07) Patient Home Medication List Home Medication List Reviewed: Yes Acetaminophen (Acetaminophen) 500 Mg Tablet, 500-1,000 MG PO Q8H PRN for PAIN- MILD (1-4), (Reported) Entered as Reported by: ALEXIA BARAKAT on 01/21/19 111 Atenolol (Atenolol) 25 Mg Tablet, 25 MG PO BID, (Reported) Entered as Reported by: ALEXIA BARAKAT on 01/21/19 111 Last Action: Reviewed Calcium Carbonate (Calcium) 600 Mg Tablet, 600 MG PO BID, (Reported) Entered as Reported by: ALEXIA BARAKAT on 01/21/19 1114 Last Action: Held Cholecalciferol (Vitamin D3) (Vitamin D3) 1,000 Unit Tab.chew, 3,000 UNIT PO DAILY, (Reported) Entered as Reported by: ALEXIA BARAKAT on 01/21/19 111 Last Action: Held Cholecalciferol (Vitamin D3) (Vitamin D3) 50,000 Unit Capsule, 50,000 UNIT PO EVERY 2 WEEKS, (Reported) Entered as Reported by: ALEXIA BARAKAT on 01/21/19 112 Last Action: Held Cyanocobalamin (Vitamin B-12) (Vitamin B12) 2,500 Mcg Tablet, 2,500 MCG PO DAILY, (Reported) Entered as Reported by: ALEXIA BARAKAT on 01/21/19 112 Last Action: Held Diphenoxylate HCl/Atropine (Lomotil 2.5-0.025 mg Tablet) 1 Each Tablet, 1 EACH PO TID PRN for DIARRHEA, (Reported) Entered as Reported by: ALEXIA BARAKAT on 01/21/19 112 Last Action: Held Fluoxetine HCl (Fluoxetine HCl) 10 Mg Capsule, 10 MG PO DAILY, (Reported) Entered as Reported by: NICHOLAS RENAE on 01/20/19 1814 Fluticasone Propionate (Fluticasone Propionate) 15.8 Ml [place].susp, 1 PUFF NS BID Prescribed by: MATTY CM on 05/10/21 0453 Hydrocodone Bit/Acetaminophen (Lortab 5 Mg Tablet) 1 Each Tablet, 1 TAB PO Q4- 6HR Prescribed by: CATHI MOONEY on 02/07/19 1328 Lisinopril (Lisinopril) 20 Mg Tablet, 20 MG PO DAILY Prescribed by: MATTY CM on 05/04/21 1135 [place]-3 Fatty Acids/Fish Oil (Eql Fish Oil 1,200 mg Softgel) 1 Each Capsule, 1 EACH PO BID, (Reported) Entered as Reported by: ALEXIA BARAKAT on 01/21/19 111 Last Action: Held Simvastatin (Simvastatin) 40 Mg Tablet, 40 MG PO HS, (Reported) Entered as Reported by: RICO SUAREZ on 02/05/19 1303 Last Action: Held Triamcinolone Acetonide (Triamcinolone Acetonide 0.5% Cream) 0.5 % Cream..g., 15 GM TP BID Prescribed by: MAYUR LESTER on 07/23/21 1119 Last Action: Held Vit C/E/Zn/Coppr/Lutein/Zeaxan (Preservision Areds 2 Softgel) 1 Each Capsule, 1 EACH PO BID, (Reported) Entered as Reported by: ALEXIA BARAKAT on 01/21/19 1120 Last Action: Held Past Xrotxoc-Hrzuxh-Qnptkm Hx Patient Social History Smoking Status: Former Smoker Alcohol Use?: No Surgeries History of Surgeries: Yes Surgeries: Cardiac, CABG (JIMENEZ to LAD), Gallbladder, Joint Replacement (hip), Lumpectomy (mastectomy ), Orthopedic (ankle and hip), Tubal Ligation Respiratory History of Respiratory Disorde: No Cardiovascular History of Cardiac Disorders: Yes Cardiac Disorders: Atrial Fibrillation, Coronary Artery Disease, High Cholesterol, Hypertension, Valvular Heart Disease Neurological History of Neurological Disord: No Genitourinary History of Genitourinary Disor: No Gastrointestinal History of Gastrointestinal Di: Yes Gastrointestinal Disorders: Gastroesophageal Reflux, Hemorrhoids, Irritable Bowel Musculoskeletal History of Musculoskeletal Dis: Yes Musculoskeletal Disorders: Arthritis, Rheumatoid Arthritis Endocrine History of Endocrine Disorders: No HEENT History of HEENT Disorders: Yes HEENT Disorders: Cataract Loss of Vision: Bilateral Hearing Impairment: Hard of Hearing Cancer History of Cancer: Yes Cancer: Breast Psychosocial History of Psychiatric Problem: Yes Behavioral Health Disorders: Depression Integumentary History of Skin or Integumenta: No Family Medical History Significant Family History: Heart Disease, Cancer, Hypertension, Stroke, Other Conditions/Hx (aplastic anemia ) Family Medial History: Cardiovascular disease G8 SISTER Completed stroke 19 MOTHER G8 SISTER FH: blood disorder 19 FATHER FH: lung cancer G8 SISTER FH: ovarian cancer G8 SISTER FHx: obesity G8 SISTER G8 SISTER G8 SISTER Hypertension 19 MOTHER Review of Systems-General Constitutional: No chills, No diaphoresis EENTM: hearing loss; No blurred vision, No double vision Respiratory: No cough, No short of breath Cardiovascular: No chest pain, No palpitations Gastrointestinal: No abdominal pain, No constipation; melena (+ hematochezia ); No nausea, No vomiting Genitourinary: No discharge, No dysuria, No frequency Musculoskeletal: back pain, joint pain Skin: No change in color, No change in hair/nails Psychiatric/Neurological: Denies Anxiety, Denies Depressed Physical Exam-General Problems Physical Exam General Appearance: WD/WN, no apparent distress Eyes: Bilateral Eye PERRL, Bilateral Eye EOMI HEENT: pharynx normal; No scleral icterus (R), No scleral icterus (L) Neck: non-tender, supple Respiratory: chest non-tender, lungs clear, normal breath sounds, no respiratory distress, no accessory muscle use Cardiovascular: regular rate, rhythm (sounded SR at this time ), systolic murmur (blowing, radiates to carotids ) Gastrointestinal: soft, rebound (Slight LUQ tenderness and voluntary guarding ), hernia (umbilical) Extremities: non-tender, no pedal edema, no calf tenderness Neurologic/Psychiatric: alert, normal mood/affect, oriented x 3 Skin: normal color, warm/dry Lymphatic: no adenopathy (neck, axilla or groin) Assessment/Plan Assessment/Plan Assessment/Plan GI Bleed Hematochezia Melena Proctitis Hemmorhoids - Unknown Internal vs External Umbilical Hernia IBS Acute Bloods Loss Anemia A Fib CAD Hx CABG Breast Cancer - Oral Chemotherapy no radiation Plan Trend H+H; Transfuse if Hgb <8 given Cardiac Hx unless otherwise stated by Cardio Stool culture if pt has liquid BM, may benefit from Steroid suppository IVF Hold Anti-coags Up and Ambulating SCDs Supervisory-Addendum Brief Verification & Attestation Participated in pt care: history, MDM, physical Personally performed: exam, history, MDM, supervision of care Care discussed with: Medical Student Procedures: n/a Verification and Attestation of Medical Student E/M Service A medical student performed and documented this service. I then reviewed and verified all information documented by the medical student and made modifications to such information, when appropriate. I personally performed a physical exam, medical decision making and then discussed any differences between the notes and made revisions as necessary to create one note. Josafat Bernabe , 01/09/22 , 13:44 KYLE RIVERO Jan 09, 2022 12:54 JOSAFAT BERNABE DO Jan 09, 2022 13:35
[2022-01-09 16:24] VITALS: BP 139/64
[2022-01-09 20:00] VITALS: BP 132/61
[2022-01-10] VITALS (7 sets, daily range): BP systolic 110–151; BP diastolic 55–94
[2022-01-10] MEDS: D5 1/2 NS W/KCL 20 MEQ/L 1,000 ML IV SCH ×4 (03:53→23:59)
[2022-01-10 05:55] LABS: BASOPHILS % (AUTO) 0 % (0-10); EOSINOPHILS % (AUTO) 1 % (0-10); HEMATOCRIT 27 % (35-52); HEMOGLOBIN 8.5 g/dL (11.5-16.0); LYMPHOCYTES # (AUTO) 1.3 10^3/uL (1.0-4.0); LYMPHOCYTES % (AUTO) 23 % (12-44); MEAN CORPUSCULAR HEMOGLOBIN 29 pg (25-34); MEAN CORPUSCULAR HGB CONC 32 g/dL (32-36); MEAN CORPUSCULAR VOLUME 91 fL (80-99); MEAN PLATELET VOLUME 11.4 fL (9.0-12.2); MONOCYTES # (AUTO) 0.4 10^3/uL (0.0-1.0); MONOCYTES % (AUTO) 7 % (0-12); NEUTROPHILS # (AUTO) 3.9 10^3/uL (1.8-7.8); NEUTROPHILS % (AUTO) 68 % (42-75); PLATELET COUNT 111 10^3/uL (130-400); WHITE BLOOD COUNT 5.7 10^3/uL (4.3-11.0)
[2022-01-10 06:08] LABS: INR 3.2 (0.8-1.4); PROTHROMBIN TIME PATIENT 32.8 SEC (12.2-14.7)
[2022-01-10 06:19] LABS: CALCIUM 7.7 MG/DL (8.5-10.1); CREATININE SERUM 0.55 MG/DL (0.60-1.30)
[2022-01-10] MEDS ORDERED: predniSONE 20 MG TAB PO NR (09:00)
[2022-01-10] MEDS: HYDROCORTISONE 25 MG SUPPOSITORY (ANUSOL HC) PR SCH ×2 (09:11→16:28)
[2022-01-10] MEDS: PANTOPRAZOLE 40 MG (PROTONIX) VIAL IV SCH (09:11)
[2022-01-10] MEDS ORDERED: ERGO1250 PO (09:58)
[2022-01-10] MEDS ORDERED: FISH1CAP15 PO (09:58)
[2022-01-10] MEDS ORDERED: WARF-48 PO ×2 (09:58)
[2022-01-10] MEDS ORDERED: VIT1CAPS5 PO (09:58)
[2022-01-10] MEDS ORDERED: ACET-2840 PO (09:58)
[2022-01-10] MEDS ORDERED: LETR2.5T6 PO (09:58)
[2022-01-10] MEDS ORDERED: CALC-823 PO (09:58)
[2022-01-10] MEDS ORDERED: ASPI-1238 PO (09:58)
[2022-01-10] MEDS ORDERED: CHOL10004 PO (10:00)
[2022-01-10] MEDS ORDERED: LISI20TA26 PO (10:13)
--- NOTE | 2022-01-10 11:28 | Progress Note - Surgery ---
Subjective Time Seen by a Provider: 10:18 Subjective/Events-last exam Pt seen and examined, states she has no abdominal pain. When she passes gas, "a little bit leaks out and it is blood". Her main concern is that almost everytime she has a BM it is hard and then comes out like peanut butter, "I have to wipe and wipe and wipe". She states this only started after the recent colonoscopy and never had it before that. She also states that sometimes it is "straight peanut butter and no hard stool". Review of Systems General: No Chills, No Night Sweats Pulmonary: No Dyspnea, No Cough Cardiovascular: Palpitations; No: Chest Pain Gastrointestinal: Diarrhea, Hematochezia; No: Nausea, Vomiting, Abdominal Pain Objective Exam Vital Signs Date Time Temp Pulse Resp B/P (MAP) Pulse Ox O2 Delivery O2 Flow Rate FiO2 01/10/22 11:03 36.6 71 16 137/62 (87) 96 Room Air 01/10/22 08:00 37.6 77 16 139/94 (109) 97 Room Air 01/10/22 07:14 71 01/10/22 03:42 36.7 89 16 128/60 (82) 97 Room Air 01/10/22 01:00 69 01/10/22 00:00 36.6 81 16 112/70 (84) 95 Room Air 01/09/22 20:59 Room Air 01/09/22 20:00 37.7 80 16 132/61 (84) 96 Room Air 01/09/22 19:02 85 01/09/22 16:24 37.1 78 16 139/64 (89) 95 Room Air 01/09/22 13:00 64 I & O 01/10/22 07:00 Intake Total 2760 ml Output Total 1850 ml Balance 910 ml Capillary Refill : General Appearance: No Apparent Distress, Obese HEENT: PERRL/EOMI Respiratory: Chest Non Tender, Lungs Clear, Normal Breath Sounds, No Accessory Muscle Use, No Respiratory Distress Cardiovascular: Systolic Murmur, Irregularly Irregular Gastrointestinal: soft; No distended, No guarding; hernia (umbilical) Results Lab Laboratory Tests 01/09/22 12:10: Hemoglobin 9.7L, Hematocrit 30L 01/09/22 14:08: 01/10/22 05:37: Hemoglobin 8.5L, Hematocrit 27L, White Blood Count 5.7, Red Blood Count 2.93L, Mean Corpuscular Volume 91, Mean Corpuscular Hemoglobin 29, Mean Corpuscular Hemoglobin Concent 32, Red Cell Distribution Width 16.2H, Platelet Count 111L, Mean Platelet Volume 11.4, Immature Granulocyte % (Auto) 0, Neutrophils (%) (Auto) 68, Lymphocytes (%) (Auto) 23, Monocytes (%) (Auto) 7, Eosinophils (%) (Auto) 1, Basophils (%) (Auto) 0, Neutrophils # (Auto) 3.9, Lymphocytes # (Auto) 1.3, Monocytes # (Auto) 0.4, Eosinophils # (Auto) 0.0, Basophils # (Auto) 0.0, Immature Granulocyte # (Auto) 0.0, Percent Immature Platelet Fraction 4.9, Prothrombin Time 32.8H, INR Comment 3.2H, Sodium Level 143, Potassium Level 4.0, Chloride Level 113H, Carbon Dioxide Level 22, Anion Gap 8, Blood Urea Nitrogen 8, Creatinine 0.55L, Estimat Glomerular Filtration Rate 89, BUN/Creatinine Ratio 15, Glucose Level 142H, Calcium Level 7.7L Assessment/Plan Assessment/Plan Assessment/Plan GI Bleed with Hematochezia and Melena Proctitis seen on CT Hemmorhoids Umbilical Hernia IBS Acute Blood Loss Anemia A Fib CAD Hx CABG Breast Cancer - Oral Chemotherapy no radiation Plan Trend H+H; Transfuse if Hgb <8 given Cardiac Hx unless otherwise stated by Cardio. Hold Coumadin, but also should check with Cardiology to find out how long it can be held. Stool culture if pt has liquid BM, may benefit from Steroid suppository (which was ordered by Primary care today). IVF and I encouraged pt to get up and ambulating if she does that she won't need SCDs. Pt stated she was happy about that because she was tired of laying in bed watching TV all day. Clinical Quality Measures DVT/VTE Risk/Contraindication: Contraindications-Pharm: Other *list below* Other: defer anticoagulation due to GI bleeding JOSAFAT BERNABE DO Jan 10, 2022 11:28
--- NOTE | 2022-01-10 12:34 | Progress Note ---
Subjective Date Seen by a Provider: Jan 10, 2022 Time Seen by a Provider: 08:30 Subjective/Events-last exam Fwup acute lower GI bleed, history of aortic stenosis--on coumadin, history of CAD--recent normal stress test, history of breast cancer--on letrozole. Still passing blood from rectum. Denies pain. Objective Exam Vital Signs Date Time Temp Pulse Resp B/P (MAP) Pulse Ox O2 Delivery O2 Flow Rate FiO2 01/10/22 11:03 36.6 71 16 137/62 (87) 96 Room Air 01/10/22 08:00 37.6 77 16 139/94 (109) 97 Room Air 01/10/22 08:00 96 Room Air 01/10/22 07:14 71 01/10/22 03:42 36.7 89 16 128/60 (82) 97 Room Air 01/10/22 01:00 69 01/10/22 00:00 36.6 81 16 112/70 (84) 95 Room Air 01/09/22 20:59 Room Air 01/09/22 20:00 37.7 80 16 132/61 (84) 96 Room Air 01/09/22 19:02 85 01/09/22 16:24 37.1 78 16 139/64 (89) 95 Room Air 01/09/22 13:00 64 I & O 01/10/22 07:00 Intake Total 2760 ml Output Total 1850 ml Balance 910 ml Capillary Refill : General Appearance: No Apparent Distress Neck: Supple Respiratory: Lungs Clear Cardiovascular: Regular Rate, Rhythm, Systolic Murmur Gastrointestinal: normal bowel sounds, non tender, soft Extremity: Non Tender, No Calf Tenderness, No Pedal Edema Neurologic/Psychiatric: Alert, Oriented x3 Results Lab Laboratory Tests 01/09/22 14:08: 01/10/22 05:37: White Blood Count 5.7, Red Blood Count 2.93L, Hemoglobin 8.5L, Hematocrit 27L, Mean Corpuscular Volume 91, Mean Corpuscular Hemoglobin 29, Mean Corpuscular Hemoglobin Concent 32, Red Cell Distribution Width 16.2H, Platelet Count 111L, Mean Platelet Volume 11.4, Immature Granulocyte % (Auto) 0, Neutrophils (%) (Auto) 68, Lymphocytes (%) (Auto) 23, Monocytes (%) (Auto) 7, Eosinophils (%) (Auto) 1, Basophils (%) (Auto) 0, Neutrophils # (Auto) 3.9, Lymphocytes # (Auto) 1.3, Monocytes # (Auto) 0.4, Eosinophils # (Auto) 0.0, Basophils # (Auto) 0.0, Immature Granulocyte # (Auto) 0.0, Percent Immature Platelet Fraction 4.9, Prothrombin Time 32.8H, INR Comment 3.2H, Sodium Level 143, Potassium Level 4.0, Chloride Level 113H, Carbon Dioxide Level 22, Anion Gap 8, Blood Urea Nitrogen 8, Creatinine 0.55L, Estimat Glomerular Filtration Rate 89, BUN/Creatinine Ratio 15, Glucose Level 142H, Calcium Level 7.7L Assessment/Plan Assessment/Plan Assess & Plan/Chief Complaint 1. Acute Lower GI Hemorrhage--looks like proctitis on CT scan so will add anusol HC suppository as well as oral prednisone, had colonoscopy in October with GI at [facility] and some mild internal hemorrhoids but otherwise normal exam 2. Acute Blood Loss Anemia--monitor H/H and transfuse if Hgb less than 8 due to cardiac history 3. Aortic Stenosis--follows with Dr. Sadler, coumadin on hold 4. History of CAD--had recent normal stress test Clinical Quality Measures DVT/VTE Risk/Contraindication: Contraindications-Pharm: Other *list below* Other: defer anticoagulation due to GI bleeding ROGELIO CORBETT DO Jan 10, 2022 12:34
[2022-01-10] MEDS ORDERED: SERTRALINE 50 MG (ZOLOFT) TABLET PO NR (12:45)
[2022-01-10] MEDS: HYDROCORTISONE 1% CREAM 30 GM TUBE TOP SCH (20:33)
[2022-01-10] MEDS: ATENOLOL 25 MG (TENORMIN) TAB PO SCH (20:33)
[2022-01-11] VITALS (7 sets, daily range): BP systolic 120–164; BP diastolic 64–78
[2022-01-11] MEDS: HYDROCORTISONE 25 MG SUPPOSITORY (ANUSOL HC) PR SCH ×3 (02:09→16:34)
[2022-01-11] MEDS: predniSONE 20 MG TAB PO SCH (05:42)
[2022-01-11] MEDS: D5 1/2 NS W/KCL 20 MEQ/L 1,000 ML IV SCH ×3 (05:42→22:37)
[2022-01-11 06:00] LABS: HEMATOCRIT 26 % (35-52); HEMOGLOBIN 8.1 g/dL (11.5-16.0); MEAN CORPUSCULAR HEMOGLOBIN 29 pg (25-34); MEAN CORPUSCULAR HGB CONC 31 g/dL (32-36); MEAN CORPUSCULAR VOLUME 92 fL (80-99); MEAN PLATELET VOLUME 11.1 fL (9.0-12.2); PLATELET COUNT 108 10^3/uL (130-400); WHITE BLOOD COUNT 4.2 10^3/uL (4.3-11.0)
[2022-01-11 06:16] LABS: INR 2.8 (0.8-1.4); PROTHROMBIN TIME PATIENT 29.7 SEC (12.2-14.7)
--- NOTE | 2022-01-11 08:52 | Progress Note - Surgery ---
KYLE RIVERO 01/11/22 0852: Subjective Date Seen by a Provider: Jan 11, 2022 Time Seen by a Provider: 08:47 Subjective/Events-last exam Patient sitting in bed eating. States she is not having any pains. Does state that she had a little blood on the inside of her briefs. Patient states steroid suppository did help yesterday, as she feels she is always tender right were they placed he suppository. Patient states that she didn't look at her last BM, but when she wiped she did not see any blood. Review of Systems General: No Chills, No Night Sweats HEENT: No Head Aches, No Visual Changes Pulmonary: No Dyspnea, No Cough Cardiovascular: No: Chest Pain, Palpitations Gastrointestinal: No: Nausea, Vomiting, Abdominal Pain Genitourinary: No Dysuria, No Frequency Neurological: No: Weakness, Numbness Objective Exam Vital Signs Date Time Temp Pulse Resp B/P (MAP) Pulse Ox O2 Delivery O2 Flow Rate FiO2 01/11/22 08:33 37.3 65 18 132/75 (94) 97 Room Air 01/11/22 07:00 68 01/11/22 04:11 36.8 61 20 164/72 (102) 97 Room Air 01/11/22 01:00 56 01/11/22 00:07 36.8 70 20 143/64 (90) 97 Room Air 01/10/22 20:30 95 Room Air 01/10/22 20:17 36.9 85 16 128/62 (84) 95 Room Air 01/10/22 19:30 85 01/10/22 15:57 37.4 83 18 151/65 (93) 95 Room Air 01/10/22 13:00 90 01/10/22 11:03 36.6 71 16 137/62 (87) 96 Room Air I & O 01/11/22 07:00 Intake Total 2520 ml Output Total 5550 ml Balance -3030 ml Capillary Refill : General Appearance: No Apparent Distress, Obese HEENT: PERRL/EOMI Neck: Non Tender, Supple Respiratory: Lungs Clear, Normal Breath Sounds, No Accessory Muscle Use, No Respiratory Distress Cardiovascular: Regular Rate, Rhythm, Systolic Murmur (blowing, radiates to carotids ) Gastrointestinal: non tender, soft Extremity: Non Tender, No Calf Tenderness, No Pedal Edema Neurologic/Psychiatric: Alert, Oriented x3, Normal Mood/Affect Skin: Normal Color, Warm/Dry Results Lab Laboratory Tests 01/11/22 05:29: White Blood Count 4.2L, Red Blood Count 2.83L, Hemoglobin 8.1L, Hematocrit 26L, Mean Corpuscular Volume 92, Mean Corpuscular Hemoglobin 29, Mean Corpuscular Hemoglobin Concent 31L, Red Cell Distribution Width 16.5H, Platelet Count 108L, Mean Platelet Volume 11.1, Prothrombin Time 29.7H, INR Comment 2.8H Assessment/Plan Assessment/Plan Assessment/Plan GI Bleed with Hematochezia and Melena Proctitis seen on CT Hemmorhoids Umbilical Hernia IBS Acute Blood Loss Anemia A Fib CAD Hx CABG Breast Cancer - Oral Chemotherapy no radiation Plan Trend H+H; Transfuse if Hgb <8 given Cardiac Hx unless otherwise stated by Cardio. Hold Coumadin, but also should check with Cardiology to find out how long it can be held. Stool culture if pt has liquid BM Continue steroid suppository Up and ambulating Patient's Hgb was 8.1 today, from 8.5 yesterday. Down 2 units since admission. Although some of that may be from heme-concentration on arrival. Will continue to monitor. If Hgb remains stable today and patient continues to have no blood in BM, patient can probably be D/C tomorrow. Will continue to monitor. Clinical Quality Measures DVT/VTE Risk/Contraindication: Contraindications-Pharm: Other *list below* Other: defer anticoagulation due to GI bleeding MAURISIO GREENBERG DO 01/11/22 1156: Subjective Time Seen by a Provider: 11:26 Subjective/Events-last exam Pt seen and examined, sleeping in bed but easily arousable. She denies abdominal pain, but states she is still seeing "little bits of blood". Review of Systems General: No Chills, No Night Sweats; Fatigue Pulmonary: No Dyspnea, No Cough Cardiovascular: No: Chest Pain, Palpitations Gastrointestinal: No: Nausea, Vomiting, Abdominal Pain Objective Exam General Appearance: No Apparent Distress, Obese HEENT: PERRL/EOMI Respiratory: Lungs Clear, Normal Breath Sounds, No Accessory Muscle Use, No Respiratory Distress Cardiovascular: Regular Rate, Rhythm, Systolic Murmur (blowing, radiates to carotids ) Gastrointestinal: non tender, soft Extremity: No Calf Tenderness, No Pedal Edema Neurologic/Psychiatric: Alert, Oriented x3 Skin: Pallor (???) Assessment/Plan Assessment/Plan Assessment/Plan GI Bleed with Hematochezia and Melena Acute Blood Loss Anemia Proctitis seen on CT Hemmorhoids Umbilical Hernia IBS A Fib CAD Hx CABG Breast Cancer - Oral Chemotherapy no radiation Plan Trend H+H; Transfuse if Hgb <8 given Cardiac Hx unless otherwise stated by Cardio. Hold Coumadin, but also should check with Cardiology to find out how long it can be held. Stool culture if pt has liquid BM Continue steroid suppository Up and ambulating Patient's Hgb was 8.1 today, from 8.5 yesterday. Down 2 units since admission. Although some of that may be from heme-concentration on arrival. Will continue to monitor. If Hgb remains stable today and patient continues to have no blood in BM, patient can probably be D/C tomorrow. Will continue to monitor. Supervisory-Addendum Brief Verification & Attestation Participated in pt care: history, MDM, physical Personally performed: exam, history, MDM, supervision of care Care discussed with: Medical Student Procedures: n/a Verification and Attestation of Medical Student E/M Service A medical student performed and documented this service. I then reviewed and verified all information documented by the medical student and made modifications to such information, when appropriate. I personally performed a physical exam, medical decision making and then discussed any differences between the notes and made revisions as necessary to create one note. Maurisio Greenberg , 01/11/22 , 11:56 KYLE RIVERO Jan 11, 2022 08:52 MAURISIO GREENBERG DO Jan 11, 2022 11:56
[2022-01-11] MEDS: PANTOPRAZOLE 40 MG (PROTONIX) VIAL IV SCH (09:42)
[2022-01-11] MEDS: SERTRALINE 50 MG (ZOLOFT) TABLET PO SCH (09:42)
[2022-01-11] MEDS: HYDROCORTISONE 1% CREAM 30 GM TUBE TOP SCH ×2 (09:43→20:42)
--- NOTE | 2022-01-11 12:51 | Progress Note ---
Subjective Date Seen by a Provider: Jan 11, 2022 Time Seen by a Provider: 12:49 Subjective/Events-last exam Fwup acute lower GI bleed, history of aortic stenosis--on coumadin, history of CAD--recent normal stress test, history of breast cancer--on letrozole. Still passing blood from rectum but has lessened. Objective Exam Vital Signs Date Time Temp Pulse Resp B/P (MAP) Pulse Ox O2 Delivery O2 Flow Rate FiO2 01/11/22 11:36 37.4 65 18 130/69 (89) 97 Room Air 01/11/22 08:33 37.3 65 18 132/75 (94) 97 Room Air 01/11/22 07:00 68 01/11/22 04:11 36.8 61 20 164/72 (102) 97 Room Air 01/11/22 01:00 56 01/11/22 00:07 36.8 70 20 143/64 (90) 97 Room Air 01/10/22 20:30 95 Room Air 01/10/22 20:17 36.9 85 16 128/62 (84) 95 Room Air 01/10/22 19:30 85 01/10/22 15:57 37.4 83 18 151/65 (93) 95 Room Air 01/10/22 13:00 90 I & O 01/11/22 07:00 Intake Total 2520 ml Output Total 5550 ml Balance -3030 ml Capillary Refill : General Appearance: No Apparent Distress Neck: Supple Respiratory: Lungs Clear Cardiovascular: Regular Rate, Rhythm, Systolic Murmur Gastrointestinal: normal bowel sounds, non tender, soft Extremity: No Calf Tenderness, No Pedal Edema Neurologic/Psychiatric: Alert, Oriented x3 Results Lab Laboratory Tests 01/11/22 05:29: White Blood Count 4.2L, Red Blood Count 2.83L, Hemoglobin 8.1L, Hematocrit 26L, Mean Corpuscular Volume 92, Mean Corpuscular Hemoglobin 29, Mean Corpuscular Hemoglobin Concent 31L, Red Cell Distribution Width 16.5H, Platelet Count 108L, Mean Platelet Volume 11.1, Prothrombin Time 29.7H, INR Comment 2.8H Assessment/Plan Assessment/Plan Assess & Plan/Chief Complaint 1. Acute Lower GI Hemorrhage--looks like proctitis on CT scan so added anusol HC suppository as well as oral prednisone, had colonoscopy in October with GI at [facility] and some mild internal hemorrhoids but otherwise normal exam, continue clear liquids 2. Acute Blood Loss Anemia--monitor H/H and transfuse if Hgb less than 8 due to cardiac history, will give IV iron today 3. Aortic Stenosis--follows with Dr. Sadler, coumadin on hold 4. History of CAD--had recent normal stress test Clinical Quality Measures DVT/VTE Risk/Contraindication: Contraindications-Pharm: Other *list below* Other: defer anticoagulation due to GI bleeding ROGELIO CORBETT DO Jan 11, 2022 12:51
[2022-01-11] MEDS: IRON SUCROSE 200 MG/10 ML (VENOFER) VIAL IV SCH (13:16)
[2022-01-11] MEDS: ATENOLOL 25 MG (TENORMIN) TAB PO SCH (20:41)
[2022-01-12] MEDS: HYDROCORTISONE 25 MG SUPPOSITORY (ANUSOL HC) PR SCH ×3 (01:50→17:41)
[2022-01-12 03:36] VITALS: BP 126/59
[2022-01-12] MEDS: predniSONE 20 MG TAB PO SCH (05:44)
[2022-01-12 06:36] LABS: CALCIUM 7.5 MG/DL (8.5-10.1); CREATININE SERUM 0.54 MG/DL (0.60-1.30); POTASSIUM 4.1 MMOL/L (3.6-5.0)
[2022-01-12 07:48] LABS: INR 2.2 (0.8-1.4); PROTHROMBIN TIME PATIENT 24.6 SEC (12.2-14.7)
--- NOTE | 2022-01-12 08:18 | Progress Note - Surgery ---
KYLE RIVERO 01/12/22 0818: Subjective Date Seen by a Provider: Jan 12, 2022 Time Seen by a Provider: 08:13 Subjective/Events-last exam Patient resting in bed watching the news. Was given IV iron yesterday, states she tolerated it well. Patient states she feels okay and has no major complaints today. Patient talked with Dr. Franco from [place], who did her last endoscopy. Dr. Franco is going to send the reports to Dr. Hassan. Review of Systems General: No Chills, No Night Sweats HEENT: No Head Aches, No Visual Changes Pulmonary: No Dyspnea, No Cough Cardiovascular: No: Chest Pain, Palpitations Gastrointestinal: No: Nausea, Vomiting, Abdominal Pain Genitourinary: No Dysuria, No Frequency Neurological: No: Weakness, Numbness Objective Exam Vital Signs Date Time Temp Pulse Resp B/P (MAP) Pulse Ox O2 Delivery O2 Flow Rate FiO2 01/12/22 07:00 63 01/12/22 03:36 37.1 76 18 126/59 (81) 95 Room Air 01/12/22 01:00 70 01/11/22 23:40 36.8 59 18 120/69 (86) 95 Room Air 01/11/22 20:45 96 Room Air 01/11/22 19:31 37.1 66 18 156/78 (104) 96 Room Air 01/11/22 19:00 69 01/11/22 15:28 37.0 78 20 159/78 (105) 98 Room Air 01/11/22 13:00 74 01/11/22 11:36 37.4 65 18 130/69 (89) 97 Room Air 01/11/22 08:33 37.3 65 18 132/75 (94) 97 Room Air I & O 01/12/22 07:00 Intake Total 2460 ml Output Total 2475 ml Balance -15 ml Capillary Refill : General Appearance: No Apparent Distress, Obese HEENT: PERRL/EOMI Neck: Non Tender, Supple Respiratory: Lungs Clear, Normal Breath Sounds, No Accessory Muscle Use, No Respiratory Distress Cardiovascular: Regular Rate, Rhythm, Systolic Murmur (blowing, radiates to carotids ) Gastrointestinal: non tender, soft Extremity: Non Tender, No Calf Tenderness, No Pedal Edema Neurologic/Psychiatric: Alert, Oriented x3, Normal Mood/Affect Skin: Normal Color, Warm/Dry, Pallor (???) Results Lab Laboratory Tests 01/12/22 05:48: Sodium Level 143, Potassium Level 4.1, Chloride Level 114H, Carbon Dioxide Level 19L, Anion Gap 10, Blood Urea Nitrogen 4L, Creatinine 0.54L, Estimat Glomerular Filtration Rate 90, BUN/Creatinine Ratio 7, Glucose Level 97, Calcium Level 7.5L 01/12/22 07:22: Prothrombin Time 24.6H, INR Comment 2.2H Assessment/Plan Assessment/Plan Assessment/Plan GI Bleed with Hematochezia and Melena Proctitis seen on CT Hemmorhoids Umbilical Hernia IBS Acute Blood Loss Anemia A Fib CAD Hx CABG Breast Cancer - Oral Chemotherapy no radiation Plan Trend H+H; Transfuse if Hgb <8 given Cardiac Hx unless otherwise stated by Cardio. Hold Coumadin, but also should check with Cardiology to find out how long it can be held. Stool culture if pt has liquid BM Continue steroid suppository and systemic steroids Up and ambulating No repeat Hgb this AM as of when I saw the patient. Patient has not noticed any acute bleeding. Patient is still concerned because of her stool consistency, but states that the steroids are definitely helping. We will continue to monitor. Patient will probably need repeat colonoscopy in the outpatient setting ~6 weeks from discharge, so that the intestinal mucousa has time to heal adequately. Clinical Quality Measures DVT/VTE Risk/Contraindication: Contraindications-Pharm: Other *list below* Other: defer anticoagulation due to GI bleeding MAURISIO BERNABE DO 01/12/22 1151: Subjective Time Seen by a Provider: 11:04 Subjective/Events-last exam Pt seen and examined, she denies any changes. Review of Systems General: No Chills, No Night Sweats Pulmonary: No Dyspnea, No Cough Cardiovascular: No: Chest Pain, Palpitations Gastrointestinal: No: Nausea, Vomiting, Abdominal Pain Objective Exam General Appearance: No Apparent Distress, Obese HEENT: PERRL/EOMI Respiratory: Lungs Clear, Normal Breath Sounds, No Accessory Muscle Use, No Respiratory Distress Cardiovascular: Regular Rate, Rhythm, Systolic Murmur (blowing, radiates to carotids ) Gastrointestinal: non tender, soft Assessment/Plan Assessment/Plan Assessment/Plan GI Bleed with Hematochezia and Melena Proctitis seen on CT Hemmorhoids Umbilical Hernia IBS Acute Blood Loss Anemia A Fib CAD Hx CABG Breast Cancer - Oral Chemotherapy no radiation Plan Trend H+H; Transfuse if Hgb <8 given Cardiac Hx unless otherwise stated by Cardio. Hold Coumadin, but also should check with Cardiology to find out how long it can be held. Stool culture if pt has liquid BM Continue steroid suppository and systemic steroids Up and ambulating No repeat Hgb this AM as of when I saw the patient. Patient has not noticed any acute bleeding. Patient is still concerned because of her stool consistency, but states that the steroids are definitely helping. We will continue to monitor. Patient will probably need repeat colonoscopy in the outpatient setting ~6 weeks from discharge, so that the intestinal mucousa has time to heal adequately. Supervisory-Addendum Brief Verification & Attestation Participated in pt care: history, MDM, physical Personally performed: exam, history, MDM, supervision of care Care discussed with: Medical Student Procedures: n/a Verification and Attestation of Medical Student E/M Service A medical student performed and documented this service. I then reviewed and verified all information documented by the medical student and made modifications to such information, when appropriate. I personally performed a physical exam, medical decision making and then discussed any differences between the notes and made revisions as necessary to create one note. Maurisio Bernabe , 01/12/22 , 11:51 KYLE RIVERO Jan 12, 2022 08:18 MAURISIO BERNABE DO Jan 12, 2022 11:51
[2022-01-12 08:37] VITALS: BP 129/69
[2022-01-12] MEDS: D5 1/2 NS W/KCL 20 MEQ/L 1,000 ML IV SCH ×2 (08:55→20:11)
[2022-01-12] MEDS: SERTRALINE 50 MG (ZOLOFT) TABLET PO SCH (08:56)
[2022-01-12] MEDS: PANTOPRAZOLE 40 MG (PROTONIX) TAB PO SCH (08:56)
[2022-01-12] MEDS: HYDROCORTISONE 1% CREAM 30 GM TUBE TOP SCH ×2 (08:57→20:11)
[2022-01-12 12:19] VITALS: BP 125/64
--- NOTE | 2022-01-12 12:59 | Progress Note ---
Subjective Date Seen by a Provider: Jan 12, 2022 Time Seen by a Provider: 12:57 Subjective/Events-last exam Fwup acute lower GI bleed, history of aortic stenosis--on coumadin, history of CAD--recent normal stress test, history of breast cancer--on letrozole. Still passing blood from rectum but minimal amount. Objective Exam Vital Signs Date Time Temp Pulse Resp B/P (MAP) Pulse Ox O2 Delivery O2 Flow Rate FiO2 01/12/22 12:19 37.0 60 18 125/64 (84) 95 Room Air 01/12/22 08:37 37.2 61 18 129/69 (89) 94 Room Air 01/12/22 08:00 95 Room Air 01/12/22 07:00 63 01/12/22 03:36 37.1 76 18 126/59 (81) 95 Room Air 01/12/22 01:00 70 01/11/22 23:40 36.8 59 18 120/69 (86) 95 Room Air 01/11/22 20:45 96 Room Air 01/11/22 19:31 37.1 66 18 156/78 (104) 96 Room Air 01/11/22 19:00 69 01/11/22 15:28 37.0 78 20 159/78 (105) 98 Room Air 01/11/22 13:00 74 I & O 01/12/22 07:00 Intake Total 2460 ml Output Total 2475 ml Balance -15 ml Capillary Refill : General Appearance: No Apparent Distress Neck: Supple Respiratory: Lungs Clear Cardiovascular: Regular Rate, Rhythm, Systolic Murmur Gastrointestinal: normal bowel sounds, non tender, soft Neurologic/Psychiatric: Alert, Oriented x3 Results Lab Laboratory Tests 01/12/22 05:48: Sodium Level 143, Potassium Level 4.1, Chloride Level 114H, Carbon Dioxide Level 19L, Anion Gap 10, Blood Urea Nitrogen 4L, Creatinine 0.54L, Estimat Glomerular Filtration Rate 90, BUN/Creatinine Ratio 7, Glucose Level 97, Calcium Level 7.5L 01/12/22 07:22: Prothrombin Time 24.6H, INR Comment 2.2H Assessment/Plan Assessment/Plan Assess & Plan/Chief Complaint 1. Acute Lower GI Hemorrhage--looks like proctitis on CT scan so added anusol HC suppository as well as oral prednisone, had colonoscopy in October with GI at [facility] and some mild internal hemorrhoids but otherwise normal exam, advance to cardiac diet 2. Acute Blood Loss Anemia--monitor H/H and transfuse if Hgb less than 8 due to cardiac history, CBC in AM, got iron infusion yesterday 3. Aortic Stenosis--follows with Dr. Sadler, coumadin on hold, INR down to 2.2 4. Hypertension--stable Clinical Quality Measures DVT/VTE Risk/Contraindication: Contraindications-Pharm: Other *list below* Other: defer anticoagulation due to GI bleeding ROGELIO CORBETT DO Jan 12, 2022 12:59
[2022-01-12 16:00] VITALS: BP 134/67
--- NOTE | 2022-01-12 16:11 | Physician Query Clarification ---
Physician Query-General Query to Physician: The medical record reflects the following clinical evidence: Clinical Indicators: INR on admission 3.4 had decreased to 2.2, On admission: "rectal bleeding... clots of blood dropping from her rectum". currently still passing some blood from rectum but is minimal. Risk Factor(s): On coumadin, Last INR check approx 1 month ago, Treatment: Holding coumadin, Daily INR lab monitoring, Surgical consult with no procedures performed thus far. 1. 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 Other explanation of clinical findings 3. Unable to determine (no explanation for clinical findings) Please clarify and document your clinical opinion in the progress notes and discharge summary including the definitive and/or presumptive diagnosis, (suspected or probable), related to the above clinical findings. Please include clinical findings supporting your diagnosis. Esme Gomez RN, MSN [facility] [phone] [email or web address] PHYSICIAN RESPONSE: Based on the clinical findings in the record, please respond to the query above on this document as an addendum. Physician Response: Physician Response 2--proctitis If you have questions please contact: Aeronautical Engineer: Ext: Thank you for your time and cooperation. Clinical Manager Hardware/Aeronautical Engineer This is a permanent part of the medical record ESME GOMEZ Jan 12, 2022 16:11 ROGELIO CORBETT DO Jan 12, 2022 17:14
[2022-01-12 20:00] VITALS: BP 102/66
[2022-01-12] MEDS: ATENOLOL 25 MG (TENORMIN) TAB PO SCH (20:11)
[2022-01-12 23:36] VITALS: BP 144/73
[2022-01-13] MEDS: HYDROCORTISONE 25 MG SUPPOSITORY (ANUSOL HC) PR SCH ×2 (01:32→09:04)
[2022-01-13 03:45] VITALS: BP 139/56
[2022-01-13] MEDS: predniSONE 20 MG TAB PO SCH (05:33)
[2022-01-13 05:53] LABS: HEMATOCRIT 26 % (35-52); HEMOGLOBIN 8.1 g/dL (11.5-16.0); MEAN CORPUSCULAR HEMOGLOBIN 29 pg (25-34); MEAN CORPUSCULAR HGB CONC 31 g/dL (32-36); MEAN CORPUSCULAR VOLUME 92 fL (80-99); MEAN PLATELET VOLUME 11.3 fL (9.0-12.2); PLATELET COUNT 122 10^3/uL (130-400)
[2022-01-13 06:25] LABS: INR 1.3 (0.8-1.4)
--- NOTE | 2022-01-13 07:47 | Progress Note ---
MAYO MORELAND 01/13/22 0747: Subjective Date Seen by a Provider: Jan 13, 2022 Time Seen by a Provider: 07:10 Subjective/Events-last exam 86 F on day 4 of admission for acute LGIB. Pt resting comfortably in bed w/o any complaints. Pt was able to tolerate food twice yesterday but has not had a BM s julian. Claims decrease in bloody discharge from rectum when passing flatus compared to yesterday. Received and iron transfusion yesterday, tolerated well. Denies any pain, fever, chills, SOB, n/v. Review of Systems General: No Chills, No Night Sweats HEENT: No Head Aches, No Dysphasia Pulmonary: No Dyspnea, No Cough Cardiovascular: No: Chest Pain, Palpitations Gastrointestinal: No: Nausea, Vomiting, Abdominal Pain Genitourinary: No Dysuria; Frequency Musculoskeletal: leg pain, foot pain Neurological: No: Weakness, Confusion Objective Exam Last Set of Vital Signs Vital Signs Date Time Temp Pulse Resp B/P (MAP) Pulse Ox O2 Delivery O2 Flow Rate FiO2 01/13/22 03:45 36.5 67 16 139/56 (83) 95 Room Air Capillary Refill : I&O Intake and Output 01/13/22 00:00 Intake Total 2340 ml Output Total 2200 ml Balance 140 ml Intake Oral 2340 ml Output Urine Total 2200 ml # Voids 5 General: Alert, Oriented X3 HEENT: Atraumatic, EOMI Neck: Supple Lungs: Clear to Auscultation, Normal Air Movement Heart: Regular Rate, Other (murmur present from aortic stenosis) Abdomen: Normal Bowel Sounds, Soft, No Tenderness Extremities: No Clubbing, Normal Pulses Skin: No Rashes, No Significant Lesion Neuro: Normal Speech, Normal Tone Psych/Mental Status: Mental Status NL, Mood NL Results Lab Laboratory Tests 01/13/22 05:24: White Blood Count 5.0, Red Blood Count 2.84L, Hemoglobin 8.1L, Hematocrit 26L, Mean Corpuscular Volume 92, Mean Corpuscular Hemoglobin 29, Mean Corpuscular Hemoglobin Concent 31L, Red Cell Distribution Width 16.8H, Platelet Count 122L, Mean Platelet Volume 11.3, Prothrombin Time 17.0H, INR Comment 1.3 Assessment/Plan Assessment/Plan Assess & Plan/Chief Complaint 1. Acute Lower GI Hemorrhage--continue anusol HC suppository as well as oral prednisone, continue on cardiac diet 2. Acute Blood Loss Anemia-- one iron transfusion today prior to discharge 3. Aortic Stenosis--follows with Dr. Sadler, coumadin on hold, INR down to 1.2, f/u next Monday with labs for possible restart of anti-coag therapy 4. Hypertension--stable Plans to discharge home later this afternoon Clinical Quality Measures DVT/VTE Risk/Contraindication: Contraindications-Pharm: Other *list below* Other: defer anticoagulation due to GI bleeding ROGELIO CORBETT DO 01/13/22 1227: Supervisory-Addendum Brief Verification & Attestation Participated in pt care: history, physical Personally performed: exam, history, supervision of care Care discussed with: Medical Student Procedures: n/a Results interpretation: Verified all documentation Verification and Attestation of Medical Student E/M Service A medical student performed and documented this service in my presence. I reviewed and verified all information documented by the medical student and made modifications to such information, when appropriate. I personally performed the physical exam and medical decision making. Rogelio Corbett, Jan 13, 2022,12:27 See DC summary. MAYO MORELAND Jan 13, 2022 07:47 ROGELIO CORBETT DO Jan 13, 2022 12:27
[2022-01-13 08:06] VITALS: BP 144/71
--- NOTE | 2022-01-13 08:55 | Progress Note - Surgery ---
AUSTINLUZALDO Tariq 01/13/22 0855: Subjective Date Seen by a Provider: Jan 13, 2022 Time Seen by a Provider: 08:49 Subjective/Events-last exam Pt is sitting up in bed eating comfortably. Pt notes that she woke up this morning with dark blood stains in her underwear but notes improvement from yesterday. Per nurse, pt is still having dark blood with wiping but notes improvement overall. Pt has been tolerating diet well and has been ambulating to restroom without issue. Pt has no complaints at this time. Pt denies SOB, CP, MONTALVO, lightheadedness, abd pain, nausea, and vomiting. Review of Systems General: No Chills, No Appetite HEENT: No Head Aches, No Visual Changes Pulmonary: No Dyspnea, No Cough Cardiovascular: No: Chest Pain, Lt Headedness Gastrointestinal: No: Nausea, Vomiting, Abdominal Pain Genitourinary: No Dysuria, No Hematuria Musculoskeletal: No: neck pain, shoulder pain Neurological: No: Weakness, Numbness Objective Exam Vital Signs Date Time Temp Pulse Resp B/P (MAP) Pulse Ox O2 Delivery O2 Flow Rate FiO2 01/13/22 08:06 36.6 69 18 144/71 (95) 93 Room Air 01/13/22 07:00 59 01/13/22 03:45 36.5 67 16 139/56 (83) 95 Room Air 01/13/22 01:00 63 01/12/22 23:36 36.5 70 16 144/73 (96) 95 Room Air 01/12/22 20:58 96 Room Air 01/12/22 20:00 36.9 74 16 102/66 (78) 97 Room Air 01/12/22 19:00 37.2 01/12/22 19:00 77 01/12/22 16:00 37.2 73 16 134/67 (89) 96 Room Air 01/12/22 13:00 72 01/12/22 12:19 37.0 60 18 125/64 (84) 95 Room Air I & O 01/13/22 07:00 Intake Total 2140 ml Output Total 2200 ml Balance -60 ml Capillary Refill : General Appearance: No Apparent Distress, Obese HEENT: PERRL/EOMI, Moist Mucous Membranes Neck: Normal Inspection, Supple Respiratory: Lungs Clear, No Accessory Muscle Use, No Respiratory Distress Cardiovascular: Regular Rate, Rhythm, Systolic Murmur Gastrointestinal: non tender, soft Extremity: Normal Inspection, No Calf Tenderness, No Pedal Edema Neurologic/Psychiatric: Alert, Oriented x3 Skin: Normal Color, Warm/Dry, Pallor (???) Lymphatic: No Adenopathy Results Lab Laboratory Tests 01/13/22 05:24: White Blood Count 5.0, Red Blood Count 2.84L, Hemoglobin 8.1L, Hematocrit 26L, Mean Corpuscular Volume 92, Mean Corpuscular Hemoglobin 29, Mean Corpuscular Hemoglobin Concent 31L, Red Cell Distribution Width 16.8H, Platelet Count 122L, Mean Platelet Volume 11.3, Prothrombin Time 17.0H, INR Comment 1.3 Assessment/Plan Assessment/Plan Assessment/Plan 1. Acute Lower GI Hemorrhage 2. Acute Blood Loss Anemia 3. Aortic Stenosis 4. Hypertension Hgb stable from yesterday, continue to monitor and transfuse if <8 INR improved to 1.3 from 2.2 yesterday, defer to cardiology on coumadin hold Clinical Quality Measures DVT/VTE Risk/Contraindication: Contraindications-Pharm: Other *list below* Other: defer anticoagulation due to GI bleeding JOSAFAT BERNABE DO 01/13/22 1159: Subjective Time Seen by a Provider: 10:21 Subjective/Events-last exam Pt seen and examined, no new complaints. She still thinks she is seeing some "dark blood" with BMs. Tolerating diet and Hg has remained stable. Review of Systems General: No Chills HEENT: No Head Aches, No Visual Changes Pulmonary: No Dyspnea, No Cough Cardiovascular: No: Chest Pain Gastrointestinal: Melena; No: Nausea, Vomiting, Abdominal Pain Genitourinary: No Dysuria, No Hematuria Objective Exam General Appearance: No Apparent Distress (good mood and affect), Obese HEENT: PERRL/EOMI, Moist Mucous Membranes Respiratory: Lungs Clear, Normal Breath Sounds, No Accessory Muscle Use, No Respiratory Distress Cardiovascular: Regular Rate, Rhythm, Systolic Murmur Gastrointestinal: non tender, soft Extremity: No Pedal Edema Neurologic/Psychiatric: Alert, Oriented x3 Skin: Pallor (???) Assessment/Plan Assessment/Plan Assessment/Plan 1. Acute Lower GI Hemorrhage 2. Acute Blood Loss Anemia 3. Aortic Stenosis 4. Hypertension Hgb stable from yesterday, continue to monitor and transfuse if <8, INR improved to 1.3 from 2.2 yesterday, defer to cardiology on coumadin hold Continue the suppositories with steroid and I will see pt as an outpt for possible Flex sigmoidoscopy to work up her proctitis. Supervisory-Addendum Brief Verification & Attestation Participated in pt care: history, MDM, physical Personally performed: exam, history, MDM, supervision of care Care discussed with: Medical Student Procedures: n/a Verification and Attestation of Medical Student E/M Service A medical student performed and documented this service. I then reviewed and verified all information documented by the medical student and made modifications to such information, when appropriate. I personally performed a physical exam, medical decision making and then discussed any differences between the notes and made revisions as necessary to create one note. Josafat Bernabe , 01/13/22 , 11:59 ALDO VARGAS Jan 13, 2022 08:55 JOSAFAT BERNABE DO Jan 13, 2022 11:59
[2022-01-13] MEDS: IRON SUCROSE 200 MG/10 ML (VENOFER) VIAL IV SCH (09:03)
[2022-01-13] MEDS: PANTOPRAZOLE 40 MG (PROTONIX) TAB PO SCH (09:03)
[2022-01-13] MEDS: SERTRALINE 50 MG (ZOLOFT) TABLET PO SCH (09:03)
[2022-01-13] MEDS: HYDROCORTISONE 1% CREAM 30 GM TUBE TOP SCH (09:04)
[2022-01-13 11:26] VITALS: BP 125/57
[2022-01-13] MEDS ORDERED: PRD20T PO (12:19)
[2022-01-13] MEDS ORDERED: HYDR25SU28 RC (12:19)
[2022-01-13 12:40] VITALS: BP 125/57
--- NOTE | 2022-01-16 14:46 | Discharge Summary ---
Diagnosis/Chief Complaint Date of Admission Jan 09, 2022 at 05:30 Date of Discharge Jan 13, 2022 at 14:20 Discharge Date: Jan 13, 2022 Discharge Diagnosis 1. Acute Lower GI Hemorrhage/Proctitis--continue anusol HC suppository as well as oral prednisone, continue on cardiac diet 2. Acute Blood Loss Anemia-- one iron transfusion today prior to discharge 3. Aortic Stenosis--follows with Dr. Sadler, coumadin on hold, INR down to 1.2, f/u next Monday with labs for possible restart of anti-coag therapy 4. Hypertension--stable 5. Elevated PT/INR---back to normal Discharge Summary Hospital Course Was the Problem List Reviewed?: Yes Hospital Course This is a 86 year old female who takes warfarin for aortic stenosis who presente d to the emergency room with bright red rectal bleeding. Her hemoglobin was 10.3 and did drop and stabilize at 8.1 with no blood transfusion required. Her PT/INR were elevated at 34.6 and 3.4 on admit but had decreased to 17 and 1.3 by discharge with holding of her warfarin. She had just had a colonoscopy with Dr. Alarcon in [place], [place], in October which showed some internal hemorrhoids and diverticulosis but was otherwise normal. Her CT scan showed probable proctitis so she was started on Anusol HC suppositories as well as oral prednisone. Her rectal bleeding improved after starting these meds and she was advanced from clear liquids to a regular diet prior to discharge with no increase in her rectal bleeding. She was given IV iron prior to discharge and will be discharged home and continue to hold her warfarin. She will repeat a CBC in 4 days and see me in 5 days to discuss resuming her warfarin. Procedures None. Discharge Physical Examination Allergies: Coded Allergies: No Known Drug Allergies (Verified , 06/04/07) Vitals & I&Os Vital Signs Date Time Temp Pulse Resp B/P (MAP) Pulse Ox O2 Delivery O2 Flow Rate FiO2 01/13/22 13:00 64 01/13/22 12:40 37.0 18 125/57 92 Room Air General Appearance: Alert, Oriented X3 Respiratory: Clear to Auscultation Cardiovascular: Regular Rate Abdominal: Normal Bowel Sounds, Soft, No Tenderness Extremities: No Clubbing, No Cyanosis, No Edema Psych/Mental Status: Mental Status NL Discharge Home Medications Reviewed and agree with Discharge Medication list on patient's Discharge Instruction sheet Instructions to Patient/Family Please see electronic discharge instructions given to patient. Clinical Quality Measures DVT/VTE Risk/Contraindication: Contraindications-Pharm: Other *list below* Other: defer anticoagulation due to GI bleeding ROGELIO CORBETT DO Jan 16, 2022 14:46
== END 2022-01-13 14:20 | disposition home or self-care (01) | DRG 378 ==
LOC: EDUNIT# 01:36 → ER 01:36 → 4TH 05:30
PROVIDERS: ADMIT Family Medicine; ATTEND Family Medicine
DX: K92.1 Melena (principal); D62 Acute posthemorrhagic anemia; I48.20 Chronic atrial fibrillation, unspecified; K62.89 Other specified diseases of anus and rectum; I35.0 Nonrheumatic aortic (valve) stenosis; I10 Essential (primary) hypertension; Z79.01 Long term (current) use of anticoagulants; I25.10 Atherosclerotic heart disease of native coronary artery without angina pectoris; K21.9 Gastro-esophageal reflux disease without esophagitis; K58.9 Irritable bowel syndrome, unspecified; M19.90 Unspecified osteoarthritis, unspecified site; M06.9 Rheumatoid arthritis, unspecified; F32.A Depression, unspecified; D72.819 Decreased white blood cell count, unspecified; D69.6 Thrombocytopenia, unspecified; K60.2 Anal fissure, unspecified; E78.00 Pure hypercholesterolemia, unspecified; K29.70 Gastritis, unspecified, without bleeding; K57.90 Diverticulosis of intestine, part unspecified, without perforation or abscess without bleeding; Z95.1 Presence of aortocoronary bypass graft; C50.919 Malignant neoplasm of unspecified site of unspecified female breast
CPT/HCPCS: 36415; 74177; 80048; 80053; 82728; 83540; 83550; 85014; 85018; 85025; 85027; 85610; 85730; 93041

== ENCOUNTER 2022-05-10 13:45 | Outpatient (RCR) | payer MEDICARE ==
[~2022-05-10 13:45] MED LIST changes: +ACET-2840 PO; +ASPI-1238 PO; +CALC-823 PO; +CHOL10004 PO; +ERGO1250 PO; +FISH1CAP15 PO; +HYDR25SU28 RC; +LETR2.5T6 PO; +PRD20T PO; +VIT1CAPS5 PO
== END 2022-05-13 | disposition home or self-care (01) ==
PROVIDERS: ATTEND Allergy & Immunology
DX: M25.512 Pain in left shoulder (principal); M25.511 Pain in right shoulder; I10 Essential (primary) hypertension

== ENCOUNTER 2022-05-18 13:01 | Outpatient (RCR) | payer MEDICARE ==
[2022-05-30] MEDS ORDERED: FLUO10CA33 PO (11:01)
[2022-05-30] MEDS ORDERED: PREVAGEN PO (11:01)
[2022-05-30] MEDS ORDERED: CALC-250 PO (11:01)
[2022-05-30] MEDS ORDERED: RIVA15TA PO (11:01)
[2022-05-30] MEDS ORDERED: VIT1CAPS44 PO (11:01)
[2022-05-30] MEDS ORDERED: LETR2.5T6 PO (11:01)
[2022-06-01] MEDS ORDERED: PANT40TA2 PO (12:55)
== END 2022-06-12 | disposition home or self-care (01) ==
PROVIDERS: ATTEND Allergy & Immunology
DX: M25.512 Pain in left shoulder (principal); M25.511 Pain in right shoulder; M54.2 Cervicalgia; I10 Essential (primary) hypertension

== ENCOUNTER 2022-05-29 13:08 | Observation (INO) | payer MEDICARE ==
[~2022-05-29] VITALS: Ht 160 cm; Wt 84.0 kg
[2022-05-29 13:45] LABS: BASOPHILS % (AUTO) 1 % (0-10); EOSINOPHILS % (AUTO) 1 % (0-10); HEMATOCRIT 28 % (35-52); HEMOGLOBIN 8.5 g/dL (11.5-16.0); LYMPHOCYTES # (AUTO) 1.4 10^3/uL (1.0-4.0); LYMPHOCYTES % (AUTO) 37 % (12-44); MEAN CORPUSCULAR HEMOGLOBIN 25 pg (25-34); MEAN CORPUSCULAR HGB CONC 31 g/dL (32-36); MEAN CORPUSCULAR VOLUME 83 fL (80-99); MEAN PLATELET VOLUME 11.5 fL (9.0-12.2); MONOCYTES # (AUTO) 0.3 10^3/uL (0.0-1.0); MONOCYTES % (AUTO) 8 % (0-12); NEUTROPHILS % (AUTO) 54 % (42-75); PLATELET COUNT 157 10^3/uL (130-400); WHITE BLOOD COUNT 3.7 10^3/uL (4.3-11.0)
--- NOTE | 2022-05-29 13:49 | ED GI ---
General Stated Complaint: RECTAL BLEEDING Source of Information: Patient Exam Limitations: No Limitations History of Present Illness Date Seen by Provider: May 29, 2022 Time Seen by Provider: 13:22 Initial Comments 86-year-old female presents to the ED with complaints of generalized weakness for the last couple days and black liquid stools for the last couple of days. She reports she was admitted last December for colitis and rectal bleeding. She states she has chronic diarrhea, that has not changed, but now it is black in color. She is unable to quantify the number of black stools. She is unsure if she is passing clots. She reports she had normal colored bowel movements few days ago. She denies fevers, abdominal pain, nausea, vomiting. Reports shortness of air and weakness with exertion. Also reports upper back pain between shoulder blades with exertion. She takes Xarelto. She was on warfarin when she had the previous GI bleed, she was switched to Xarelto 1 to 2 months ago. Allergies and Home Medications Allergies Coded Allergies: No Known Drug Allergies (Verified , 06/04/07) Patient Home Medication List Home Medication List Reviewed: Yes Acetaminophen (Tylenol 8 Hour) 650 Mg Tablet.er, 650-1,300 MG PO Q8H PRN for PAIN-MILD (1-4), (Reported) Entered as Reported by: ALEXIA BARAKAT on 01/10/22 09 Atenolol (Atenolol) 25 Mg Tablet, 12.5 MG PO BID, (Reported) Entered as Reported by: ALEXIA BARAKAT on 01/21/19 1114 Calcium Carbonate (Calcium) 500 Mg Calcium (1250 Mg) Tablet, 500 MG PO DAILY, (Reported) Entered as Reported by: ALEXIA BARAKAT on 01/10/22957 Cholecalciferol (Vitamin D3) (Vitamin D3) 25 Mcg (1000 Unit) Tablet, 75 MCG PO DAILY, (Reported) Entered as Reported by: ALEXIA BARAKAT on 01/10/22 1000 Ergocalciferol (Vitamin D2) (Vitamin D2) 1,250 Mcg (36616 Unit) Capsule, 1,250 MCG PO 2X MONTHLY, (Reported) Entered as Reported by: ALEXIA BARAKAT on 01/10/22 09 Fluoxetine HCl (Fluoxetine HCl) 10 Mg Capsule, 10 MG PO DAILY, (Reported) Entered as Reported by: NICHOLAS RENAE on 01/20/19 1814 Hydrocortisone Acetate (Anusol-Hc) 25 Mg Supp.rect, 25 MG RC BID Prescribed by: ROGELIO CORBETT on 01/13/22 1219 Letrozole (Letrozole) 2.5 Mg Tablet, 2.5 MG PO DAILY, (Reported) Entered as Reported by: ALEXIA BARAKAT on 01/10/22 0958 Lisinopril (Lisinopril) 20 Mg Tablet, 20 MG PO HS, (Reported) Entered as Reported by: ALEXIA BARAKAT on 01/10/22 1013 Prednisone (Prednisone) 20 Mg Tab, 20 MG PO DAILY Prescribed by: ROGELIO CORBETT on 01/13/22 1219 Vit A/C/E/Zinc/Co (Preservision Areds Softgel) 14,320-226 Capsule, 1 CAP PO BID, (Reported) Entered as Reported by: ALEXIA BARAKAT on 01/10/22 0958 Review of Systems Review of Systems Constitutional: see HPI Past Ecdpmdi-Zqtrmp-Arkvjz Hx Immunizations Up To Date First/Initial COVID19 Vaccinat: UNKNOWN DATE Second COVID19 Vaccination Kole: UNKNOWN DATE Third COVID19 Vaccination Date: UNKNOWN DATE Seasonal Allergies Seasonal Allergies: No Past Medical History Surgeries: Yes Cardiac, CABG, Gallbladder, Joint Replacement, Lumpectomy, Orthopedic, Tubal Ligation Respiratory: No Cardiac: Yes Atrial Fibrillation, Coronary Artery Disease, High Cholesterol, Hypertension, Valvular Heart Disease Neurological: No 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 Disorders: No Female 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 Disorders: Denies 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 History: Menopausal Sexually Transmitted Disease: No HIV/AIDS: No Genitourinary: No Bladder Infection Gastrointestinal: Yes Gastroesophageal Reflux, Hemorrhoids, Irritable Bowel Musculoskeletal: Yes Arthritis, Rheumatoid Arthritis Endocrine: No HEENT: Yes Cataract Loss of Vision: Bilateral Hearing Impairment: Hard of Hearing Cancer: Yes Breast Psychosocial: Yes Depression Integumentary: No Blood Disorders: No Adverse Reaction/Blood Tranf: No Family Medical History Cardiovascular disease G8 SISTER Completed stroke 19 MOTHER G8 SISTER FH: blood disorder 19 FATHER FH: lung cancer G8 SISTER FH: ovarian cancer G8 SISTER FHx: obesity G8 SISTER G8 SISTER G8 SISTER Hypertension 19 MOTHER Heart Disease, Cancer, Hypertension, Stroke, Other Conditions/Hx ovarian CA, Breast CA, Lung CA, heart disease, father from stroke Physical Exam Vital Signs Vital Signs - First Documented 05/29/22 13:15 Temp 36.7 Pulse 75 Resp 18 B/P (MAP) 118/66 (83) Pulse Ox 98 O2 Delivery Room Air Capillary Refill : Height/Weight/BMI Height: 5'4.00" Weight: 211lbs. 0.0oz. 95.036919it; 35.78 BMI Method:Stated General Appearance: WD/WN, no apparent distress HEENT: pale conjunctivae (R), pale conjunctivae (L) Neck: supple, normal inspection Respiratory: lungs clear, normal breath sounds, no respiratory distress, no accessory muscle use Cardiovascular: regular rate, rhythm, systolic murmur Gastrointestinal: normal bowel sounds, non tender, soft Rectal: black stool (Dark red), heme positive stool Extremities: normal range of motion, normal inspection Back: normal inspection, other (No tenderness to palpation) Neurologic/Psychiatric: alert, normal mood/affect Skin: warm/dry, pallor Progress/Results/Core Measures Results/Orders Lab Results Laboratory Tests Test 05/29/22 13:39 05/29/22 13:47 05/29/22 13:56 Range/Units White Blood Count 3.7 L 4.3-11.0 10^3/uL Red Blood Count 3.34 L 3.80-5.11 10^6/uL Hemoglobin 8.5 L 11.5-16.0 g/dL Hematocrit 28 L 35-52 % Mean Corpuscular Volume 83 80-99 fL Mean Corpuscular Hemoglobin 25 25-34 pg Mean Corpuscular Hemoglobin Concent 31 L 32-36 g/dL Red Cell Distribution Width 17.0 H 10.0-14.5 % Platelet Count 157 130-400 10^3/uL Mean Platelet Volume 11.5 9.0-12.2 fL Immature Granulocyte % (Auto) 0 % Neutrophils (%) (Auto) 54 42-75 % Lymphocytes (%) (Auto) 37 12-44 % Monocytes (%) (Auto) 8 0-12 % Eosinophils (%) (Auto) 1 0-10 % Basophils (%) (Auto) 1 0-10 % Neutrophils # (Auto) 2.0 1.8-7.8 10^3/uL Lymphocytes # (Auto) 1.4 1.0-4.0 10^3/uL Monocytes # (Auto) 0.3 0.0-1.0 10^3/uL Eosinophils # (Auto) 0.0 0.0-0.3 10^3/uL Basophils # (Auto) 0.0 0.0-0.1 10^3/uL Immature Granulocyte # (Auto) 0.0 0.0-0.1 10^3/uL Sodium Level 143 135-145 MMOL/L Potassium Level 4.2 3.6-5.0 MMOL/L Chloride Level 108 H 98-107 MMOL/L Carbon Dioxide Level 24 21-32 MMOL/L Anion Gap 11 5-14 MMOL/L Blood Urea Nitrogen 20 H 7-18 MG/DL Creatinine 0.68 0.60-1.30 MG/DL Estimat Glomerular Filtration Rate 85 BUN/Creatinine Ratio 29 Glucose Level 105 70-105 MG/DL Calcium Level 8.9 8.5-10.1 MG/DL Corrected Calcium 9.3 8.5-10.1 MG/DL Total Bilirubin 0.4 0.1-1.0 MG/DL Aspartate Amino Transf (AST/SGOT) 14 5-34 U/L Alanine Aminotransferase (ALT/SGPT) 12 0-55 U/L Alkaline Phosphatase 26 L 40-136 U/L Total Protein 5.8 L 6.4-8.2 GM/DL Albumin 3.5 3.2-4.5 GM/DL Magnesium Level 2.0 1.6-2.4 MG/DL Troponin I < 0.028 <0.028 NG/ML Prothrombin Time 17.7 H 12.2-14.7 SEC INR Comment 1.4 0.8-1.4 Activated Partial Thromboplast Time 43 H 24-35 SEC My Orders Orders - ESVIN KATZ APRN Cbc With Automated Diff (05/29/22 13:35) Comprehensive Metabolic Panel (05/29/22 13:35) Fecal Occult Bedside (05/29/22 13:35) Magnesium (05/29/22 13:38) Chest 1 View, Ap/Pa Only (05/29/22 13:38) Ekg Tracing (05/29/22 13:38) Monitor-Rhythm Ecg Trace Only (05/29/22 13:38) Troponin I Yue (05/29/22 13:38) Ct Abdomen/Pelvis W (05/29/22 13:38) Protime With Inr (05/29/22 13:55) Partial Thromboplastin Time (05/29/22 13:55) Iohexol Injection (Omnipaque 350 Mg/Ml 1 (05/29/22 14:30) Received Contrast (Hold Metformin- Contr (05/29/22 14:30) Ns (Ivpb) (Sodium Chloride 0.9% Ivpb Bag (05/29/22 14:30) Ed Iv/Invasive Line Start (05/29/22 14:41) Ns Iv 1000 Ml (Sodium Chloride 0.9%) (05/29/22 14:45) Ed Admission (Communication) (05/29/22 15:35) Medications Given in ED Current Medications Medications Dose Ordered Sig/Caryn Route Start Time Stop Time Status Last Admin Dose Admin Iohexol 100 ml ONCE ONCE IV 05/29/22 14:30 05/29/22 14:31 DC 05/29/22 14:42 80 ML Sodium Chloride 100 ml ONCE ONCE IV 05/29/22 14:30 05/29/22 14:31 DC 05/29/22 14:42 80 ML Vital Signs/I&O 05/29/22 05/29/22 13:15 16:13 Temp 36.7 Pulse 75 59 Resp 18 20 B/P (MAP) 118/66 (83) 148/65 Pulse Ox 98 96 O2 Delivery Room Air Room Air Fecal Occult: Positive Progress Progress Note : Time: 13:47 Progress Note Patient seen and evaluated, resting comfortably in bed, no acute distress. Based on exam and symptoms, work-up initiated including CBC, CMP, magnesium, troponin, chest x-ray, CT abdomen pelvis, fecal occult. [address] reviewed. CBC shows decreased WBC 3.7, decreased RBC 3.34, decreased hemoglobin 8.5, decrease hematocrit 28. CMP grossly normal, chloride slightly elevated 108, BUN slightly elevated 20, creatinine normal at 0.68, GFR 85. Troponin negative. Magnesium normal. Coags show elevated PT 17.7, elevated APTT 43. CT shows no acute abnormality. It does not identify an obvi ous source of bleeding. Results discussed with patient. Discussed admission with patient, patient is agreeable to admission. [address] Engle, hospitalist, regarding patient. He agrees to admit patient for observation to [facility]. He will place admission orders. Dr. Greenberg, surgery, agrees to see patient tomorrow. Initial ECG Impression Date: May 29, 2022 Initial ECG Impression Time: 14:15 Initial ECG Rate: 57 Initial ECG Rhythm: Normal Sinus Initial ECG Intervals: Normal Initial ECG Comparisson: Unchanged Diagnostic Imaging Diagonstic Imaging: CT Plain Films/CT/US/NM/MRI: abdomen, pelvis Comments [facility]. 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 TECHNIQUE: Multiple contiguous axial images were obtained through the abdomen and pelvis after the uneventful administration of intravenous contrast. All CT scans use one or more of the following dose optimizing techniques: automated exposure control, MA and/or KvP adjustment based on patient size and exam type or iterative reconstruction. HISTORY: GI bleed. COMPARISON: 01/09/2022. FINDINGS: Lung bases: The lung bases are clear. Solid organs: There are multiple cysts throughout the liver. Liver is otherwise unremarkable. The gallbladder is surgically absent. Mild dilatation of the common bile duct which may be secondary to reservoir effect from prior cholecystectomy. Pancreas is normal. Spleen is normal. Adrenal glands are normal. The kidneys are normal without hydronephrosis. Bowel: The stomach and small bowel are normal without obstruction. There is scattered colonic diverticulosis. The appendix is normal. Peritoneum: There is no intraperitoneal free fluid or free air. No suspicious lymphadenopathy. Vasculature: Calcification of the aorta without aneurysm. Musculoskeletal: Degenerative changes of the spine without suspicious osseous lesion or compression fracture. Surgical changes from right hip arthroplasty. Pelvis: The uterus and adnexa are normal. The urinary bladder is normal. IMPRESSION: 1. No acute abnormality in the abdomen or pelvis. 2. No obvious source of GI bleeding. Dictated by: Dictated on workstation # [id number] Dict: 05/29/22 1446 Trans: 05/29/22 1503 [facility] [id number] Interpreted by: NICHOLAS FARAH DO Electronically signed by: NICHOLAS FARAH DO 05/29/22 1503 Departure Communication (Admissions) Time/Spoke to Admitting Phy: 15:27 Dr. Engle, hospitalist, called for admission. He was patient admitted observation to [facility]. Time/Spoke to Consulting Phy: 14:32 Dr. Greenberg, surgery, called regarding patient. He will see patient in morning if she is admitted. Impression Primary Impression: GI bleed Disposition: ADMITTED INPATIENT Condition: Stable Admissions Decision to Admit Reason: Admit from ER (General) Decision to Admit/Date: May 29, 2022 Time/Decision to Admit Time: 15:27 Departure-Patient Inst. Referrals: ROGELIO CORBETT DO (PCP/Family) Primary Care Physician ESVIN KATZ APRN May 29, 2022 13:49
[2022-05-29 14:05] LABS: INR 1.4 (0.8-1.4); PROTHROMBIN TIME PATIENT 17.7 SEC (12.2-14.7)
--- NOTE | 2022-05-29 14:12 | Diagnostic Imaging Report ---
EXAMINATION: Chest radiograph, portable AP view. DATE: 05/29/2022 1:56 PM INDICATION: 86-year-old female, chest pain. COMPARISON: May 04, 2021. FINDINGS: There are median sternotomy wires. Heart size and mediastinal contours are unchanged. There is no identified pneumothorax. There is no large pleural effusion. There is no identified focal airspace consolidation. IMPRESSION: 1. No identified acute cardiopulmonary abnormality. Dictated by: Dictated on workstation # [id number]
[2022-05-29 14:15] LABS: ALBUMIN 3.5 GM/DL (3.2-4.5)
[2022-05-29 14:16] LABS: POTASSIUM 4.2 MMOL/L (3.6-5.0)
[2022-05-29 14:17] LABS: CALCIUM 8.9 MG/DL (8.5-10.1)
[2022-05-29 14:18] LABS: TOTAL PROTEIN 5.8 GM/DL (6.4-8.2)
[2022-05-29 14:20] LABS: BILIRUBIN,TOTAL 0.4 MG/DL (0.1-1.0)
[2022-05-29 14:22] LABS: CREATININE SERUM 0.68 MG/DL (0.60-1.30)
[2022-05-29] MEDS ORDERED: IOHEXOL 350 MG/ML 100 ML (OMNIPAQUE 350) VIAL IV ONE (14:30)
[2022-05-29] MEDS ORDERED: NS 100 ML (IVPB) BAG IV ONE (14:30)
[2022-05-29] MEDS ORDERED: HOLD METFORMIN - RECEIVED CONTRAST 20 ML VIAL IV SCH (14:30)
[2022-05-29] MEDS ORDERED: NS IV 1000 ML 1,000 ML IV SCH (14:45)
--- NOTE | 2022-05-29 15:04 | Diagnostic Imaging Report ---
EXAMINATION: CT abdomen and pelvis with intravenous contrast. TECHNIQUE: Multiple contiguous axial images were obtained through the abdomen and pelvis after the uneventful administration of intravenous contrast. All CT scans use one or more of the following dose optimizing techniques: automated exposure control, MA and/or KvP adjustment based on patient size and exam type or iterative reconstruction. HISTORY: GI bleed. COMPARISON: 01/09/2022. FINDINGS: Lung bases: The lung bases are clear. Solid organs: There are multiple cysts throughout the liver. Liver is otherwise unremarkable. The gallbladder is surgically absent. Mild dilatation of the common bile duct which may be secondary to reservoir effect from prior cholecystectomy. Pancreas is normal. Spleen is normal. Adrenal glands are normal. The kidneys are normal without hydronephrosis. Bowel: The stomach and small bowel are normal without obstruction. There is scattered colonic diverticulosis. The appendix is normal. Peritoneum: There is no intraperitoneal free fluid or free air. No suspicious lymphadenopathy. Vasculature: Calcification of the aorta without aneurysm. Musculoskeletal: Degenerative changes of the spine without suspicious osseous lesion or compression fracture. Surgical changes from right hip arthroplasty. Pelvis: The uterus and adnexa are normal. The urinary bladder is normal. IMPRESSION: 1. No acute abnormality in the abdomen or pelvis. 2. No obvious source of GI bleeding. Dictated by: Dictated on workstation # [id number]
[2022-05-29] MEDS ORDERED: ANTACID SUSP 30 ML UDC (MYLANTA) PO PRN (17:15)
[2022-05-29] MEDS ORDERED: ONDANSETRON 4 MG/2 ML (SDV) Z0FRAN IV PRN (17:15)
[2022-05-29] MEDS ORDERED: LACTULOSE SYRUP 10GM/15ML (ENULOSE) 30ML UDC PO PRN (17:15)
[2022-05-29] MEDS ORDERED: CALCIUM CARBONATE 500 MG (TUMS) TAB.CHEW PO PRN (17:15)
[2022-05-29] MEDS ORDERED: polyethylene glycoL POWDER 17 GM (MIRALAX) PACK PO PRN (17:15)
[2022-05-29] MEDS ORDERED: MELATONIN 3 MG TABLET PO PRN (17:15)
[2022-05-29] MEDS ORDERED: ONDANSETRON 4 MG (ZOFRAN) ORAL DISSOLVE TAB PO PRN (17:15)
[2022-05-29] MEDS ORDERED: MILK OF MAGNESIA 400 MG/5 ML 30 ML UDC PO PRN (17:15)
[2022-05-29] MEDS ORDERED: ACETAMINOPHEN 325 MG TABLET PO PRN (17:15)
[2022-05-29] MEDS ORDERED: BISACODYL 10 MG SUPP (DULCOLAX) PR PRN (17:15)
[2022-05-29] MEDS ORDERED: LACTATED RINGERS 1,000 ML IV ONE (17:35)
[2022-05-29] MEDS: LACTATED RINGERS 1,000 ML IV SCH (17:58)
[2022-05-29 19:30] VITALS: BP 165/71
[2022-05-29] MEDS: SENNOSIDES 8.6 MG (SENOKOT) TAB PO SCH (21:28)
[2022-05-29] MEDS: DOCUSATE SODIUM 100 MG (COLACE) CAP PO SCH (21:28)
[2022-05-30] VITALS (10 sets, daily range): BP systolic 118–157; BP diastolic 59–75
[2022-05-30 05:51] LABS: HEMOGLOBIN 7.2 g/dL (11.5-16.0)
[2022-05-30 06:05] LABS: CALCIUM 8.3 MG/DL (8.5-10.1); CREATININE SERUM 0.54 MG/DL (0.60-1.30); POTASSIUM 3.7 MMOL/L (3.6-5.0)
[2022-05-30] MEDS: LACTATED RINGERS 1,000 ML IV SCH (07:31)
[2022-05-30] MEDS ORDERED: NS IV 500 ML 500 ML IV SCH (08:45)
--- NOTE | 2022-05-30 09:15 | Consultation - Surgery ---
VANDANA MO 05/30/22 0915: History of Present Illness History of Present Illness Patient Consulted On(emmanuel/time) 05/30/22 7:00 Date Seen by Provider: May 30, 2022 Time Seen by Provider: 07:00 Reason for Visit: Melena History of Present Illness Pt is an 86yo female who was seen lying comfortably in her bed reading the newspaper she is being consulted for her melena, she is alert and oriented x4, she says that her stools have been a dark black color and says she decided to come in because its been getting more noticeable to her because the stools have been becoming more loose the last week. She denies any associated pain to the blood in the stools and denies having any recent falls, she was in the hospital for the same reasons in December for which she was treated conservatively and had no procedures done, she says the last colonoscopy she had was in october by Dr. Alarcon in [place] and that he said he hadnt seen anything abnormal. She is taking Xarelto which she says her cardiac doctor, Dr. Montes De Oca, changed from warfarin several months ago, on top of that she says she take 2 tylenol/day for her arthritis and has taken them for "a long time she cant remember". She denies any changes in pain with her diet or position, denies having GERD or acid refulx but mentions when she takes her pills she feels them "get stuck" in her epigastric region and that it slowly unsticks after time and moves down her bowels. Denies n/v/d, fevers or chills, cough, chest pain, abd pain, SOB, rectal pain, lightheadedness/dizziness, dysuria. Allergies and Home Medications Allergies Coded Allergies: No Known Drug Allergies (Verified , 06/04/07) Patient Home Medication List Acetaminophen (Tylenol 8 Hour) 650 Mg Tablet.er, 650-1,300 MG PO Q8H PRN for PAIN-MILD (1-4), (Reported) Entered as Reported by: ALEXIA BARAKAT on 01/10/22 0958 Last Action: Reviewed Atenolol (Atenolol) 25 Mg Tablet, 12.5 MG PO BID, (Reported) Entered as Reported by: ALEXIA BARAKAT on 01/21/19 1114 Last Action: Reviewed Calcium Carbonate (Calcium) 500 Mg Calcium (1250 Mg) Tablet, 500 MG PO DAILY, (Reported) Entered as Reported by: ALEXIA BARAKAT on 01/10/22957 Last Action: Reviewed Cholecalciferol (Vitamin D3) (Vitamin D3) 125 Mcg (5000 Unit) Tablet, 125 MCG PO DAILY, (Reported) Entered as Reported by: ALEXIA BARAKAT on 05/30/221100 Last Action: Reviewed Ergocalciferol (Vitamin D2) (Vitamin D2) 1,250 Mcg (60094 Unit) Capsule, 1,250 MCG PO 2X MONTHLY, (Reported) Entered as Reported by: ALEXIA BARAKAT on 01/10/22957 Last Action: Reviewed Fluoxetine HCl (Fluoxetine HCl) 10 Mg Capsule, 10 MG PO DAILY, (Reported) Entered as Reported by: ALEXIA BARAKAT on 05/30/221100 Last Action: Reviewed Letrozole (Letrozole) 2.5 Mg Tablet, 2.5 MG PO DAILY, (Reported) Entered as Reported by: ALEXIA BARAKAT on 05/30/221100 Last Action: Edited Lisinopril (Lisinopril) 20 Mg Tablet, 20 MG PO HS, (Reported) Entered as Reported by: ALEXIA BARAKAT on 01/10/22 1013 Last Action: Reviewed Rivaroxaban (Xarelto) 15 Mg Tablet, 15 MG PO HS, (Reported) Entered as Reported by: ALEXIA BARAKAT on 05/30/221100 Last Action: Reviewed Vit C/E/Zn/Coppr/Lutein/Zeaxan (Preservision Areds 2 Softgel) 250MG-90MG Capsule, 1 EACH PO BID, (Reported) Entered as Reported by: ALEXIA BARAKAT on 05/30/221100 Last Action: Reviewed [Prevagen] , 1 EA PO DAILY, (Reported) Entered as Reported by: ALEXIA BARAKAT on 05/30/221100 Last Action: Reviewed Discontinued Medications Cholecalciferol (Vitamin D3) (Vitamin D3) 25 Mcg (1000 Unit) Tablet, 75 MCG PO DAILY, (Reported) Discontinued Reason: Prescription changed Entered as Reported by: ALEXIA BARAKAT on 01/10/22 1000 Last Action: Last Taken Edited Fluoxetine HCl (Fluoxetine HCl) 10 Mg Capsule, 10 MG PO DAILY, (Reported) Discontinued Reason: No Longer Taking Entered as Reported by: NICHOLAS RENAE on 01/20/19 1814 Last Action: Discontinued Hydrocortisone Acetate (Anusol-Hc) 25 Mg Supp.rect, 25 MG RC BID Discontinued Reason: No Longer Taking Prescribed by: ROGELIO HASSAN on 01/13/221218 Last Action: Discontinued Letrozole (Letrozole) 2.5 Mg Tablet, 2.5 MG PO DAILY, (Reported) Discontinued Reason: No Longer Taking Entered as Reported by: ALEXIA BARAKAT on 01/10/22 09 Last Action: Discontinued Prednisone (Prednisone) 20 Mg Tab, 20 MG PO DAILY Discontinued Reason: No Longer Taking Prescribed by: ROGELIO HASSAN on 01/13/221218 Last Action: Discontinued Vit A/C/E/Zinc/Co (Preservision Areds Softgel) 14,320-226 Capsule, 1 CAP PO BID, (Reported) Discontinued Reason: Duplicate Order Entered as Reported by: ALEXIA BARAKAT on 01/10/22957 Last Action: Discontinued Past Cslhyfs-Zcelzj-Xslmyr Hx Patient Social History Smoking Status: Former Smoker (quit 46 years ago) Former Smoker, Quit: Apr 28, 1974 Type Used: Cigarettes 2nd Hand Smoke Exposure: Yes Recent Hopitalizations: Yes (Last eber for melena in [facility]) Alcohol Use?: No Substance type: Caffeine Have you traveled recently?: No Immunizations Up To Date Date of Pneumonia Vaccine: Jan 20, 2017 Date of Influenza Vaccine: Nov 13, 2021 Seasonal Allergies Seasonal Allergies: No Surgeries History of Surgeries: Yes Surgeries: Cardiac, CABG, Gallbladder, Joint Replacement (right knee ), Lumpectomy, Orthopedic, Tubal Ligation Respiratory History of Respiratory Disorde: No Cardiovascular History of Cardiac Disorders: Yes Cardiac Disorders: Atrial Fibrillation, Coronary Artery Disease, High Cholesterol, Hypertension, Valvular Heart Disease Neurological History of Neurological Disord: No 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 System Hx 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 Disorders: No Sexually Transmitted Disease: No HIV/AIDS: No Female 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 Disorders: Denies [employer] History: Menopausal Genitourinary History of Genitourinary Disor: No Genitourinary Disorders: Bladder Infection Gastrointestinal History of Gastrointestinal Di: Yes Gastrointestinal Disorders: Gastroesophageal Reflux, Hemorrhoids, Irritable Bowel Musculoskeletal History of Musculoskeletal Dis: Yes Musculoskeletal Disorders: Arthritis, Rheumatoid Arthritis Endocrine History of Endocrine Disorders: No HEENT History of HEENT Disorders: Yes HEENT Disorders: Cataract Loss of Vision: Bilateral Hearing Impairment: Hard of Hearing Cancer History of Cancer: Yes Cancer: Breast Psychosocial History of Psychiatric Problem: Yes Behavioral Health Disorders: Depression Integumentary History of Skin or Integumenta: No Blood Transfusions History of Blood Disorders: No Adverse Reaction to a Blood Tr: No Family Medical History Significant Family History: Heart Disease, Cancer, Hypertension, Stroke, Other Conditions/Hx Family Medial History: Cardiovascular disease G8 SISTER Completed stroke 19 MOTHER G8 SISTER FH: blood disorder 19 FATHER FH: lung cancer G8 SISTER FH: ovarian cancer G8 SISTER FHx: obesity G8 SISTER G8 SISTER G8 SISTER Hypertension 19 MOTHER Physical Exam-General Problems Physical Exam Vital Signs Vital Signs - First Documented 05/29/22 13:15 Temp 36.7 Pulse 75 Resp 18 B/P (MAP) 118/66 (83) Pulse Ox 98 O2 Delivery Room Air Capillary Refill : General Appearance: WD/WN, no apparent distress, obese Eyes: Bilateral Eye PERRL, Bilateral Eye EOMI HEENT: PERRL/EOMI; No scleral icterus (R), No scleral icterus (L), No photophobia Neck: non-tender, supple; No tender midline Respiratory: chest non-tender, lungs clear, no respiratory distress, no accessory muscle use Cardiovascular: regular rate, rhythm, no edema, systolic murmur Peripheral Pulses: 2+ Dorsalis Pedis (R), 2+ Left Dors-Pedis (L), 2+ Radial P ulses (R), 2+ Radial Pulses (L) Gastrointestinal: non tender, soft, no pulsatile mass; No distended, No gu arding Back: no CVA tenderness, vertebral tenderness Extremities: no pedal edema, no calf tenderness, other (her bones hurt her in both humerus bones and both legs "ache" 2-3/10) Neurologic/Psychiatric: alert, oriented x 3; No facial droop Skin: warm/dry; No jaundice, No rash Lymphatic: no adenopathy (anterior cervical region) Data Review Labs Laboratory Tests 05/29/22 13:39: White Blood Count 3.7L, Red Blood Count 3.34L, Hemoglobin 8.5L, Hematocrit 28L, Mean Corpuscular Volume 83, Mean Corpuscular Hemoglobin 25, Mean Corpuscular Hem oglobin Concent 31L, Red Cell Distribution Width 17.0H, Platelet Count 157, Mean Platelet Volume 11.5, Immature Granulocyte % (Auto) 0, Neutrophils (%) (Auto) 54, Lymphocytes (%) (Auto) 37, Monocytes (%) (Auto) 8, Eosinophils (%) (Auto) 1, Basophils (%) (Auto) 1, Neutrophils # (Auto) 2.0, Lymphocytes # (Auto) 1.4, Monocytes # (Auto) 0.3, Eosinophils # (Auto) 0.0, Basophils # (Auto) 0.0, Immature Granulocyte # (Auto) 0.0, Sodium Level 143, Potassium Level 4.2, Chlori de Level 108H, Carbon Dioxide Level 24, Anion Gap 11, Blood Urea Nitrogen 20H, Creatinine 0.68, Estimat Glomerular Filtration Rate 85, BUN/Creatinine Ratio 29, Glucose Level 105, Calcium Level 8.9, Corrected Calcium 9.3, Total Bilirubin 0.4, Aspartate Amino Transf (AST/SGOT) 14, Alanine Aminotransferase (ALT/SGPT) 12, Alkaline Phosphatase 26L, Total Protein 5.8L, Albumin 3.5 05/29/22 13:47: Magnesium Level 2.0, Troponin I < 0.028 05/29/22 13:56: Prothrombin Time 17.7H, INR Comment 1.4, Activated Partial Thromboplast Time 43H 05/30/22 05:00: Hemoglobin 7.2L, Hematocrit 24L, Sodium Level 144, Potassium Level 3.7, Chloride Level 111H, Carbon Dioxide Level 22, Anion Gap 11, Blood Urea Nitrogen 12, Crea tinine 0.54L, Estimat Glomerular Filtration Rate 90, BUN/Creatinine Ratio 22, Glucose Level 91, Calcium Level 8.3L Assessment/Plan Assessment/Plan Assessment/Plan Melena Diverticulosis Chronic anemia * Current Hgb is 7.2, transfusions ordered by Dr. Hassan today * Started on PPI and Antacids * EGD/Colonoscopy * establish date for procedure, pt is agreeable to the idea of the procedure JOSAFAT BERNABE DO 05/30/22 2604: History of Present Illness History of Present Illness Time Seen by Provider: 10:11 History of Present Illness Surgery asked to consult regarding anemia and melena. HPI per ED: 86-year-old female presents to the ED with complaints of generalized weakness for the last couple days and black liquid stools for the last couple of days. She reports she was admitted last December for colitis and rectal bleeding. She states she has chronic diarrhea, that has not changed, but now it is black in color. She is unable to quantify the number of black stools. She is unsure if she is passing clots. She reports she had normal colored bowel movements few days ago. She denies fevers, abdominal pain, nausea, vomiting. Reports shortness of air and weakness with exertion. Also reports upper back pain between shoulder blades with exertion. She takes Xarelto. She was on warfarin when she had the previous GI bleed, she was switched to Xarelto 1 to 2 months ago. When I saw her this am, she stated she was doing fine with no complaints. She states she has never had an EGD. Allergies and Home Medications Allergies Coded Allergies: No Known Drug Allergies (Verified , 06/04/07) Patient Home Medication List Home Medication List Reviewed: Yes Acetaminophen (Tylenol 8 Hour) 650 Mg Tablet.er, 650-1,300 MG PO Q8H PRN for PAIN-MILD (1-4), (Reported) Entered as Reported by: ALEXIA BARAKAT on 01/10/22957 Last Action: Reviewed Atenolol (Atenolol) 25 Mg Tablet, 12.5 MG PO BID, (Reported) Entered as Reported by: ALEXIA BARAKAT on 01/21/19 1114 Last Action: Reviewed Calcium Carbonate (Calcium) 500 Mg Calcium (1250 Mg) Tablet, 500 MG PO DAILY, (Reported) Entered as Reported by: ALEXIA BARAKAT on 01/10/22957 Last Action: Reviewed Cholecalciferol (Vitamin D3) (Vitamin D3) 125 Mcg (5000 Unit) Tablet, 125 MCG PO DAILY, (Reported) Entered as Reported by: ALEXIA BARAKAT on 05/30/22 110 Last Action: Reviewed Ergocalciferol (Vitamin D2) (Vitamin D2) 1,250 Mcg (56803 Unit) Capsule, 1,250 MCG PO 2X MONTHLY, (Reported) Entered as Reported by: ALEXIA BARAKAT on 01/10/22957 Last Action: Reviewed Fluoxetine HCl (Fluoxetine HCl) 10 Mg Capsule, 10 MG PO DAILY, (Reported) Entered as Reported by: ALEXIA BARAKAT on 05/30/22 110 Last Action: Reviewed Letrozole (Letrozole) 2.5 Mg Tablet, 2.5 MG PO DAILY, (Reported) Entered as Reported by: ALEXIA BARAKAT on 05/30/22 110 Last Action: Edited Lisinopril (Lisinopril) 20 Mg Tablet, 20 MG PO HS, (Reported) Entered as Reported by: ALEXIA BARAKAT on 01/10/22 1013 Last Action: Reviewed Rivaroxaban (Xarelto) 15 Mg Tablet, 15 MG PO HS, (Reported) Entered as Reported by: ALEXIA BARAKAT on 05/30/22 110 Last Action: Reviewed Vit C/E/Zn/Coppr/Lutein/Zeaxan (Preservision Areds 2 Softgel) 250MG-90MG Capsule, 1 EACH PO BID, (Reported) Entered as Reported by: ALEXIA BARAKAT on 05/30/221100 Last Action: Reviewed [Prevagen] , 1 EA PO DAILY, (Reported) Entered as Reported by: ALEXIA BARAKAT on 05/30/221100 Last Action: Reviewed Discontinued Medications Cholecalciferol (Vitamin D3) (Vitamin D3) 25 Mcg (1000 Unit) Tablet, 75 MCG PO DAILY, (Reported) Discontinued Reason: Prescription changed Entered as Reported by: ALEXIA BARAKAT on 01/10/22 1000 Last Action: Last Taken Edited Fluoxetine HCl (Fluoxetine HCl) 10 Mg Capsule, 10 MG PO DAILY, (Reported) Discontinued Reason: No Longer Taking Entered as Reported by: NICHOLAS RENAE on 01/20/19 1814 Last Action: Discontinued Hydrocortisone Acetate (Anusol-Hc) 25 Mg Supp.rect, 25 MG RC BID Discontinued Reason: No Longer Taking Prescribed by: ROGELIO HASSAN on 01/13/22 1219 Last Action: Discontinued Letrozole (Letrozole) 2.5 Mg Tablet, 2.5 MG PO DAILY, (Reported) Discontinued Reason: No Longer Taking Entered as Reported by: ALEXIA BARAKAT on 01/10/22 0958 Last Action: Discontinued Prednisone (Prednisone) 20 Mg Tab, 20 MG PO DAILY Discontinued Reason: No Longer Taking Prescribed by: ROGELIO HASSAN on 01/13/22 1219 Last Action: Discontinued Vit A/C/E/Zinc/Co (Preservision Areds Softgel) 14,320-226 Capsule, 1 CAP PO BID, (Reported) Discontinued Reason: Duplicate Order Entered as Reported by: ALEXIA BARAKAT on 01/10/22 0958 Last Action: Discontinued Past Wrqqsot-Loflue-Btqkwe Hx Patient Social History Smoking Status: Former Smoker (quit 46 years ago) 2nd Hand Smoke Exposure: Yes Recent Hopitalizations: Yes (Last novemeber for melena in [facility]) Substance type: Caffeine Surgeries History of Surgeries: Yes Surgeries: Cardiac, CABG, Gallbladder, Joint Replacement (right knee ), Lumpectomy, Orthopedic, Tubal Ligation Respiratory History of Respiratory Disorde: Yes Respiratory Disorders: COPD Cardiovascular History of Cardiac Disorders: Yes Cardiac Disorders: Coronary Artery Disease, Hypertension Genitourinary History of Genitourinary Disor: No Gastrointestinal History of Gastrointestinal Di: Yes Gastrointestinal Disorders: Gastroesophageal Reflux, Gastrointestinal Bleed, Hemorrhoids, Irritable Bowel Musculoskeletal History of Musculoskeletal Dis: Yes Musculoskeletal Disorders: Arthritis HEENT History of HEENT Disorders: Yes HEENT Disorders: Cataract Loss of Vision: Bilateral Hearing Impairment: Hard of Hearing Cancer History of Cancer: Yes Cancer: Breast Psychosocial History of Psychiatric Problem: Yes Behavioral Health Disorders: Depression Family Medical History Significant Family History: Heart Disease, Cancer, Hypertension Family Medial History: Cardiovascular disease G8 SISTER Completed stroke 19 MOTHER G8 SISTER FH: blood disorder 19 FATHER FH: lung cancer G8 SISTER FH: ovarian cancer G8 SISTER FHx: obesity G8 SISTER G8 SISTER G8 SISTER Hypertension 19 MOTHER Review of Systems-General Constitutional: No chills; malaise, weakness EENTM: No blurred vision, No epistaxis Respiratory: No dyspnea on exertion, No hemoptysis Cardiovascular: No chest pain; Hx of Intervention Gastrointestinal: No abdominal pain, No nausea, No vomiting Genitourinary: No dysuria, No frequency Musculoskeletal: back pain, joint pain Psychiatric/Neurological: Depressed Physical Exam-General Problems Physical Exam General Appearance: no apparent distress, obese Eyes: Bilateral Eye PERRL, Bilateral Eye EOMI HEENT: No scleral icterus (R), No scleral icterus (L) Neck: non-tender, supple Respiratory: chest non-tender, lungs clear, no respiratory distress, no accessory muscle use Cardiovascular: regular rate, rhythm, systolic murmur Gastrointestinal: non tender, soft, no organomegaly; No distended, No guarding Back: no CVA tenderness, vertebral tenderness Extremities: no pedal edema, no calf tenderness, other (her bones hurt her in both humerus bones and both legs "ache" 2-3/10) Neurologic/Psychiatric: alert, oriented x 3 Data Review Radiology Date of Exam:05/29/22 CT ABDOMEN/PELVIS W EXAMINATION: CT abdomen and pelvis with intravenous contrast. TECHNIQUE: Multiple contiguous axial images were obtained through the abdomen and pelvis after the uneventful administration of intravenous contrast. All CT scans use one or more of the following dose optimizing techniques: automated exposure control, MA and/or KvP adjustment based on patient size and exam type or iterative reconstruction. HISTORY: GI bleed. COMPARISON: 01/09/2022. FINDINGS: Lung bases: The lung bases are clear. Solid organs: There are multiple cysts throughout the liver. Liver is otherwise unremarkable. The gallbladder is surgically absent. Mild dilatation of the common bile duct which may be secondary to reservoir effect from prior cholecystectomy. Pancreas is normal. Spleen is normal. Adrenal glands are normal. The kidneys are normal without hydronephrosis. Bowel: The stomach and small bowel are normal without obstruction. There is scattered colonic diverticulosis. The appendix is normal. Peritoneum: There is no intraperitoneal free fluid or free air. No suspicious lymphadenopathy. Vasculature: Calcification of the aorta without aneurysm. Musculoskeletal: Degenerative changes of the spine without suspicious osseous lesion or compression fracture. Surgical changes from right hip arthroplasty. Pelvis: The uterus and adnexa are normal. The urinary bladder is normal. IMPRESSION: 1. No acute abnormality in the abdomen or pelvis. 2. No obvious source of GI bleeding. Dictated by: Dictated on workstation # [id number] Dict: 05/29/22 1446 Trans: 05/29/22 1503 [facility] [id number] Interpreted by: NICHOLAS FARAH DO Electronically signed by: NICHOLAS FARAH DO 05/29/22 1503 Assessment/Plan Assessment/Plan Assessment/Plan Senior Living Anticoagulation - hold Xarelto Melena Diverticulosis Chronic anemia * Current Hgb is 7.2, transfusions ordered by Dr. Hassan today * Started on PPI and Antacids * EGD * will plan for tomorrow, will get consent and NPO after MN, pt is agreeable to the idea of the procedure Supervisory-Addendum Brief Verification & Attestation Participated in pt care: history, MDM, physical Personally performed: exam, history, MDM, supervision of care Care discussed with: Medical Student Procedures: n/a Verification and Attestation of Medical Student E/M Service A medical student performed and documented this service. I then reviewed and verified all information documented by the medical student and made modifications to such information, when appropriate. I personally performed a physical exam, medical decision making and then discussed any differences between the notes and made revisions as necessary to create one note. Josafat Bernabe , 05/30/22 , 13:59 VANDANA MO May 30, 2022 09:15 JOSAFAT BERNABE DO May 30, 2022 13:54
[2022-05-30] MEDS: PANTOPRAZOLE 40 MG (PROTONIX) VIAL IV SCH ×2 (09:35→21:18)
[2022-05-30] MEDS: SENNOSIDES 8.6 MG (SENOKOT) TAB PO SCH ×2 (09:36→19:35)
[2022-05-30] MEDS: DOCUSATE SODIUM 100 MG (COLACE) CAP PO SCH ×2 (09:36→19:35)
[2022-05-30] MEDS ORDERED: RIVA15TA PO (11:01)
[2022-05-30] MEDS ORDERED: PREVAGEN PO (11:01)
[2022-05-30] MEDS ORDERED: FLUO10CA33 PO (11:01)
[2022-05-30] MEDS ORDERED: CALC-250 PO (11:01)
[2022-05-30] MEDS ORDERED: LETR2.5T6 PO (11:01)
[2022-05-30] MEDS ORDERED: VIT1CAPS44 PO (11:01)
[2022-05-30 14:52] LABS: HEMOGLOBIN 8.3 g/dL (11.5-16.0)
--- NOTE | 2022-05-30 17:25 | History & Physical ---
History of Present Illness History of Present Illness Reason for visit/HPI This is a 86 year old female with a history of PAF, aortic stenosis and CAD who had a previous lower GI hemorrhage in December of 2021. At that time she was on warfarin and was treated conservatively with holding of blood thinners, IV iron and treatment of proctitis as she was having hematochezia. She had a follow up with Dr. Sadler and was changed from Warfarin to Xarelto. She presented to the ER with a one week history of black, diarrhea stools. She was found to be anemic with hemoglobin and hematocrit of 8.5 and 28 respectively. She will be admitted for further evaluation and treatment with surgical consult. She did have a colonoscopy with Dr. Alarcon in October of 2021. Date of Admission May 29, 2022 at 16:55 Date Seen by a Provider: May 30, 2022 Time Seen by a Provider: 08:40 I consulted on this patient on 05/30/22 17:16 Attending Physician Rogelio Hassan DO Admitting Physician Admitting Physician: Rosa nEgle MD Attending Physician: Rogelio Hassan DO Consult Allergies and Home Medications Allergies Coded Allergies: No Known Drug Allergies (Verified , 06/04/07) Patient Home Medication List Home Medication List Reviewed: Yes Acetaminophen (Tylenol 8 Hour) 650 Mg Tablet.er, 650-1,300 MG PO Q8H PRN for PAIN-MILD (1-4), (Reported) Entered as Reported by: ALEXIA BARAKAT on 01/10/22 0958 Last Action: Reviewed Atenolol (Atenolol) 25 Mg Tablet, 12.5 MG PO BID, (Reported) Entered as Reported by: ALEXIA BARAKAT on 01/21/19 1114 Last Action: Reviewed Calcium Carbonate (Calcium) 500 Mg Calcium (1250 Mg) Tablet, 500 MG PO DAILY, (Reported) Entered as Reported by: ALEXIA BARAKAT on 01/10/22 09 Last Action: Reviewed Cholecalciferol (Vitamin D3) (Vitamin D3) 125 Mcg (5000 Unit) Tablet, 125 MCG PO DAILY, (Reported) Entered as Reported by: ALEXIA BARAKAT on 05/30/22 1101 Last Action: Reviewed Ergocalciferol (Vitamin D2) (Vitamin D2) 1,250 Mcg (46071 Unit) Capsule, 1,250 MCG PO 2X MONTHLY, (Reported) Entered as Reported by: ALEXIA BARAKAT on 01/10/22957 Last Action: Reviewed Fluoxetine HCl (Fluoxetine HCl) 10 Mg Capsule, 10 MG PO DAILY, (Reported) Entered as Reported by: ALEXIA BARAKAT on 05/30/221100 Last Action: Reviewed Letrozole (Letrozole) 2.5 Mg Tablet, 2.5 MG PO DAILY, (Reported) Entered as Reported by: ALEXIA BARAKAT on 05/30/221100 Last Action: Edited Lisinopril (Lisinopril) 20 Mg Tablet, 20 MG PO HS, (Reported) Entered as Reported by: ALEXIA BARAKAT on 01/10/22 1013 Last Action: Reviewed Rivaroxaban (Xarelto) 15 Mg Tablet, 15 MG PO HS, (Reported) Entered as Reported by: ALEXIA BARAKAT on 05/30/221100 Last Action: Reviewed Vit C/E/Zn/Coppr/Lutein/Zeaxan (Preservision Areds 2 Softgel) 250MG-90MG Capsule, 1 EACH PO BID, (Reported) Entered as Reported by: ALEXIA BARAKTA on 05/30/221100 Last Action: Reviewed [Prevagen] , 1 EA PO DAILY, (Reported) Entered as Reported by: ALEXIA BARAKAT on 05/30/221100 Last Action: Reviewed Discontinued Medications Cholecalciferol (Vitamin D3) (Vitamin D3) 25 Mcg (1000 Unit) Tablet, 75 MCG PO DAILY, (Reported) Discontinued Reason: Prescription changed Entered as Reported by: ALEXIA BARAKAT on 01/10/22 1000 Last Action: Last Taken Edited Fluoxetine HCl (Fluoxetine HCl) 10 Mg Capsule, 10 MG PO DAILY, (Reported) Discontinued Reason: No Longer Taking Entered as Reported by: NICHOLAS RENAE on 01/20/19 1814 Last Action: Discontinued Hydrocortisone Acetate (Anusol-Hc) 25 Mg Supp.rect, 25 MG RC BID Discontinued Reason: No Longer Taking Prescribed by: ROGELIO HASSAN on 01/13/22 1219 Last Action: Discontinued Letrozole (Letrozole) 2.5 Mg Tablet, 2.5 MG PO DAILY, (Reported) Discontinued Reason: No Longer Taking Entered as Reported by: ALEXIA BARAKAT on 01/10/22 09 Last Action: Discontinued Prednisone (Prednisone) 20 Mg Tab, 20 MG PO DAILY Discontinued Reason: No Longer Taking Prescribed by: ROGELIO HASSAN on 01/13/22 1219 Last Action: Discontinued Vit A/C/E/Zinc/Co (Preservision Areds Softgel) 14,320-226 Capsule, 1 CAP PO BID, (Reported) Discontinued Reason: Duplicate Order Entered as Reported by: ALEXIA BARAKAT on 01/10/22 0944 Last Action: Discontinued Past Bzmczcy-Cstccn-Twfozt Hx Patient Social History Tobacco Use?: No Smoking Status: Former Smoker (quit 46 years ago) Use of E-Cig and/or Vaping dev: No Substance use?: No Substance type: Caffeine Alcohol Use?: No Pt feels they are or have been: No Immunizations Up To Date Date of Influenza Vaccine: Nov 13, 2021 First/Initial COVID19 Vaccinat: UNKNOWN DATE Second COVID19 Vaccination Kole: UNKNOWN DATE Tetanus Booster (TDap): Less Than 5 Years Date of Pneumonia Vaccine: Jan 20, 2017 Seasonal Allergies Seasonal Allergies: No Current Status status: No status: No Advance Directives: Yes Advance Directive Location: Patient says they are at home with son, unsure if completed or not Communicates: Verbally Primary Language: Chadian Preferred Spoken Language: Chadian Sensory deficits: Vision impairment, Hearing impairment Past Medical History Surgeries: Cardiac, CABG, Gallbladder, Joint Replacement (right knee ), Lumpectomy, Orthopedic, Tubal Ligation COPD Coronary Artery Disease, 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 Sexually Transmitted Disease: No HIV/AIDS: No Bladder Infection Gastroesophageal Reflux, Gastrointestinal Bleed, Hemorrhoids, Irritable Bowel Arthritis Cataract Loss of Vision: Bilateral Hearing Impairment: Hard of Hearing Breast Depression Blood Disorders: No Adverse Reaction/Blood Tranf: No Family Medical History Cardiovascular disease G8 SISTER Completed stroke 19 MOTHER G8 SISTER FH: blood disorder 19 FATHER FH: lung cancer G8 SISTER FH: ovarian cancer G8 SISTER FHx: obesity G8 SISTER G8 SISTER G8 SISTER Hypertension 19 MOTHER Heart Disease, Cancer, Hypertension ovarian CA, Breast CA, Lung CA, heart disease, father from stroke Review of Systems Constitutional: weakness EENTM: No see HPI, No no symptoms reported, No ear discharge, No hearing loss, No ear pain, No blurred vision, No double vision, No eye pain, No tearing, No vision loss, No dental problems, No hoarseness, No mouth pain, No mouth swelling, No epistaxis, No nose congestion, No nose pain, No throat pain, No throat swelling, No other Respiratory: No no symptoms reported, No see HPI, No cough, No dyspnea on exertion, No hemoptysis, No orthopnea, No phlegm, No short of breath, No stridor, No wheezing, No other Cardiovascular: vascular heart diseas Gastrointestinal: melena Genitourinary: No no symptoms reported, No see HPI, No decreased output, No discharge, No dysuria, No frequency, No hematuria, No hesitancy, No incontinence, No nocturia, No pain, No other Musculoskeletal: joint pain, muscle pain, muscle weakness Psychiatric/Neurological: Weakness Physical Exam Vital Signs Vital Signs - First Documented 05/29/22 13:15 Temp 36.7 Pulse 75 Resp 18 B/P (MAP) 118/66 (83) Pulse Ox 98 O2 Delivery Room Air Capillary Refill : Height, Weight, BMI Height: 5'4.00" Weight: 211lbs. 0.0oz. 95.910085ld; 32.81 BMI Method:Stated General Appearance: No Apparent Distress HEENT: Pale Conjunctivae (L), Pale Conjunctivae (R) Neck: Supple Respiratory: Lungs Clear Cardiovascular: Regular Rate, Rhythm, Systolic Murmur, Gallop/S4 Gastrointestinal: Normal Bowel Sounds, Non Tender, Soft Rectal: Black Stool Back: Normal Inspection Neurologic/Psychiatric: Alert, Oriented x3 Skin: Pallor Comments Laboratory Tests 05/30/22 05:00: Hemoglobin 7.2L, Hematocrit 24L, Sodium Level 144, Potassium Level 3.7, Chloride Level 111H, Carbon Dioxide Level 22, Anion Gap 11, Blood Urea Nitrogen 12, Creatinine 0.54L, Estimat Glomerular Filtration Rate 90, BUN/Creatinine Ratio 22, Glucose Level 91, Calcium Level 8.3L 05/30/22 14:40: Hemoglobin 8.3L, Hematocrit 27L Assessment/Plan Assessment and Plan 1. Melena/Acute Gastrointestinal Hemorrhage with Acute Anemia--blood thinners on hold, start IV protonix, transfuse 1u pRBCs today due to hemoglobin 7.2 with cardiac issues, surgery consulted to decide on endoscopy 2. Paroxysmal Atrial Fibrillation--in NSR, hold xarelto 3. History of CAD--stable 4. Aortic Stenosis--followed by Dr. Sadler 5. Rheumatoid arthritis--follows with Dr. Brand Admission Diagnosis Admission Status: Inpatient Order (span 2 midnights) Reason for Inpatient Admission: Will need iv protonix, monitoring of h/h with transfusion if needed and endoscopy ROGELIO HASSAN DO May 30, 2022 17:25
[2022-05-31] VITALS (7 sets, daily range): BP systolic 133–158; BP diastolic 70–83
[2022-05-31] MEDS: LACTATED RINGERS 1,000 ML IV SCH ×2 (02:03→10:25)
[2022-05-31 06:36] LABS: WHITE BLOOD COUNT 3.1 10^3/uL (4.3-11.0)
[2022-05-31 06:58] LABS: CALCIUM 8.3 MG/DL (8.5-10.1); CREATININE SERUM 0.57 MG/DL (0.60-1.30); POTASSIUM 3.6 MMOL/L (3.6-5.0)
[2022-05-31] MEDS ORDERED: HURRICAINE EXT TUBE (BENZOCAINE) XX PRN (08:30)
--- NOTE | 2022-05-31 08:47 | Progress Note - Surgery ---
Subjective Time Seen by a Provider: 08:39 Subjective/Events-last exam Pt seen and examined, no complaints and states she is ready for EGD. Review of Systems General: No Chills, No Night Sweats; Fatigue Pulmonary: No Dyspnea, No Cough Cardiovascular: No: Chest Pain, Palpitations Gastrointestinal: No: Nausea, Vomiting, Abdominal Pain Objective Exam Vital Signs Date Time Temp Pulse Resp B/P (MAP) Pulse Ox O2 Delivery O2 Flow Rate FiO2 05/31/22 07:52 37.1 75 18 156/75 (102) 93 Room Air 05/31/22 07:44 65 05/31/22 04:04 36.9 72 18 139/75 (96) 93 Room Air 05/31/22 01:17 73 05/30/22 23:47 36.7 78 18 157/75 (102) 95 Room Air 05/30/22 20:37 37.2 81 16 147/74 (98) 98 Room Air 05/30/22 20:00 Room Air 05/30/22 19:28 78 05/30/22 15:42 36.9 68 20 147/70 (95) 98 Room Air 05/30/22 13:07 37.2 72 20 129/59 94 Room Air 05/30/22 12:46 67 05/30/22 12:00 36.4 63 16 141/68 (92) 98 Room Air 05/30/22 11:01 36.6 63 18 146/66 96 Room Air 05/30/22 10:46 36.2 62 16 122/61 94 Room Air I & O 05/31/22 07:00 Intake Total 3520 ml Output Total 1350 ml Balance 2170 ml Capillary Refill : General Appearance: No Apparent Distress HEENT: Moist Mucous Membranes, Pale Conjunctivae (L), Pale Conjunctivae (R) Respiratory: Lungs Clear, Normal Breath Sounds, No Accessory Muscle Use, No Res piratory Distress Cardiovascular: Regular Rate, Rhythm, Systolic Murmur, Gallop/S4 Peripheral Pulses: 2+ Dorsalis Pedis (R), 2+ Left Dors-Pedis (L), 2+ Radial Pulses (R), 2+ Radial Pulses (L) Gastrointestinal: non tender, soft, no organomegaly Neurologic/Psychiatric: Alert, Oriented x3 Skin: Pallor Results Lab Laboratory Tests 05/30/22 14:40: Hemoglobin 8.3L, Hematocrit 27L 05/31/22 06:24: Hemoglobin 9.0L, Hematocrit 29L, White Blood Count 3.1L, Red Blood Count 3.56L, Mean Corpuscular Volume 81, Mean Corpuscular Hemoglobin 25, Mean Corpuscular Hemoglobin Concent 31L, Red Cell Distribution Width 17.0H, Platelet Count 132, Mean Platelet Volume 11.0, Percent Immature Platelet Fraction 5.0, Sodium Level 145, Potassium Level 3.6, Chloride Level 111H, Carbon Dioxide Level 25, Anion Gap 9, Blood Urea Nitrogen 5L, Creatinine 0.57L, Estimat Glomerular Filtration Rate 88, BUN/Creatinine Ratio 9, Glucose Level 95, Calcium Level 8.3L Assessment/Plan Assessment/Plan Assessment/Plan 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 Hassan today * Started on PPI and Antacids * EGD * today, pt is agreeable to the idea of the procedure JOSAFAT BERNABE DO May 31, 2022 08:47
--- NOTE | 2022-05-31 08:47 | Progress Note - Surgery ---
Subjective Date Seen by a Provider: May 31, 2022 Time Seen by a Provider: 06:30 Subjective/Events-last exam pt was woken up and said she still has new new onset of symptoms, she had two bowel movements yesterday still with blood in her stool, she is agreeable to having her EGD today. She denied any pain, n/v/d, CP, SOB, or fever/chills. Objective Exam Vital Signs Date Time Temp Pulse Resp B/P (MAP) Pulse Ox O2 Delivery O2 Flow Rate FiO2 05/31/22 07:52 37.1 75 18 156/75 (102) 93 Room Air 05/31/22 07:44 65 05/31/22 04:04 36.9 72 18 139/75 (96) 93 Room Air 05/31/22 01:17 73 05/30/22 23:47 36.7 78 18 157/75 (102) 95 Room Air 05/30/22 20:37 37.2 81 16 147/74 (98) 98 Room Air 05/30/22 20:00 Room Air 05/30/22 19:28 78 05/30/22 15:42 36.9 68 20 147/70 (95) 98 Room Air 05/30/22 13:07 37.2 72 20 129/59 94 Room Air 05/30/22 12:46 67 05/30/22 12:00 36.4 63 16 141/68 (92) 98 Room Air 05/30/22 11:01 36.6 63 18 146/66 96 Room Air 05/30/22 10:46 36.2 62 16 122/61 94 Room Air I & O 05/31/22 07:00 Intake Total 3520 ml Output Total 1350 ml Balance 2170 ml Capillary Refill : General Appearance: No Apparent Distress, Obese HEENT: PERRL/EOMI, Moist Mucous Membranes; No Photophobia Neck: Non Tender, Supple Respiratory: Lungs Clear, No Accessory Muscle Use, No Respiratory Distress Cardiovascular: Regular Rate, Rhythm, Systolic Murmur Peripheral Pulses: 2+ Dorsalis Pedis (R), 2+ Left Dors-Pedis (L), 2+ Radial Pulses (R), 2+ Radial Pulses (L) Gastrointestinal: non tender, soft, no organomegaly; No distended, No guarding Extremity: Non Tender, No Pedal Edema Neurologic/Psychiatric: Alert, Oriented x3 Skin: Warm/Dry, Pallor Lymphatic: No Adenopathy (cervical) Results Lab Laboratory Tests 05/30/22 14:40: Hemoglobin 8.3L, Hematocrit 27L 05/31/22 06:24: Hemoglobin 9.0L, Hematocrit 29L, White Blood Count 3.1L, Red Blood Count 3.56L, Mean Corpuscular Volume 81, Mean Corpuscular Hemoglobin 25, Mean Corpuscular Hemoglobin Concent 31L, Red Cell Distribution Width 17.0H, Platelet Count 132, Mean Platelet Volume 11.0, Percent Immature Platelet Fraction 5.0, Sodium Level 145, Potassium Level 3.6, Chloride Level 111H, Carbon Dioxide Level 25, Anion Gap 9, Blood Urea Nitrogen 5L, Creatinine 0.57L, Estimat Glomerular Filtration Rate 88, BUN/Creatinine Ratio 9, Glucose Level 95, Calcium Level 8.3L Assessment/Plan Assessment/Plan 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
[2022-05-31] MEDS ORDERED: PROPOFOL INJECTION 50 ML IV ONE (08:49)
--- NOTE | 2022-05-31 09:09 | Progress Note-Post Operative ---
Post-Operative Progess Note Surgeon (s)/Machine Shop Instructor (s) Surgeon JOSAFAT BERNABE DO Machine Shop Instructor: none Pre-Operative Diagnosis Melena, Anemia Post-Operative Diagnosis Hiatal hernia Esophagitis Procedure & Operative Findings Date of Procedure 05/31/22 Procedure Performed/Findings EGD with biopsy PROCEDURE NOTE: After informed consent was obtained, the patient was brought to the endoscopy suite, placed in bed in left lateral decubitus position. She was administered IV sedation by the ARTIST COLOR SEPARATION who then monitored vitals the entire time, heart rate, blood pressure and pulse ox and the scope was inserted down the mouth through the esophagus into the stomach. On the way down, noted some mild esophagitis, pushed into the stomach and pushed past the antrum into the duodenum. Duodenum looked good; I did not see any ulcer in 1st, 2nd or 3rd portion. Pulled back and looked at the antrum, then retroflexed the scope and saw a hiatal hernia; took a picture of this. I did not see any ulcers in the stomach and really no inflammation. Then pulled the scope into the GE junction, took another picture of the hiatal hernia and then did a biopsy of the GE junction. Pushed the scope back into the stomach, suctioned all the air out of the stomach. At this point pulled the scope up the esophagus and out the mouth. The patient tolerated the procedure, and she recovered in endoscopy suite. Anesthesia Type IV sedation by ARTIST COLOR SEPARATION Estimated Blood Loss Estimated blood loss (mL): scant Specimens/Packing Specimens Removed GE jxn bx JOSAFAT BERNABE DO May 31, 2022 09:09
--- NOTE | 2022-05-31 09:11 | Anesthesia-General Post-Op ---
MAC Patient Condition Mental Status/LOC: Same as Preop Cardiovascular: Satisfactory Nausea/Vomiting: Absent Respiratory: Satisfactory Pain: Controlled Complications: Absent Post Op Complications Complications None Follow Up Care/Instructions Patient Instructions None needed. Anesthesiology Discharge Order Discharge Order Patient is doing well, no complaints, stable vital signs, no apparent adverse anesthesia problems. No complications reported per nursing. BRENDA PERKINS CRNA May 31, 2022 09:11
[2022-05-31] MEDS: DOCUSATE SODIUM 100 MG (COLACE) CAP PO SCH ×2 (10:21→21:49)
[2022-05-31] MEDS: SENNOSIDES 8.6 MG (SENOKOT) TAB PO SCH ×2 (10:22→21:49)
[2022-05-31] MEDS: PANTOPRAZOLE 40 MG (PROTONIX) VIAL IV SCH ×2 (10:25→21:42)
--- NOTE | 2022-05-31 19:14 | Progress Note ---
Subjective Date Seen by a Provider: May 31, 2022 Time Seen by a Provider: 12:45 Subjective/Events-last exam Fwup melena, acute GI Hemorrhage, acute blood loss anemia, HTN, Hx of PAF, Aortic Valve Stenosis, RA. Had EGD this morning and found gastritis but no active bleeding. Objective Exam Vital Signs Date Time Temp Pulse Resp B/P (MAP) Pulse Ox O2 Delivery O2 Flow Rate FiO2 05/31/22 15:40 36.5 75 19 158/70 (99) 97 Room Air 05/31/22 12:49 71 05/31/22 11:49 36.9 77 18 144/70 (94) 94 Room Air 05/31/22 10:26 Room Air 05/31/22 09:10 85 16 98 Room Air 05/31/22 07:52 37.1 75 18 156/75 (102) 93 Room Air 05/31/22 07:44 65 05/31/22 04:04 36.9 72 18 139/75 (96) 93 Room Air 05/31/22 01:17 73 05/30/22 23:47 36.7 78 18 157/75 (102) 95 Room Air 05/30/22 20:37 37.2 81 16 147/74 (98) 98 Room Air 05/30/22 20:00 Room Air 05/30/22 19:28 78 I & O 05/31/22 07:00 Intake Total 3520 ml Output Total 1350 ml Balance 2170 ml Capillary Refill : General Appearance: No Apparent Distress Respiratory: Lungs Clear Cardiovascular: Regular Rate, Rhythm, Systolic Murmur Gastrointestinal: normal bowel sounds, non tender, soft Extremity: Non Tender, No Calf Tenderness, No Pedal Edema Neurologic/Psychiatric: Alert, Oriented x3 Results Lab Laboratory Tests 05/31/22 06:24: White Blood Count 3.1L, Red Blood Count 3.56L, Hemoglobin 9.0L, Hematocrit 29L, Mean Corpuscular Volume 81, Mean Corpuscular Hemoglobin 25, Mean Corpuscular Hemoglobin Concent 31L, Red Cell Distribution Width 17.0H, Platelet Count 132, Mean Platelet Volume 11.0, Percent Immature Platelet Fraction 5.0, Sodium Level 145, Potassium Level 3.6, Chloride Level 111H, Carbon Dioxide Level 25, Anion Gap 9, Blood Urea Nitrogen 5L, Creatinine 0.57L, Estimat Glomerular Filtration Rate 88, BUN/Creatinine Ratio 9, Glucose Level 95, Calcium Level 8.3L 05/31/22 13:02: Lab Scanned Report Transfusion Reaction Form Assessment/Plan Assessment/Plan Assess & Plan/Chief Complaint 1. Acute Melena/Acute Gastrointestinal Hemorrhage--S/P EGD, on IV protonix, discussed may need capsule endoscopy--will follow up with GI 2. Acute Blood Loss Anema--S/P transfusion--H/H stable, AM CBC 3. Hypertension--Stable 4. History of PAF--blood thinners on hold and will fwup with cardiology 5. RA--follows with rheumatology Clinical Quality Measures Admission Status Admission Dx 1. Melena/Acute Gastrointestinal Hemorrhage with Acute Anemia--blood thinners on hold, start IV protonix, transfuse 1u pRBCs today due to hemoglobin 7.2 with cardiac issues, surgery consulted to decide on endoscopy 2. Paroxysmal Atrial Fibrillation--in NSR, hold xarelto 3. History of CAD--stable 4. Aortic Stenosis--followed by Dr. Sadler 5. Rheumatoid arthritis--follows with ROGELIO Mascorro DO May 31, 2022 19:14
[2022-06-01 03:36] VITALS: BP 152/85
[2022-06-01 06:18] LABS: HEMOGLOBIN 8.7 g/dL (11.5-16.0); MEAN PLATELET VOLUME 10.5 fL (9.0-12.2); WHITE BLOOD COUNT 3.9 10^3/uL (4.3-11.0)
[2022-06-01] MEDS: PANTOPRAZOLE 40 MG (PROTONIX) VIAL IV SCH (08:07)
[2022-06-01] MEDS: DOCUSATE SODIUM 100 MG (COLACE) CAP PO SCH (08:07)
[2022-06-01] MEDS: SENNOSIDES 8.6 MG (SENOKOT) TAB PO SCH (08:07)
[2022-06-01 08:39] VITALS: BP 139/65
[2022-06-01 11:42] VITALS: BP 139/63
[2022-06-01] MEDS ORDERED: PANT40TA2 PO (12:55)
[2022-06-01 14:13] VITALS: BP 139/63
== END 2022-06-01 14:13 | disposition home or self-care (01) ==
LOC: EDUNIT# 13:08 → ER 13:11 → 4TH 16:55
PROVIDERS: ADMIT Internal Medicine; ATTEND Family Medicine
DX: K21.00 Gastro-esophageal reflux disease with esophagitis, without bleeding (principal); K92.1 Melena; D64.9 Anemia, unspecified; K44.9 Diaphragmatic hernia without obstruction or gangrene; D62 Acute posthemorrhagic anemia; K57.30 Diverticulosis of large intestine without perforation or abscess without bleeding; I10 Essential (primary) hypertension; I25.10 Atherosclerotic heart disease of native coronary artery without angina pectoris; I35.0 Nonrheumatic aortic (valve) stenosis; I48.0 Paroxysmal atrial fibrillation; E66.9 Obesity, unspecified; M06.9 Rheumatoid arthritis, unspecified; Z79.899 Other long term (current) drug therapy; Z79.01 Long term (current) use of anticoagulants; Z87.891 Personal history of nicotine dependence; Z68.33 Body mass index [BMI] 33.0-33.9, adult
CPT/HCPCS: 36430; 43239; 71045; 74177; 80048 ×2; 80053; 82274; 83735; 84484; 85014; 85018; 85025; 85027 ×2; 85610; 85730; 86850; 86900; 86901; 86920; 93005; 93041; 96361 ×3; 96375; 96376 ×2; 99284; G0378; P9016; 36415

== ENCOUNTER → 2022-07-19 | Outpatient (CLI) | payer MEDICARE ==
[~2022-07-19] MED LIST changes: +CALC-250 PO; +PANT40TA2 PO; +PREVAGEN PO; +RIVA15TA PO
--- NOTE | 2022-07-19 17:43 | Diagnostic Imaging Report ---
PROCEDURE: US Thyroid. TECHNIQUE: Multiple real-time grayscale images were obtained of the thyroid in various projections. INDICATION: Right-sided otalgia. COMPARISON: None available. FINDINGS: Right thyroid lobe: The right thyroid lobe measures 3.5 x 1.3 x 2.0 cm. There is a solid nodule that has ill-defined margins and is isoechoic with no echogenic foci measuring 1.2 x 1.4 x 1.6 cm, TI-RADS 3. Isthmus: The thyroid isthmus measures 0.6 cm and without nodule. Left thyroid lobe: The left thyroid lobe measures 2.1 x 1.1 x 1.1 cm. No left-sided thyroid nodule. IMPRESSION:Mildly suspicious right thyroid nodule. Consider follow-up ultrasound in 12 months to assess stability. ACR TI-RADS: TR3 . TI-RADS Recommendations:TR3 - Mildly Suspicious. FNA if > 2.5 cm. Follow if > 1.5 cm at 1, 3, 5 years. Dictated by: Dictated on workstation # [id number]
== END ==
LOC: RAD 10:14
PROVIDERS: ATTEND Registered Nurse Critical Care Medicine
DX: H92.01 Otalgia, right ear (principal); H66.001 Acute suppurative otitis media without spontaneous rupture of ear drum, right ear; I89.1 Lymphangitis; M79.18 Myalgia, other site; N30.01 Acute cystitis with hematuria; L23.9 Allergic contact dermatitis, unspecified cause; F32.9 Major depressive disorder, single episode, unspecified; M06.80 Other specified rheumatoid arthritis, unspecified site
CPT/HCPCS: 76536